=== PATIENT | male | born 1960 | race Caucasian/White ===

== ENCOUNTER 2018-04-03 10:17 | Emergency (ER) | payer BC ==
[2018-04-03 11:23] LABS: BASO # 0.1 10^3/uL (0.0-0.2); BASO % 1.2 % (0.0-1.0); EOS # 0.1 10^3/uL (0.0-0.50); EOS % 2.2 % (0.0-3.0); HEMATOCRIT 37.4 % (42.0-52.0); HEMOGLOBIN 12.4 g/dl (13.5-17.5); IMMATURE GRANULOCYTE % 0.2 % (0-3.0); LYMPH # 1.4 10^3/uL (1.5-4.5); LYMPH % 33.2 % (24.0-44.0); MEAN CORPUSCULAR HEMOGLOBIN 33.7 pg (27.0-33.0); MEAN CORPUSCULAR HGB CONC 33.2 g/dl (32.0-36.5); MEAN CORPUSCULAR VOLUME 101.6 fl (80.0-96.0); MONO # 0.5 10^3/uL (0.0-0.8); NEUTROPHILS # 2.1 10^3/uL (1.8-7.7); NEUTROPHILS % 51.2 % (36.0-66.0); PLATELET COUNT, AUTOMATED 204 10^3/uL (150-450); RED BLOOD COUNT 3.68 10^6/uL (4.30-6.10); RED CELL DISTRIBUTION WIDTH 11.4 % (11.5-14.5); WHITE BLOOD COUNT 4.2 10^3/uL (4.0-10.0)
[2018-04-03] MEDS: dexameTHASONE 20 MG/5 ML VIAL (J1100) IV (11:38)
[2018-04-03 11:41] LABS: ALBUMIN 3.6 GM/DL (3.2-5.2); ALKALINE PHOSPHATASE 116 U/L (45-117); ALT/SGPT 80 U/L (12-78); ANION GAP 9 MEQ/L (8-16); AST/SGOT 67 U/L (7-37); BILIRUBIN,DIRECT 0.2 MG/DL (0.0-0.2); BILIRUBIN,TOTAL 0.3 MG/DL (0.2-1.0); BLOOD UREA NITROGEN 11 MG/DL (7-18); C REACTIVE PROTEIN QUANTITATIV < 0.30 MG/DL (0.00-0.30); CALCIUM LEVEL 9.3 MG/DL (8.5-10.1); CARBON DIOXIDE LEVEL 23 MEQ/L (21-32); CHLORIDE LEVEL 111 MEQ/L (98-107); CREATININE FOR GFR 0.91 MG/DL (0.70-1.30); GLOMERULAR FILTRATION RATE > 60.0 (>56); GLUCOSE, FASTING 109 MG/DL (70-100); POTASSIUM SERUM 3.9 MEQ/L (3.5-5.1); SODIUM LEVEL 143 MEQ/L (136-145); TOTAL PROTEIN 7.2 GM/DL (6.4-8.2)
[2018-04-03 11:46] LABS: ERYTHROCYTE SEDIMENTATION RATE 18 mm/hr (0-20)
== END 2018-04-03 12:55 | disposition short-term general hospital (02) ==
LOC: M ED 10:17
DX: S14.129A Central cord syndrome at unspecified level of cervical spinal cord, initial encounter (principal); X58.XXXA Exposure to other specified factors, initial encounter; Y92.89 Other specified places as the place of occurrence of the external cause; M48.8X2 Other specified spondylopathies, cervical region; G62.9 Polyneuropathy, unspecified; I10 Essential (primary) hypertension; E11.9 Type 2 diabetes mellitus without complications; Z79.899 Other long term (current) drug therapy; J30.2 Other seasonal allergic rhinitis
CPT/HCPCS: J1100

== ENCOUNTER 2018-05-05 23:04 | Emergency (ER) | payer MEDICAID, BC ==
[2018-05-06 00:10] LABS: BASO # 0.1 10^3/uL (0.0-0.2); BASO % 0.7 % (0.0-1.0); EOS # 0.3 10^3/uL (0.0-0.50); HEMATOCRIT 37.6 % (42.0-52.0); IMMATURE GRANULOCYTE % 0.3 % (0-3.0); LYMPH # 2.3 10^3/uL (1.5-4.5); LYMPH % 33.9 % (24.0-44.0); MEAN CORPUSCULAR HEMOGLOBIN 31.8 pg (27.0-33.0); MEAN CORPUSCULAR HGB CONC 34.6 g/dl (32.0-36.5); MEAN CORPUSCULAR VOLUME 91.9 fl (80.0-96.0); MONO # 0.4 10^3/uL (0.0-0.8); MONO % 5.3 % (0.0-5.0); NEUTROPHILS # 3.8 10^3/uL (1.8-7.7); NEUTROPHILS % 55.8 % (36.0-66.0); PLATELET COUNT, AUTOMATED 249 10^3/uL (150-450); RED BLOOD COUNT 4.09 10^6/uL (4.30-6.10); RED CELL DISTRIBUTION WIDTH 11.1 % (11.5-14.5); WHITE BLOOD COUNT 6.8 10^3/uL (4.0-10.0)
[2018-05-06] MEDS: NS 1,000 ML IV (00:15)
[2018-05-06 00:28] LABS: AMMONIA 15 uMOL/L (<32)
[2018-05-06 00:40] LABS: ACETAMINOPHEN LEVEL < 2.0 UG/ML (10.0-30.0); ALBUMIN 3.5 GM/DL (3.2-5.2); ALBUMIN/GLOBULIN RATIO 0.95 (1.00-1.93); ALKALINE PHOSPHATASE 110 U/L (45-117); ALT/SGPT 20 U/L (12-78); ANION GAP 13 MEQ/L (8-16); AST/SGOT 21 U/L (7-37); BILIRUBIN,DIRECT 0.1 MG/DL (0.0-0.2); BILIRUBIN,TOTAL 0.3 MG/DL (0.2-1.0); BLOOD UREA NITROGEN 10 MG/DL (7-18); CALCIUM LEVEL 8.9 MG/DL (8.5-10.1); CARBON DIOXIDE LEVEL 23 MEQ/L (21-32); CHLORIDE LEVEL 109 MEQ/L (98-107); CPK CREATINE PHOSPHOKINASE 76 U/L (39-308); CREATININE FOR GFR 0.83 MG/DL (0.70-1.30); ETHYL ALCOHOL (ETHANOL) 0.382 % (0.000-0.010); GLOMERULAR FILTRATION RATE > 60.0 (>56); GLUCOSE, FASTING 186 MG/DL (70-100); MB/CK RELATIVE INDEX 1.32 (< OR =4); POTASSIUM SERUM 3.5 MEQ/L (3.5-5.1); SALICYLATE LEVEL < 1.7 MG/DL (5.0-30.0); SODIUM LEVEL 145 MEQ/L (136-145); THYROID STIMULATING HORMONE 0.689 uIU/ML (0.358-3.740); TOTAL PROTEIN 7.2 GM/DL (6.4-8.2); TROPONIN I < 0.02 NG/ML (< 0.10)
[2018-05-06 01:42] LABS: AMPHETAMINES LEVEL URINE NEGATIVE (NEGATIVE); BARBITURATES URINE NEGATIVE (NEGATIVE); BENZODIAZEPINES URINE NEGATIVE (NEGATIVE); CANNABINOIDS URINE NEGATIVE (NEGATIVE); COCAINE METABOLITE URINE NEGATIVE (NEGATIVE); METHADONE URINE NEGATIVE (NEGATIVE); OPIATES URINE NEGATIVE (NEGATIVE); PHENCYCLIDINE URINE NEGATIVE (NEGATIVE)
[2018-05-06] MEDS: ACETAMINOPHEN TAB 650MG DOSE (2X325MG) PO (06:00)
[2018-05-06] MEDS: ATENOLOL 25 MG TAB PO (09:51)
[2018-05-06] MEDS: hydroCHLOROthiazide 12.5 MG CAPSULE PO (09:51)
[2018-05-06] MEDS: OXAZEPAM 15 MG CAP PO (09:52)
[2018-05-06] MEDS: LISINOPRIL 20 MG TAB PO (09:52)
== END 2018-05-06 12:22 | disposition home or self-care (01) ==
LOC: M ED 23:04
DX: F10.229 Alcohol dependence with intoxication, unspecified (principal); Y90.1 Blood alcohol level of 20-39 mg/100 ml; I10 Essential (primary) hypertension; E78.9 Disorder of lipoprotein metabolism, unspecified; J30.2 Other seasonal allergic rhinitis; Z79.899 Other long term (current) drug therapy
CPT/HCPCS: 93005

== ENCOUNTER → 2018-05-13 | Outpatient (CLI) | payer MEDICAID ==
[2018-05-13 12:49] LABS: ESTIMATED AVERAGE GLUCOSE 137 MG/DL (60-110); HEMOGLOBIN A1c 6.4 %
[2018-05-13 13:02] LABS: ALBUMIN 4.1 GM/DL (3.2-5.2); ALBUMIN/GLOBULIN RATIO 1.11 (1.00-1.93); ALKALINE PHOSPHATASE 116 U/L (45-117); ALT/SGPT 19 U/L (12-78); ANION GAP 12 MEQ/L (8-16); AST/SGOT 24 U/L (7-37); BILIRUBIN,TOTAL 1.8 MG/DL (0.2-1.0); BLOOD UREA NITROGEN 12 MG/DL (7-18); CALCIUM LEVEL 9.6 MG/DL (8.5-10.1); CARBON DIOXIDE LEVEL 23 MEQ/L (21-32); CHLORIDE LEVEL 101 MEQ/L (98-107); CHOLESTEROL LEVEL 213 MG/DL (<200); CHOLESTEROL RISK RATIO 2.878 (<5); CREATININE FOR GFR 1.12 MG/DL (0.70-1.30); GLOMERULAR FILTRATION RATE > 60.0 (>56); GLUCOSE, FASTING 164 MG/DL (70-100); HDL CHOLESTEROL 74 MG/DL (>40); LDL CHOLESTEROL 96 MG/DL (<100); NON-HDL-C 139 MG/DL; POTASSIUM SERUM 3.8 MEQ/L (3.5-5.1); SODIUM LEVEL 136 MEQ/L (136-145); TOTAL PROTEIN 7.8 GM/DL (6.4-8.2); TRIGLYCERIDES LEVEL 213 MG/DL (<150)
[2018-05-13 13:48] LABS: TOTAL 25(OH) VITAMIN D 33.7 NG/ML (30.0-100.0)
== END ==
LOC: M LAB 11:50
DX: E78.2 Mixed hyperlipidemia (principal); E11.9 Type 2 diabetes mellitus without complications; E55.9 Vitamin D deficiency, unspecified; I10 Essential (primary) hypertension
CPT/HCPCS: 80053

== ENCOUNTER 2018-05-20 11:33 | Outpatient (RCR) | payer MEDICAID | END 2018-06-16 | LOC: M PT 11:33 | DX: Z51.89 Encounter for other specified aftercare (principal); M48.02 Spinal stenosis, cervical region | CPT/HCPCS: 97010 ==

== ENCOUNTER 2018-06-17 12:33 | Outpatient (RCR) | payer OTHER, MEDICAID | END 2018-07-16 | LOC: M PT 06-24 12:28 | DX: M48.02 Spinal stenosis, cervical region (principal) | CPT/HCPCS: 97110 ==

== ENCOUNTER 2018-06-29 12:41 | Emergency (ER) | payer OTHER ==
[2018-06-29] MEDS: NS 1,000 ML IV ×2 (14:15→16:50)
[2018-06-29 14:56] LABS: BASO % 0.6 % (0.0-1.0); EOS # 0.1 10^3/uL (0.0-0.50); EOS % 1.8 % (0.0-3.0); HEMATOCRIT 39.3 % (42.0-52.0); HEMOGLOBIN 13.3 g/dl (13.5-17.5); IMMATURE GRANULOCYTE % 0.3 % (0-3.0); LYMPH # 0.9 10^3/uL (1.5-4.5); MEAN CORPUSCULAR HGB CONC 33.8 g/dl (32.0-36.5); MEAN CORPUSCULAR VOLUME 94.5 fl (80.0-96.0); MONO # 0.5 10^3/uL (0.0-0.8); MONO % 7.9 % (0.0-5.0); NEUTROPHILS # 5.1 10^3/uL (1.8-7.7); NEUTROPHILS % 76.4 % (36.0-66.0); PLATELET COUNT, AUTOMATED 153 10^3/uL (150-450); RED BLOOD COUNT 4.16 10^6/uL (4.30-6.10); RED CELL DISTRIBUTION WIDTH 13.5 % (11.5-14.5); WHITE BLOOD COUNT 6.7 10^3/uL (4.0-10.0)
[2018-06-29 15:50] LABS: ANION GAP 10 MEQ/L (8-16); BLOOD UREA NITROGEN 14 MG/DL (7-18); CARBON DIOXIDE LEVEL 25 MEQ/L (21-32); CHLORIDE LEVEL 101 MEQ/L (98-107); CPK CREATINE PHOSPHOKINASE 101 U/L (39-308); CREATININE FOR GFR 1.26 MG/DL (0.70-1.30); ETHYL ALCOHOL (ETHANOL) < 0.003 % (0.000-0.010); GLOMERULAR FILTRATION RATE > 60.0 (>56); GLUCOSE, FASTING 217 MG/DL (70-100); MB/CK RELATIVE INDEX 2.38 (< OR =4); POTASSIUM SERUM 4.2 MEQ/L (3.5-5.1); SODIUM LEVEL 136 MEQ/L (136-145); TROPONIN I < 0.02 NG/ML (< 0.10)
== END 2018-06-29 17:06 | disposition home or self-care (01) ==
LOC: M ED 12:41
DX: I95.1 Orthostatic hypotension (principal); T42.8X5A Adverse effect of antiparkinsonism drugs and other central muscle-tone depressants, initial encounter; M62.838 Other muscle spasm; E11.9 Type 2 diabetes mellitus without complications; E78.00 Pure hypercholesterolemia, unspecified; J30.2 Other seasonal allergic rhinitis; Z79.899 Other long term (current) drug therapy
CPT/HCPCS: 93005

== ENCOUNTER → 2018-07-29 | Outpatient (CLI) | payer OTHER ==
[2018-07-29 14:57] LABS: BASO # 0.1 10^3/uL (0.0-0.2); BASO % 0.8 % (0.0-1.0); EOS # 0.1 10^3/uL (0.0-0.50); EOS % 1.5 % (0.0-3.0); HEMOGLOBIN 13.9 g/dl (13.5-17.5); IMMATURE GRANULOCYTE % 0.3 % (0-3.0); LYMPH # 1.6 10^3/uL (1.5-4.5); LYMPH % 21.2 % (24.0-44.0); MEAN CORPUSCULAR HEMOGLOBIN 33.3 pg (27.0-33.0); MEAN CORPUSCULAR HGB CONC 33.9 g/dl (32.0-36.5); MEAN CORPUSCULAR VOLUME 98.1 fl (80.0-96.0); MONO # 0.5 10^3/uL (0.0-0.8); NEUTROPHILS # 5.1 10^3/uL (1.8-7.7); NEUTROPHILS % 69.2 % (36.0-66.0); PLATELET COUNT, AUTOMATED 260 10^3/uL (150-450); RED BLOOD COUNT 4.18 10^6/uL (4.30-6.10); RED CELL DISTRIBUTION WIDTH 12.4 % (11.5-14.5); WHITE BLOOD COUNT 7.3 10^3/uL (4.0-10.0)
[2018-07-29 15:21] LABS: ALBUMIN 4.2 GM/DL (3.2-5.2); ALBUMIN/GLOBULIN RATIO 1.11 (1.00-1.93); ALKALINE PHOSPHATASE 112 U/L (45-117); ALT/SGPT 32 U/L (12-78); ANION GAP 7 MEQ/L (8-16); AST/SGOT 31 U/L (7-37); BILIRUBIN,TOTAL 1.1 MG/DL (0.2-1.0); BLOOD UREA NITROGEN 14 MG/DL (7-18); CALCIUM LEVEL 9.8 MG/DL (8.5-10.1); CARBON DIOXIDE LEVEL 28 MEQ/L (21-32); CHLORIDE LEVEL 103 MEQ/L (98-107); CHOLESTEROL LEVEL 191 MG/DL (<200); CHOLESTEROL RISK RATIO 2.195 (<5); CREATININE FOR GFR 1.06 MG/DL (0.70-1.30); GLOMERULAR FILTRATION RATE > 60.0 (>56); GLUCOSE, FASTING 127 MG/DL (70-100); HDL CHOLESTEROL 87 MG/DL (>40); LDL CHOLESTEROL 88 MG/DL (<100); NON-HDL-C 104 MG/DL; POTASSIUM SERUM 5.4 MEQ/L (3.5-5.1); SODIUM LEVEL 138 MEQ/L (136-145); TRIGLYCERIDES LEVEL 78 MG/DL (<150)
[2018-07-29 15:26] LABS: ESTIMATED AVERAGE GLUCOSE 137 MG/DL (60-110); HEMOGLOBIN A1c 6.4 %
== END ==
LOC: M LAB 13:55
DX: I10 Essential (primary) hypertension (principal); E11.9 Type 2 diabetes mellitus without complications
CPT/HCPCS: 80053

== ENCOUNTER 2018-08-05 12:35 | Outpatient (RCR) | payer OTHER ==
[~2018-08-05 12:35] MED LIST: AMBI10TA PO; ATEN25TA PO; FISH OIL PO; GABA-843 PO; GEMF600T5 PO; GLIM4TAB PO; JANUVIA PO; LIPI20TA OR; LISI20TA PO; MULTIVIT PO; ROSI2TA OR; TRAZ50TA OR; VITA50005 PO; VITAMIN D50000 UNT OR
== END 2018-08-16 ==
LOC: M PT 12:35
PROVIDERS: ATTEND Emergency Medicine
DX: M48.02 Spinal stenosis, cervical region (principal)

== ENCOUNTER 2018-09-09 15:51 | Emergency (ER) | payer OTHER ==
[2018-09-09 17:16] LABS: BASO % 0.3 % (0.0-1.0); EOS % 0.1 % (0.0-3.0); HEMATOCRIT 42.4 % (42.0-52.0); LYMPH # 0.7 10^3/uL (1.5-4.5); LYMPH % 9.7 % (24.0-44.0); MEAN CORPUSCULAR HEMOGLOBIN 34.2 pg (27.0-33.0); MEAN CORPUSCULAR HGB CONC 35.4 g/dl (32.0-36.5); MEAN CORPUSCULAR VOLUME 96.6 fl (80.0-96.0); MONO # 0.3 10^3/uL (0.0-0.8); MONO % 3.5 % (0.0-5.0); NEUTROPHILS # 6.4 10^3/uL (1.8-7.7); PLATELET COUNT, AUTOMATED 251 10^3/uL (150-450); RED BLOOD COUNT 4.39 10^6/uL (4.30-6.10); WHITE BLOOD COUNT 7.4 10^3/uL (4.0-10.0)
[2018-09-09 17:37] LABS: AMPHETAMINES LEVEL URINE NEGATIVE (NEGATIVE); BARBITURATES URINE NEGATIVE (NEGATIVE); BENZODIAZEPINES URINE NEGATIVE (NEGATIVE); CANNABINOIDS URINE NEGATIVE (NEGATIVE); COCAINE METABOLITE URINE NEGATIVE (NEGATIVE); METHADONE URINE NEGATIVE (NEGATIVE); OPIATES URINE NEGATIVE (NEGATIVE); PHENCYCLIDINE URINE NEGATIVE (NEGATIVE)
[2018-09-09] MEDS ORDERED: DEXTROSE 50% 50 ML SYRINGE As Ordered ONE (17:40)
[2018-09-09 17:58] LABS: ACETAMINOPHEN LEVEL < 2.0 UG/ML (10.0-30.0); ALBUMIN 4.5 GM/DL (3.2-5.2); ALT/SGPT 27 U/L (12-78); BILIRUBIN,DIRECT 0.4 MG/DL (0.0-0.2); BLOOD UREA NITROGEN 18 MG/DL (7-18); CALCIUM LEVEL 10.8 MG/DL (8.5-10.1); CARBON DIOXIDE LEVEL 28 MEQ/L (21-32); CHLORIDE LEVEL 100 MEQ/L (98-107); CREATININE FOR GFR 1.13 MG/DL (0.70-1.30); ETHYL ALCOHOL (ETHANOL) < 0.003 % (0.000-0.010); GLOMERULAR FILTRATION RATE > 60.0 (>56); GLUCOSE, FASTING 38 MG/DL (70-100); POTASSIUM SERUM 3.9 MEQ/L (3.5-5.1); SALICYLATE LEVEL < 1.7 MG/DL (5.0-30.0); SODIUM LEVEL 137 MEQ/L (136-145); THYROID STIMULATING HORMONE 0.663 uIU/ML (0.358-3.740); TOTAL PROTEIN 8.2 GM/DL (6.4-8.2)
[2018-09-09] MEDS ORDERED: DEXTROSE 50% 50 ML SYRINGE IV STA (18:00)
[2018-09-09 22:09] VITALS: BP 154/74
--- NOTE | 2018-09-10 10:43 | ECGEPIP ---
Stationary ECG Study [facility] - ED Test Date: 2018-09-09 Pat Name: THUY ROWE Department: Room: - Gender: M Sales Consulting Director: : 1960 Requested By: Dinah Rose Order Number: [id number] Reading MD: Dinah Rose Measurements Intervals [place] Rate: 70 P: 31 IA: 161 QRS: 25 QRSD: 91 T: -1 QT: 422 QTc: 456 Interpretive Statements SINUS RHYTHM NSTTW ABNORMALITY SIMILAR 06/29/18 Electronically Signed On 09-10-2018 10:43:26 EST by Dinah Rose
== END 2018-09-09 22:17 | disposition home or self-care (01) ==
LOC: EDBD 15:51 → M ED 15:51
DX: E11.649 Type 2 diabetes mellitus with hypoglycemia without coma (principal); I10 Essential (primary) hypertension; E78.5 Hyperlipidemia, unspecified; Z79.899 Other long term (current) drug therapy; J30.2 Other seasonal allergic rhinitis
CPT/HCPCS: 36415; 80048; 80076; 80307; 84443; 85025; 93005; 93041; 94760; 96374; 99285; G0480

== ENCOUNTER 2018-09-14 12:44 | Outpatient (RCR) | payer OTHER | END 2018-09-16 | LOC: M PT 12:44 | PROVIDERS: ATTEND Emergency Medicine | DX: M48.02 Spinal stenosis, cervical region (principal) ==

== ENCOUNTER 2018-09-24 14:47 | Outpatient (RCR) | payer OTHER ==
[2018-09-25] MEDS ORDERED: AFRI0.056 (16:37)
[2018-09-25] MEDS ORDERED: METF10004 PO (16:37)
[2018-09-25] MEDS ORDERED: VITMTA PO (16:37)
[2018-09-25] MEDS ORDERED: ATOR1TAB21 PO (16:37)
[2018-09-25] MEDS ORDERED: AMLO5TAB6 PO (16:37)
[2018-09-25] MEDS ORDERED: FENO160T10 PO (16:37)
[2018-09-25] MEDS ORDERED: MIRA33504 PO (16:37)
[2018-09-25] MEDS ORDERED: PSEU30TA21 PO (16:37)
[2018-09-27] MEDS ORDERED: PERC5TAB12 PO (06:43)
[2018-09-27] MEDS ORDERED: ASPI325T PO (06:43)
== END 2018-10-14 ==
LOC: M PT 14:47
PROVIDERS: ATTEND Emergency Medicine
DX: Z51.89 Encounter for other specified aftercare (principal); M48.02 Spinal stenosis, cervical region

== ENCOUNTER 2018-09-25 13:22 | Inpatient (IN) | payer OTHER ==
[~2018-09-25] VITALS: Ht 182.9 cm; Wt 93.6 kg
[2018-09-25 14:05] LABS: HEMATOCRIT 38.5 % (42.0-52.0); HEMOGLOBIN 12.9 g/dl (13.5-17.5); MEAN CORPUSCULAR HEMOGLOBIN 33.6 pg (27.0-33.0); MEAN CORPUSCULAR HGB CONC 33.5 g/dl (32.0-36.5); MEAN CORPUSCULAR VOLUME 100.3 fl (80.0-96.0); PLATELET COUNT, AUTOMATED 233 10^3/uL (150-450); RED BLOOD COUNT 3.84 10^6/uL (4.30-6.10); WHITE BLOOD COUNT 9.7 10^3/uL (4.0-10.0)
[2018-09-25] MEDS ORDERED: NS 1,000 ML IV ONE ×2 (14:15→14:45)
[2018-09-25 14:24] LABS: ALBUMIN 3.8 GM/DL (3.2-5.2); ALT/SGPT 24 U/L (12-78); BILIRUBIN,TOTAL 0.4 MG/DL (0.2-1.0); BLOOD UREA NITROGEN 23 MG/DL (7-18); CALCIUM LEVEL 9.1 MG/DL (8.5-10.1); CARBON DIOXIDE LEVEL 20 MEQ/L (21-32); CHLORIDE LEVEL 104 MEQ/L (98-107); CPK CREATINE PHOSPHOKINASE 66 U/L (39-308); CREATININE FOR GFR 2.43 MG/DL (0.70-1.30); GLOMERULAR FILTRATION RATE 29.4 (>56); GLUCOSE, FASTING 220 MG/DL (70-100); MB/CK RELATIVE INDEX 3.33 (< OR =4); POTASSIUM SERUM 4.3 MEQ/L (3.5-5.1); SODIUM LEVEL 135 MEQ/L (136-145); TOTAL PROTEIN 7.2 GM/DL (6.4-8.2); TROPONIN I < 0.02 NG/ML (< 0.10)
--- NOTE | 2018-09-25 14:24 | REP ---
CHEST, SINGLE VIEW: There is no evidence of acute infiltrate. No pleural effusion is seen. The heart is normal in size. The mediastinal silhouette is unremarkable. The visualized osseous structures are intact. IMPRESSION: No acute pulmonary disease. Electronically Signed by Terrell Whalen MD 09/25/2018 07:34 P
--- NOTE | 2018-09-25 14:47 | REP ---
LEFT ANKLE, FOUR VIEWS: Four views of the left ankle performed. There is a mildly displaced fracture of the distal fibula. There is mild widening of the medial aspect of the ankle mortise. I see no other definite fracture. IMPRESSION: Mildly displaced fracture distal fibula with mild widening of the medial aspect of the ankle mortise. Electronically Signed by Terrell Whalen MD 09/25/2018 07:36 P
[2018-09-25] MEDS ORDERED: AMLO5TAB6 PO (16:37)
[2018-09-25] MEDS ORDERED: AFRI0.056 (16:37)
[2018-09-25] MEDS ORDERED: PSEU30TA21 PO (16:37)
[2018-09-25] MEDS ORDERED: FENO160T10 PO (16:37)
[2018-09-25] MEDS ORDERED: ATOR1TAB21 PO (16:37)
[2018-09-25] MEDS ORDERED: VITMTA PO (16:37)
[2018-09-25] MEDS ORDERED: MIRA33504 PO (16:37)
[2018-09-25] MEDS ORDERED: METF10004 PO (16:37)
[2018-09-25] MEDS ORDERED: MIRALAX *UNIT DOSE* 17GM PACKET PO PRN (19:30)
[2018-09-25] MEDS ORDERED: BISACODYL 5 MG TAB PO PRN (19:30)
[2018-09-25] MEDS ORDERED: PSEUDOEPHEDRINE 30 MG TAB PO PRN (19:30)
--- NOTE | 2018-09-25 19:36 | ECGEPIP ---
Stationary ECG Study [facility] - ED Test Date: 2018-09-25 Pat Name: THUY ROWE Department: Room: - Gender: M Engineering Project Manager: [facility] : 1960 Requested By: HERNANDO Baig Order Number: [id number] Reading MD: Rtuh Smith Measurements Intervals [place] Rate: 87 P: 46 DC: 164 QRS: 21 QRSD: 100 T: 18 QT: 369 QTc: 446 Interpretive Statements SINUS RHYTHM NONSPECIFIC ST T WAVE CHANGES CW 09/09/[address] T WAVE CHANGES Electronically Signed On 09-25-2018 19:36:32 EST by Ruth Smith
[2018-09-25] MEDS ORDERED: GLUCOSE 4 GM CHEW TABLET PO PRN (19:45)
[2018-09-25] MEDS ORDERED: DEXTROSE 50% 50 ML SYRINGE IV PRN (19:45)
[2018-09-25] MEDS ORDERED: GLUCAGON FOR INJ 1 MG VIAL (J1610) SC PRN (19:45)
--- NOTE | 2018-09-25 20:19 | REPVR ---
EXAM: CT Head Without Contrast EXAM DATE/TIME: 09/25/2018 7:50 PM CLINICAL HISTORY: 57 years old, male; Injury or trauma; Fall; Additional info: S/P fall TECHNIQUE: Axial computed tomography images of the head/brain without contrast. All CT scans at this facility use at least one of these dose optimization techniques: automated exposure control; mA and/or kV adjustment per patient size (includes targeted exams where dose is matched to clinical indication); or iterative reconstruction. COMPARISON: No relevant prior studies available. FINDINGS: Brain: Unremarkable. No hemorrhage. No significant white matter disease. No edema. Ventricles: Unremarkable. No ventriculomegaly. Bones/joints: Unremarkable. No acute fracture. Sinuses: Visualized sinuses are unremarkable. No acute sinusitis. Mastoid air cells: Visualized mastoid air cells are unremarkable. No mastoid effusion. Soft tissues: Unremarkable. Vasculature: Mild atherosclerosis of the cavernous carotid arteries. IMPRESSION: No acute abnormality. Electronically signed by: Max Foss On 09/25/2018 20:19:20 PM
[2018-09-25] MEDS: HumaLOG INSULIN (NovoLOG) PER UNIT SC SCH (20:44)
[2018-09-25] MEDS: HEPARIN SOD (PORCINE) 5000 UNITS/ML VIAL SC SCH (20:58)
[2018-09-25] MEDS: zolPIDEM TARTRATE 5 MG TAB PO PRN (20:58)
[2018-09-25] MEDS: NS 1,000 ML IV SCH (20:58)
[2018-09-25] MEDS: ACETAMINOPHEN TAB 650MG DOSE (2X325MG) PO PRN (20:58)
[2018-09-25 22:00] VITALS: BP 157/90
[2018-09-25] MEDS: FLUTICASONE PROP 0.05% NASAL SPRAY 16 GM (FLONASE) NARES SCH (22:27)
[2018-09-26] MEDS: HEPARIN SOD (PORCINE) 5000 UNITS/ML VIAL SC SCH ×3 (05:22→20:58)
[2018-09-26] MEDS: ACETAMINOPHEN TAB 650MG DOSE (2X325MG) PO PRN ×2 (05:22→20:59)
[2018-09-26] MEDS: NS 1,000 ML IV SCH ×3 (05:23→20:58)
[2018-09-26 05:46] LABS: APPEARANCE, URINE CLEAR (CLEAR); BACTERIA, URINE AUTO NEGATIVE (NEGATIVE); BILIRUBIN, URINE AUTO NEGATIVE (NEGATIVE); BLOOD, URINE BLOOD NEGATIVE (NEGATIVE); COLOR, URINE YELLOW (YELLOW); GLUCOSE, URINE (UA) AUTO NEGATIVE (NEGATIVE); KETONE, URINE AUTO NEGATIVE (NEGATIVE); LEUKOCYTE ESTERASE, URINE AUTO NEGATIVE (NEGATIVE); NITRITE, URINE AUTO NEGATIVE (NEGATIVE); PROTEIN, URINE AUTO NEGATIVE (NEGATIVE); RBC, URINE AUTO 1 /HPF (0-3); SPECIFIC GRAVITY URINE AUTO 1.011 (1.002-1.035); SQUAMOUS EPITHELIAL CELL UR AU 0 /HPF (0-6); WBC, URINE AUTO 0 /HPF (0-3)
[2018-09-26 06:00] VITALS: BP 150/84
[2018-09-26 06:56] LABS: HEMATOCRIT 32.8 % (42.0-52.0); HEMOGLOBIN 11.3 g/dl (13.5-17.5); MEAN CORPUSCULAR HEMOGLOBIN 33.8 pg (27.0-33.0); MEAN CORPUSCULAR HGB CONC 34.5 g/dl (32.0-36.5); MEAN CORPUSCULAR VOLUME 98.2 fl (80.0-96.0); PLATELET COUNT, AUTOMATED 168 10^3/uL (150-450); RED BLOOD COUNT 3.34 10^6/uL (4.30-6.10); WHITE BLOOD COUNT 5.4 10^3/uL (4.0-10.0)
[2018-09-26 07:21] LABS: BLOOD UREA NITROGEN 15 MG/DL (7-18); CALCIUM LEVEL 8.7 MG/DL (8.5-10.1); CARBON DIOXIDE LEVEL 20 MEQ/L (21-32); CHLORIDE LEVEL 111 MEQ/L (98-107); CREATININE FOR GFR 0.95 MG/DL (0.70-1.30); GLOMERULAR FILTRATION RATE > 60.0 (>56); GLUCOSE, FASTING 155 MG/DL (70-100); POTASSIUM SERUM 4.2 MEQ/L (3.5-5.1); SODIUM LEVEL 139 MEQ/L (136-145)
[2018-09-26] MEDS: HumaLOG INSULIN (NovoLOG) PER UNIT SC SCH ×4 (07:30→20:59)
[2018-09-26] MEDS: ATENOLOL 25 MG TAB PO SCH (07:59)
[2018-09-26] MEDS: MULTIVITAMINS/MINERALS THERAP 1 TAB PO SCH (07:59)
[2018-09-26] MEDS: GEMFIBROZIL 600 MG TAB PO SCH (07:59)
[2018-09-26] MEDS: ATORVASTATIN 20 MG TAB PO SCH (07:59)
[2018-09-26] MEDS: FLUTICASONE PROP 0.05% NASAL SPRAY 16 GM (FLONASE) NARES SCH ×2 (07:59→21:00)
--- NOTE | 2018-09-26 09:01 | REP ---
LEFT LOWER LEG: AP and lateral views of the left lower leg performed. There is a mildly displaced fracture of the distal fibula. There is mild widening of the medial ankle mortise. The more proximal aspect of the tibia and fibula demonstrate no fracture or dislocation. IMPRESSION: Mildly displaced fracture distal fibula with widening of the medial ankle mortise. Electronically Signed by Terrell Whalen MD 09/26/2018 06:48 P
--- NOTE | 2018-09-26 09:03 | REP ---
RENAL AND BLADDER ULTRASOUND: Real-time sonographic evaluation of the kidneys performed. Kidneys are normal in size and echotexture, right kidney measuring 11.0 x 5.9 x 5.1 cm and left kidney 11.0 x 5.9 x 4.5 cm. There is no hydronephrosis or renal mass identified bilaterally. Urinary bladder measures 9.9 x 7.3 x 5.9 cm for a total volume of 221 mL. There is no bladder mass or calculus identified. Prostate measures 4.6 x 3.7 x 5.1 cm. IMPRESSION: No hydronephrosis. Electronically Signed by Terrell Whalen MD 09/26/2018 06:53 P
[2018-09-26 10:31] LABS: INR 1.02; PROTHROMBIN TIME 13.5 SECONDS (12.1-14.4)
[2018-09-26 10:32] LABS: PARTIAL THROMBOPLASTIN TIME 33.9 SECONDS (25.4-37.6)
--- NOTE | 2018-09-26 12:50 | IPN ---
DATE: 09/26/2018 PRIMARY CARE PROVIDER: Dr. Kiki Cat HISTORY: Jose R Germain was seen on . I spoke with Dr. Zuñiga, orthopedic doctor, this morning before and after seeing the patient. The patient is seen without the benefit of the history and physical, which is not yet transcribed. He has a history of type 2 diabetes, hypertension, hyperlipidemia. Denies any history of coronary artery disease, chronic obstructive pulmonary disease (COPD), asthma. He has had no recent problem with chest pain, shortness of breath, dyspnea on exertion. His exercise tolerance is the same was baseline. He has no recent epistaxis, rectal bleeding or urinary bleeding. PHYSICAL EXAMINATION: 155/68, pulse 85, 99.1 degrees. GENERAL APPEARANCE: Alert, conversant. In no acute distress. HEENT: Unremarkable. No jugular venous distention (JVD). LUNGS: Clear. HEART: Without murmur. ABDOMEN: Soft, nontender, no masses. EXTREMITIES: No peripheral edema. LABORATORIES: Sodium 139, potassium 4.2, BUN 15, creatinine is down to 0.95. White count 5.4, hemoglobin 11.3, platelets 168. He did not have coags ordered. Electrocardiogram (EKG) was reviewed and was essentially normal. IMPRESSION: 1. The patient's surgical risk is low and he should tolerate the proposed surgical procedure today without excessive risk. He is optimized for the proposed procedure. His blood pressure is under adequate control. His diabetes is under excellent control (hemoglobin A1/c is 6.1%). He has no active cardiopulmonary symptoms. I discussed this with Dr. Zuñiga and told him the patient is optimized for the operating room today. 2. Acute renal failure. Resolved with hydration. Renal ultrasound was unremarkable. I think that he was a little dehydrated and this could have involved a lab error, but there was a significant dramatic improvement in his renal function with just a little bit of IV fluid. 3. Diabetes. Sliding scale insulin coverage. Metformin has been held since admission. 4. Hypertension. Blood pressure is under adequate control and he is on atenolol. He takes amlodipine and Lisinopril/hydrochlorothiazide as an outpatient, which are both currently held. I agree with holding the ELDON inhibitor and diuretic to reduce the risk of perioperative hypotension. His amlodipine could be restarted if his blood pressure warrants. At this point, the atenolol alone is doing sufficiently well controlling his pressures. 5. Hyperlipidemia. Continue atorvastatin 20 mg daily. He is also on gemfibrozil for some reason. We will continue that for now. Anticipate the patient being discharged tomorrow.
--- NOTE | 2018-09-26 12:56 | HPE ---
DATE OF ADMISSION: 09/25/2018 CHIEF COMPLAINT: Left ankle pain. HISTORY OF PRESENT ILLNESS: The patient yesterday was walking down the steps at his house, missed the last two steps and fell injuring his left ankle. He presented promptly to [facility] emergency room with isolated left ankle joint pain. X-rays were obtained at that time and he was diagnosed with a displaced left ankle fracture. He was placed in a well-padded L and U splint by the emergency room staff. The hospitalist and orthopedics were consulted. The patient was admitted. At the time of admission, he was noted to have significant renal study abnormalities and was evaluated for that overnight by the hospitalist service. PAST MEDICAL HISTORY: Significant for hypertension, dyslipidemia, diabetes, and peripheral neuropathy. PAST SURGICAL HISTORY: He had a cervical spine decompression surgery in March 2018. CURRENT MEDICATIONS: - Lisinopril - gemfibrozil - atenolol - rosuvastatin - Zolpidem - multivitamin ALLERGIES: None known. SOCIAL HISTORY: Denies tobacco use. He occasionally drinks alcohol. He does live locally, lives alone. REVIEW OF SYSTEMS: No fevers, chills, nausea, vomiting, diarrhea, constipation, chest pain or shortness of breath. FAMILY HISTORY: Noncontributory. PHYSICAL EXAMINATION: Awake, alert and oriented times three, well-appearing male in no acute distress. He is afebrile with stable vital signs, slightly hypertensive. Cardiovascular: Regular rate and rhythm. Pulmonary: No increased work of breathing. Abdomen is soft, nontender, nondistended. Focused examination of left lower extremity: There is tenderness and low grade swelling diffusely in the medial and lateral ankle joint. The skin is intact and swelling is not excessive. Distally, he has 2+ dorsalis pedis pulse. The toes are pink, warm, well-perfused with less than 2 seconds capillary refill. He does demonstrate intact dorsi and plantar flexion of his toes, limited somewhat due to pain and guarding. He endorses unchanged symmetric bilateral decreased sensation in a stocking distribution consistent with his peripheral neuropathy. The left leg and knee are grossly atraumatic. X-rays of the left leg and ankle show a lateral malleolus fracture with subtle medial clear space widening. White blood cell count is 5.4, hemoglobin and hematocrit 11.3 and 32.8, respectively, platelets 168. Creatinine is 0.95, decreased from 2.43 yesterday. Glucose is 155. INR is 1.02. ASSESSMENT: Unstable left ankle fracture, as above. PLAN: I did discuss the risks and benefits of operative and nonoperative management with the patient. He is interested in going forward with surgery to give him the best chance at good reduction and healing. He does understand that he is at somewhat increased risk for perioperative complications given his diabetes, peripheral neuropathy and the possibility of a subtle renal abnormality. I did discuss the case with Dr. Neal, the hospitalist taking care of the patient at this time, and he believes the patient is medically optimized for surgery and so we will proceed to surgery this afternoon, which will be a left ankle open reduction and internal fixation. He did sign the surgical consent in my presence. TJ
[2018-09-26] MEDS ORDERED: ceFAZolin 2 GM/D5W 50 ML IV BAG (J0690 PER 500MG) As Ordered ONE (13:18)
[2018-09-26] MEDS ORDERED: BUPIVACAINE/EPIN 0.5% 30 ML VIAL As Ordered ONE (13:32)
[2018-09-26] MEDS ORDERED: PROPOFOL 200 MG/20 ML VIAL As Ordered ONE ×2 (14:06→14:11)
[2018-09-26] MEDS ORDERED: ONDANSETRON 4MG/2ML VIAL (J2405) As Ordered ONE (14:06)
[2018-09-26] MEDS ORDERED: BUPIVACAINE/DEXTROSE 0.75% 2 ML AMP As Ordered ONE (14:06)
[2018-09-26] MEDS ORDERED: MIDAZOLAM INJ 2 MG/2 ML VIAL (J2250) As Ordered ONE (14:06)
[2018-09-26] MEDS ORDERED: LR 1,000 ML IV SCH (15:30)
[2018-09-26] MEDS ORDERED: ONDANSETRON 4MG/2ML VIAL (J2405) IV PRN (15:30)
[2018-09-26] MEDS ORDERED: PERCOCET 5MG/325MG TAB PO PRN (15:30)
[2018-09-26] MEDS ORDERED: fentaNYL 100 MCG/2 ML INJECTION (J3010) IV PRN (15:30)
[2018-09-26] MEDS ORDERED: NORCO, ANEXSIA 5/325MG TABLET (HYDROcodone/ACETAMINOPHEN) PO PRN (15:30)
[2018-09-26 16:00] VITALS: BP 163/85
[2018-09-26 16:30] VITALS: BP 173/94
[2018-09-26 17:30] VITALS: BP 150/80
[2018-09-26] MEDS: PERCOCET 5MG/325MG TAB PO PRN ×2 (17:30→23:38)
[2018-09-26 18:30] VITALS: BP 145/70
[2018-09-26 20:00] VITALS: BP 148/73
[2018-09-26] MEDS: zolPIDEM TARTRATE 5 MG TAB PO PRN (21:33)
[2018-09-26] MEDS: ceFAZolin SOD 1 GM in D5W MINI-BAG PLUS 50 ML IV SCH (21:34)
[2018-09-27 00:30] VITALS: BP 174/85
[2018-09-27 05:00] VITALS: BP 156/77
[2018-09-27] MEDS: ceFAZolin SOD 1 GM in D5W MINI-BAG PLUS 50 ML IV SCH (05:46)
[2018-09-27] MEDS: HEPARIN SOD (PORCINE) 5000 UNITS/ML VIAL SC SCH ×3 (05:46→21:05)
[2018-09-27] MEDS: PERCOCET 5MG/325MG TAB PO PRN ×3 (05:47→21:06)
[2018-09-27 06:31] LABS: HEMATOCRIT 31.9 % (42.0-52.0); HEMOGLOBIN 10.9 g/dl (13.5-17.5); MEAN CORPUSCULAR HEMOGLOBIN 33.7 pg (27.0-33.0); MEAN CORPUSCULAR HGB CONC 34.2 g/dl (32.0-36.5); MEAN CORPUSCULAR VOLUME 98.8 fl (80.0-96.0); PLATELET COUNT, AUTOMATED 144 10^3/uL (150-450); RED BLOOD COUNT 3.23 10^6/uL (4.30-6.10); WHITE BLOOD COUNT 5.4 10^3/uL (4.0-10.0)
[2018-09-27] MEDS ORDERED: ASPI325T PO (06:43)
[2018-09-27] MEDS ORDERED: PERC5TAB12 PO (06:43)
[2018-09-27 06:56] LABS: BLOOD UREA NITROGEN 9 MG/DL (7-18); CALCIUM LEVEL 8.4 MG/DL (8.5-10.1); CARBON DIOXIDE LEVEL 23 MEQ/L (21-32); CHLORIDE LEVEL 107 MEQ/L (98-107); CREATININE FOR GFR 0.88 MG/DL (0.70-1.30); GLOMERULAR FILTRATION RATE > 60.0 (>56); GLUCOSE, FASTING 174 MG/DL (70-100); SODIUM LEVEL 136 MEQ/L (136-145)
[2018-09-27] MEDS: ATENOLOL 25 MG TAB PO SCH (08:42)
[2018-09-27] MEDS: HumaLOG INSULIN (NovoLOG) PER UNIT SC SCH ×4 (08:42→21:00)
[2018-09-27] MEDS: MULTIVITAMINS/MINERALS THERAP 1 TAB PO SCH (08:42)
[2018-09-27] MEDS: ATORVASTATIN 20 MG TAB PO SCH (08:42)
[2018-09-27] MEDS: GEMFIBROZIL 600 MG TAB PO SCH (08:43)
[2018-09-27] MEDS: FLUTICASONE PROP 0.05% NASAL SPRAY 16 GM (FLONASE) NARES SCH ×2 (08:43→21:05)
[2018-09-27 10:11] VITALS: BP 140/70
[2018-09-27] MEDS: amLODIPine 5 MG TAB PO SCH (10:12)
--- NOTE | 2018-09-27 10:39 | IPN ---
DATE: 09/27/2018 Jose R is seen in [address] [place] [address]. He underwent his surgical procedure yesterday and is expecting discharge home today, but he does not feel ready to go. He does not have anybody to look after him. He does not think that he can safely be discharged. PHYSICAL EXAMINATION: Vital signs stable. 156/77. Lungs clear. Heart regular rhythm. Abdomen soft, nontender. No peripheral edema. LABS: Blood sugars in the 200 range. Electrolytes unremarkable. Renal function is at baseline. CBC is unremarkable. PLAN: 1. I have spoken with the staff. Will get some physical therapy going. Hopefully, he can be discharged tomorrow. Patient and Family Service (PFS) is aware of the situation. 2. Acute renal failure, resolved with hydration. 3. Diabetes, on sliding scale of insulin. Restart metformin upon discharge. 4. Hypertension. Restart his amlodipine. Still holding lisinopril and hydrochlorothiazide. At this point, his regimen is atenolol and amlodipine. 5. Hyperlipidemia. Continue atorvastatin 20 mg daily as well as gemfibrozil. 6. ? History of alcohol abuse. According to nursing staff, the patient's son indicated that he was not able to care of his father because of his heavy alcohol use. The patient showed no indication of alcohol withdrawal symptoms and did not have any lab abnormalities such as abnormal liver function tests that we might see with this. He has shown no withdrawal and is requiring no medication for this. Dr. Georgie Jansen will be assuming his care tomorrow.
--- NOTE | 2018-09-27 10:53 | REP ---
C-ARM VIEWS, LEFT ANKLE: Multiple C-arm views, left ankle performed. There is placement of a metallic plate and multiple screws in the distal fibula. Structures are well aligned. 30 seconds fluoroscopy time utilized. Electronically Signed by Terrell Whalen MD 09/27/2018 10:52 P
--- NOTE | 2018-09-27 11:00 | REP ---
LEFT ANKLE, THREE VIEWS: Three views of left ankle performed. There is a metallic plate and multiple screws in the distal fibula for a fracture at that location. Structures are well aligned. Ankle mortise appears essentially anatomic. There is an overlying splint. Electronically Signed by Terrell Whalen MD 09/27/2018 10:53 P
[2018-09-27 14:00] VITALS: BP 136/69
--- NOTE | 2018-09-27 15:54 | HPE ---
DATE OF ADMISSION: 09/25/2018 PRIMARY CARE PHYSICIAN: Dr. Ave Cat TITLE INSURANCE SALES REPRESENTATIVE: Dr. Sinha HISTORY OF PRESENT ILLNESS: This is a 57-year-old male brought in by his daughter after a mechanical fall at home where he twisted his ankle while going up his stairs. He denies feeling any lightheadedness, dizziness, chest pain, shortness of breath or paresthesias prior to the fall. He states when he fell he did hit his head on the back, but otherwise did not feel any confusion, lightheadedness or dizziness afterwards either. In the emergency room (ER), he was noted to be hypertensive with a systolic blood pressure in the 90s and he was thereafter administered 2 liter boluses of normal saline after which he improved and he was no longer dizzy or lightheaded. He was dizzy and lightheadedness when systolic blood pressure was in the 90s and then improved after 2 liters of normal saline were administered. He did complain of left ankle pain; and on imaging in the emergency room (ER), it revealed a displaced fracture of the distal fibula with mild widening of the medial ankle mortise. The emergency room (ER) had consulted Dr. Zuñiga of orthopedics, who will possibly take Mr. Germain to the operating room in the morning if his renal function improves. In the emergency room (ER), he was noted to have BUN and creatinine of 23 and 2.43; where as at baseline, he has normal renal function. Hospitalist was called to admit for the fracture and acute kidney injury. PAST MEDICAL HISTORY: 1. Rui-lflfmuj-tsrknvsdu diabetes mellitus type 2. 2. Hypertension. 3. Hyperlipidemia. 4. Peripheral neuropathy. 5. Insomnia. HOME MEDICATIONS: - amlodipine 5 mg by mouth daily - atenolol 25 mg by mouth daily - atorvastatin 20 mg by mouth daily - vitamin D 66742 units by mouth every week - fenofibrate 160 mg by mouth daily - gemfibrozil 600 mg by mouth daily - lisinopril and hydrochlorothiazide one tab by mouth daily - metformin 1000 mg by mouth daily - multivitamins daily - Afrin as needed - MiraLAX as needed - pseudoephedrine as needed - Ambien 10 mg by mouth at bedtime (q.h.s.) as needed ALLERGIES: Seasonal allergies. SURGERIES: Cervical neck surgery, tonsillectomy. SOCIAL HISTORY: Alcohol: Drinks one bottle of whiskey per week, sometimes more, last drink was yesterday. Tobacco: Denies ever smoking. Illicit substances: Denies. Currently is unemployed. 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 REVIEW OF SYSTEMS: GENERAL: Denies fevers, chills, night sweats. HEENT: Denies blurred vision, eye pain, ear pain. Admits to mild pain on the back of head where he hit his head from the fall. CARDIAC: Denies chest pain or palpitations or lightheadedness. RESPIRATORY: Denies coughing, wheezing, sputum production or shortness of breath. GASTROINTESTINAL (GI): Denies nausea, vomiting, abdominal, no change in bowel habits. SKIN: Denies any new lesions or ulcerations. Admits to a cut on the back of his head from a fall. NEURO: Admits to peripheral neuropathy on bilateral feet. No new paresthesias or loss of sensation acutely. MUSCULOSKELETAL: Admits to pain on the left ankle from the fall, as well as mild pain on the back of his head. Admits to chronic low back pain. No other new pains or aches. PHYSICAL EXAMINATION: VITAL SIGNS: Temperature 97.3, pulse 84, respirations 18, blood pressure (BP) 144/71 with a MAP of 95, pulse oximetry 97% on room air. GENERAL: Pleasantly conversant, resting comfortably in bed in no acute distress. Alert and oriented times 3. HEENT: Normocephalic. A small 2 mm cut on the posterior scalp that is actively slowly bleeding and has some dry blood around it. No other visible lesions from the fall. Anicteric sclerae. Pupils equally round and reactive to light. Extraocular muscles intact. CARDIAC: Regular rate and rhythm. No audible murmurs. LUNGS: Equal to chest rise bilaterally and clear bilaterally. No wheezing, rhonchi or rales. ABDOMEN: Soft, nontender, nondistended. Positive bowel sounds. EXTREMITIES: 2+ radial pulses, 1+ dorsalis pedis pulses bilaterally. MUSCULOSKELETAL: Able to move bilateral upper extremities with full range of motion. Left lower extremity is currently in the cast placed by the emergency room (ER). Range of motion of bilateral feet is intact. He is able to wiggle his toes. NEURO: 2+ bilateral patellar reflexes. Decreased sensation in bilateral feet from his neuropathy. LABORATORY: White blood count (WBC) 9.7, hemoglobin and hematocrit 12.9, 38.5, platelets 233. Sodium 135, potassium 4.3, BUN and creatinine 23 and 2.43. Liver panel normal. Cardiac markers negative. IMAGING: Chest x-ray shows no acute process. Left ankle x-ray shows mildly displaced fracture of the distal fibula, as well as mild widening of the medial ankle mortise. The reads for the tib/fib x-ray and renal ultrasound are pending. ASSESSMENT AND PLAN: 1. Mechanical fall. The patient states he tripped when his ankle twisted going up the stairs. Imaging reveals a fracture of his distal left ankle fibula. The emergency room (ER) has consulted Dr. Zuñiga of orthopedics. Currently, left ankle is in a cast placed by the emergency room (ER). Plans are to possibly take the patient to the operating room tomorrow if his renal function improves. Will make the patient nothing by mouth after midnight and continue on IV fluids at 100 mL an hour overnight and reassess renal function in the morning. Nephrotoxins are on hold. He has been advised to avoid weight on his fractured side. He did also hit his head for which we are obtaining a CT of the head, currently pending. 2. Left distal fibular fracture. Plan is to possibly go to the operating room tomorrow with orthopedist, Dr. Zuñiga, see above. 3. Symptomatic hypotension. The patient normally has hypertension for which he is on amlodipine, atenolol and lisinopril/hydrochlorothiazide. Will place these on hold. The patient's systolic blood pressure was in the 80s to 90s in the emergency room (ER) which improved after 2 liters of normal saline were given. Will continue with IV saline infusion overnight and withhold his antihypertensives overnight, especially given his acute kidney injury. 4. Acute kidney injury at baseline. The patient has normal renal function. However, creatinine is 2.43 on admission. Currently, renal ultrasound and urinalysis are pending. The patient also is hyponatremic at 135 on admission. He will likely need fluid resuscitation. Continue IV fluids overnight and reassess kidney function in the a.m. Will hold his home nephrotoxins. Consider alternative antihypertensives if needed. 5. Hgx-imdhgaq-otvimrujo diabetes mellitus type 2. He is normally on metformin at home, which we will place on insulin sliding scale inpatient. 6. Hyperlipidemia. Continue his atorvastatin and fenofibrate and gemfibrozil. 7. Insomnia. Continue home Ambien. 8. Deep vein thrombosis (DVT) prophylaxis, heparin subcutaneous. DISPOSITION: Will admit to the hospitalist service with possible OR for his left ankle fracture in the morning pending renal function improvement. My faculty preceptor for this patient encounter was physically present during the encounter and was fully available. All aspects of the patient interview, examination, medical decision making process, and medical care plan development were reviewed and approved by the faculty preceptor. The faculty preceptor is aware and concurs with the plan as stated in the body of this note and will attest to such by his/her cosignature. TJ
--- NOTE | 2018-09-27 17:48 | ROES ---
DATE OF SURGERY: 09/26/2018 PREOPERATIVE DIAGNOSIS: Left ankle unstable Horne B lateral malleolus fracture. POSTOPERATIVE DIAGNOSIS: Left ankle unstable Horne B lateral malleolus fracture. PROCEDURE PERFORMED: Left ankle open reduction internal fixation. SURGEON: Dr. Humberto Zuñiga. BEHAVIORAL CONSULTANT: SAROJ Betts First Assistant ANESTHESIA: Spinal. ESTIMATED BLOOD LOSS: 20 mL. IMPLANTS: Synthes distal fibula locking plate and screws. No specimens were removed. No blood administered. No complications. DESCRIPTION OF PROCEDURE: The patient was identified in the preoperative holding area by name, medical record number, and date of . Surgical site was marked in consultation with the patient, and he was evaluated by anesthesia. When he was ready, he was brought back to operating suite on a gurney and transferred to the operating room (OR) table. At this point, spinal anesthesia was induced. The left lower extremity was sterilely prepped and draped in the usual fashion. Prior to beginning the procedure. A final time-out was performed and all agreed. He was given IV antibiotics, Ancef 2 grams, prior to incision. I began the procedure by exsanguinating the left lower extremity with the Esmarch tourniquet, inflating the left upper thigh tourniquet to 250 mmHg and established a standard lateral approach to the fibula dissecting down through skin and subcutaneous fat. I next identified the short oblique fracture site, provisionally reducing it with [id number] reduction clamps and next securing it in place with a single screw in lag fashion, achieving good compression across the fracture site and good purchase in each cortex. Next, an appropriately sized Synthes distal fibula locking plate was applied and secured with four locking screws distally and two nonlocking and one locking screw proximally. Following this, fluoroscopic views in AP, mortise, oblique and lateral confirmed satisfactory placement of hardware, reduction of the mortise, reduction of the fracture and internal fixation. Dorsiflexion, external rotation, stress and hook test at this time were both negative indicating no need for syndesmotic stabilization. The wound was next copiously irrigated, the tourniquet was deflated. There was some superficial venous bleeding which was controlled. The wound was next irrigated and closed in layers. Sterile dressings and L and U splint were applied, and the patient was brought out of anesthesia. edited: 09/30/2018 [id number]
[2018-09-27 21:00] VITALS: BP 175/81
[2018-09-27] MEDS: zolPIDEM TARTRATE 5 MG TAB PO PRN (21:05)
[2018-09-28] MEDS: PERCOCET 5MG/325MG TAB PO PRN ×3 (03:00→21:01)
[2018-09-28 06:00] VITALS: BP 131/69
[2018-09-28] MEDS: HEPARIN SOD (PORCINE) 5000 UNITS/ML VIAL SC SCH ×3 (06:23→21:00)
[2018-09-28 07:06] LABS: HEMATOCRIT 33.9 % (42.0-52.0); HEMOGLOBIN 11.3 g/dl (13.5-17.5); MEAN CORPUSCULAR HGB CONC 33.3 g/dl (32.0-36.5); MEAN CORPUSCULAR VOLUME 99.1 fl (80.0-96.0); PLATELET COUNT, AUTOMATED 149 10^3/uL (150-450); RED BLOOD COUNT 3.42 10^6/uL (4.30-6.10)
[2018-09-28 07:28] LABS: BLOOD UREA NITROGEN 6 MG/DL (7-18); CALCIUM LEVEL 8.7 MG/DL (8.5-10.1); CARBON DIOXIDE LEVEL 23 MEQ/L (21-32); CHLORIDE LEVEL 105 MEQ/L (98-107); CREATININE FOR GFR 0.87 MG/DL (0.70-1.30); GLOMERULAR FILTRATION RATE > 60.0 (>56); GLUCOSE, FASTING 174 MG/DL (70-100); POTASSIUM SERUM 3.7 MEQ/L (3.5-5.1); SODIUM LEVEL 136 MEQ/L (136-145)
[2018-09-28] MEDS: GEMFIBROZIL 600 MG TAB PO SCH (08:42)
[2018-09-28] MEDS: ATENOLOL 25 MG TAB PO SCH (08:42)
[2018-09-28] MEDS: HumaLOG INSULIN (NovoLOG) PER UNIT SC SCH ×4 (08:42→21:00)
[2018-09-28] MEDS: MULTIVITAMINS/MINERALS THERAP 1 TAB PO SCH (08:42)
[2018-09-28] MEDS: ATORVASTATIN 20 MG TAB PO SCH (08:43)
[2018-09-28] MEDS: amLODIPine 5 MG TAB PO SCH (08:43)
[2018-09-28] MEDS: FLUTICASONE PROP 0.05% NASAL SPRAY 16 GM (FLONASE) NARES SCH ×2 (08:57→21:00)
[2018-09-28 14:00] VITALS: BP 139/70
[2018-09-28] MEDS: zolPIDEM TARTRATE 5 MG TAB PO PRN (21:02)
--- NOTE | 2018-09-29 00:17 | IPNPDOC ---
Text Note Date of Service The patient was seen on 09/28/18. NOTE SUBJECTIVE: No complaints today . patient has difficulty with mobilization and there is no one to help him at home. [facility]. PHYSICAL EXAMINATION: VITAL SIGNS: As below. GENERAL: Pleasantly conversant, resting comfortably in bed in no acute distress. Alert and oriented times 3. HEENT: Normocephalic. Anicteric sclerae. Pupils equally round and reactive to light. Extraocular muscles intact. CARDIAC: Regular rate and rhythm. No audible murmurs. LUNGS: Equal to chest rise bilaterally and clear bilaterally. No wheezing, rhonchi or rales. ABDOMEN: Soft, nontender, nondistended. Positive bowel sounds. EXTREMITIES: 2+ radial pulses, 1+ dorsalis pedis pulses bilaterally. No edema Labs and radiology: reviewed Assessment and plan: This is a 57-year-old male with history of Dm and diabetic neuropathy, hypertension , hyperlipidemia, insomnia was brought in by his daughter after a mechanical fall at home where he twisted his ankle while going down the stairs. In the emergency room (ER), he was noted to be hypotensive with a systolic blood pressure in the 90s and he was thereafter administered 2 liter boluses of normal saline. He was dizzy and lightheadedness when systolic blood pressure was in the 90s and then improved after 2 liters of normal saline were administered. He did complain of left ankle pain; and on imaging in the emergency room (ER), it revealed a displaced fracture of the distal fibula with mild widening of the medial ankle mortise. He was also noted to have EPIFANIO. Left Ankle fracture s/p Mechanical Fallunderwent surgery on 09/26 awaiting to go to [facility]. Acute renal failure resolved with hydration. Diabetes with neuropathy on sliding scale of insulin. Restart metformin upon discharge. Hypertension. On amlodipine and atenolol. Still holding lisinopril and hydrochlorothiazide. Hyperlipidemia. Continue atorvastatin 20 mg daily as well as gemfibrozil. ? History of alcohol abuse. According to nursing staff, the patient's son indicated that he was not able to care of his father because of his heavy alcohol use. The patient showed no indication of alcohol withdrawal symptoms and did not have any lab abnormalities such as abnormal liver function tests that we might see with this. DVT prophylaxis in place. VS,Fishbone, I+O VS, Fishbone, I+O Laboratory Tests 09/28/18 06:31 Red Blood Count 3.42 L, Mean Corpuscular Volume 99.1 H, Mean Corpuscular Hemoglobin 33.0, Mean Corpuscular Hemoglobin Concent 33.3, Red Cell Distribution Width 11.2 L, Calcium Level 8.7 Vital Signs Date Time Temp Pulse Resp B/P (MAP) Pulse Ox O2 Delivery O2 Flow Rate FiO2 09/28/18 21:31 17 09/28/18 16:00 99.1 09/28/18 14:00 80 139/70 (93) 97 09/26/18 15:45 Room Air I&O- Last 24 Hours up to 6 AM 09/29/18 06:00 Intake Total 1060 ml Output Total 950 ml Balance 110 ml RAYA WEISS MD Sep 29, 2018 00:17
[2018-09-29] MEDS: HEPARIN SOD (PORCINE) 5000 UNITS/ML VIAL SC SCH ×3 (05:34→20:58)
[2018-09-29] MEDS: PERCOCET 5MG/325MG TAB PO PRN ×3 (05:35→18:15)
[2018-09-29 07:36] LABS: HEMATOCRIT 32.7 % (42.0-52.0); HEMOGLOBIN 10.8 g/dl (13.5-17.5); MEAN CORPUSCULAR HEMOGLOBIN 33.4 pg (27.0-33.0); MEAN CORPUSCULAR VOLUME 101.2 fl (80.0-96.0); PLATELET COUNT, AUTOMATED 171 10^3/uL (150-450); RED BLOOD COUNT 3.23 10^6/uL (4.30-6.10); WHITE BLOOD COUNT 5.5 10^3/uL (4.0-10.0)
[2018-09-29 07:56] LABS: BLOOD UREA NITROGEN 9 MG/DL (7-18); CALCIUM LEVEL 8.9 MG/DL (8.5-10.1); CARBON DIOXIDE LEVEL 24 MEQ/L (21-32); CHLORIDE LEVEL 104 MEQ/L (98-107); CREATININE FOR GFR 0.75 MG/DL (0.70-1.30); GLOMERULAR FILTRATION RATE > 60.0 (>56); GLUCOSE, FASTING 150 MG/DL (70-100); POTASSIUM SERUM 3.9 MEQ/L (3.5-5.1); SODIUM LEVEL 137 MEQ/L (136-145)
[2018-09-29] MEDS: MULTIVITAMINS/MINERALS THERAP 1 TAB PO SCH (08:51)
[2018-09-29] MEDS: ATORVASTATIN 20 MG TAB PO SCH (08:51)
[2018-09-29] MEDS: amLODIPine 5 MG TAB PO SCH (08:51)
[2018-09-29] MEDS: ATENOLOL 25 MG TAB PO SCH (08:51)
[2018-09-29] MEDS: GEMFIBROZIL 600 MG TAB PO SCH (08:51)
[2018-09-29] MEDS: HumaLOG INSULIN (NovoLOG) PER UNIT SC SCH ×4 (08:52→20:59)
[2018-09-29] MEDS: FLUTICASONE PROP 0.05% NASAL SPRAY 16 GM (FLONASE) NARES SCH ×2 (09:00→20:59)
[2018-09-29 20:00] VITALS: BP 166/76
[2018-09-29] MEDS: zolPIDEM TARTRATE 5 MG TAB PO PRN (20:58)
[2018-09-29] MEDS: ACETAMINOPHEN TAB 650MG DOSE (2X325MG) PO PRN (20:58)
--- NOTE | 2018-09-29 21:24 | IPNPDOC ---
Text Note Date of Service The patient was seen on 09/29/18. NOTE SUBJECTIVE: No complaints today . Awaiting [facility]. PHYSICAL EXAMINATION: VITAL SIGNS: As below. GENERAL: Pleasantly conversant, resting comfortably in bed in no acute distress. Alert and oriented times 3. HEENT: Normocephalic. Anicteric sclerae. Pupils equally round and reactive to light. Extraocular muscles intact. CARDIAC: Regular rate and rhythm. No audible murmurs. LUNGS: Equal to chest rise bilaterally and clear bilaterally. No wheezing, rhonchi or rales. ABDOMEN: Soft, nontender, nondistended. Positive bowel sounds. EXTREMITIES: 2+ radial pulses, 1+ dorsalis pedis pulses bilaterally. No edema Labs and radiology: reviewed Assessment and plan: This is a 57-year-old male with history of Dm and diabetic neuropathy, hypertension , hyperlipidemia, insomnia was brought in by his daughter after a mechanical fall at home where he twisted his ankle while going down the stairs. In the emergency room (ER), he was noted to be hypotensive with a systolic blood pressure in the 90s and he was thereafter administered 2 liter boluses of normal saline. He was dizzy and lightheadedness when systolic blood pressure was in the 90s and then improved after 2 liters of normal saline were administered. He did complain of left ankle pain; and on imaging in the em ergency room (ER), it revealed a displaced fracture of the distal fibula with mild widening of the medial ankle mortise. He was also noted to have EPIFANIO. Left Ankle fracture s/p Mechanical Fallunderwent surgery on 09/26 awaiting to go to [facility]. Acute renal failure resolved with hydration. Diabetes with neuropathy on sliding scale of insulin. Restart metformin upon discharge. Hypertension. On amlodipine and atenolol. Still holding lisinopril and hydrochlorothiazide. Hyperlipidemia. Continue atorvastatin 20 mg daily as well as gemfibrozil. ? History of alcohol abuse. According to nursing staff, the patient's son indicated that he was not able to care of his father because of his heavy alcohol use. The patient showed no indication of alcohol withdrawal symptoms and did not have any lab abnormalities such as abnormal liver function tests that we might see with this. DVT prophylaxis in place. VS,Fishbone, I+O VS, Fishbone, I+O Laboratory Tests 09/29/18 07:01 Red Blood Count 3.23 L, Mean Corpuscular Volume 101.2 H, Mean Corpuscular Hemoglobin 33.4 H, Mean Corpuscular Hemoglobin Concent 33.0, Red Cell Distribution Width 11.1 L 09/29/18 07:02 Calcium Level 8.9 Vital Signs Date Time Temp Pulse Resp B/P (MAP) Pulse Ox O2 Delivery O2 Flow Rate FiO2 09/29/18 19:15 18 09/29/18 08:51 80 131/69 09/28/18 16:00 99.1 09/28/18 14:00 97 09/26/18 15:45 Room Air I&O- Last 24 Hours up to 6 AM 09/29/18 06:00 Intake Total 1180 ml Output Total 1275 ml Balance -95 ml RAYA WEISS MD Sep 29, 2018 21:24
--- NOTE | 2018-09-30 00:24 | DS.PDOC ---
Discharge Summary General Date of Admission Sep 27, 2018 at 17:03 Date of Discharge 09/30/18 PCP: Ave xie Attending Physician: RAYA WEISS MD Specialist/Consultants Involve: NEELIMA KRUEGER MD Discharge Summary PROCEDURES PERFORMED DURING STAY: Left ankle ORIF on 09/25/18. DISCHARGE DIAGNOSES: Left ankle fracture s/p ORIF EPIFANIO Diabetes with neuropathy Hypertension hyperlipidemia alcohol abuse. COMPLICATIONS/CHIEF COMPLAINT: Acute Renal Failure, Orthostatic Hypotension. HISTORY OF PRESENT ILLNESS: please see history and physical HOSPITAL COURSE: This is a 57-year-old male with history of Dm and diabetic neuropathy, hypertension , hyperlipidemia, insomnia was brought in by his daughter after a mechanical fall at home where he twisted his ankle while going down the stairs. In the emergency room (ER), he was noted to be hypotensive with a systolic blood pressure in the 90s and he was thereafter administered 2 liter boluses of normal saline. He was dizzy and lightheadedness when systolic blood pressure was in the 90s and then improved after 2 liters of normal saline were administered. He did complain of left ankle pain; [facility] it revealed a displaced fracture of the distal fibula with mild widening of the medial ankle mortise. He was also noted to have EPIFANIO. Left Ankle fracture s/p Mechanical Fall under went surgery on 09/26 awaiting to go to [facility] [place]. Hypotension on admission due to dehydration on the background of multiple antihypertensive medications could be due to heavy alcohol use. . Acute renal failure resolved with hydration. Diabetes with neuropathy on sliding scale of insulin. Restart metformin upon discharge. Hypertension. On amlodipine and atenolol. Still holding lisinopril and hydrochlorothiazide. Hyperlipidemia. Continue atorvastatin 20 mg daily as well as gemfibrozil. ? History of alcohol abuse. According to nursing staff, the patient's son indicated that he was not able to care of his father because of his heavy alcohol use. The patient showed no indication of alcohol withdrawal symptoms and did not have any lab abnormalities such as abnormal liver function tests that we might see with this. DISCHARGE MEDICATIONS: Please see below. ALLERGIES: Please see below. PHYSICAL EXAMINATION ON DISCHARGE: VITAL SIGNS: Please see below. GENERAL: Pleasantly conversant, resting comfortably in bed in no acute distress. Alert and oriented times 3. HEENT: Normocephalic. Anicteric sclerae. Pupils equally round and reactive to light. Extraocular muscles intact. CARDIAC: Regular rate and rhythm. No audible murmurs. LUNGS: Equal to chest rise bilaterally and clear bilaterally. No wheezing, rhonchi or rales. ABDOMEN: Soft, nontender, nondistended. Positive bowel sounds. EXTREMITIES: 2+ radial pulses, 1+ dorsalis pedis pulses bilaterally. No edema LABORATORY DATA: Please see below. ACTIVITY: [As tolerated]. DIET: Carb consistent DISCHARGE PLAN: [facility] DISPOSITION: . DISCHARGE INSTRUCTIONS: Follow up with MD in [place] Follow up with ortho as directed. DISCHARGE CONDITION: Stable TIME SPENT ON DISCHARGE: Greater than 30 minutes. Vital Signs/I&Os Vital Signs Date Time Temp Pulse Resp B/P (MAP) Pulse Ox O2 Delivery O2 Flow Rate FiO2 09/29/18 19:15 18 09/29/18 08:51 80 131/69 09/28/18 16:00 99.1 09/28/18 14:00 97 09/26/18 15:45 Room Air I&O- Last 24 Hours up to 6 AM 09/30/18 06:00 Intake Total 840 ml Output Total 1100 ml Balance -260 ml Laboratory Data Labs 24H Laboratory Tests 2 09/29/18 07:01: Nucleated Red Blood Cells % (auto) 0.0 09/29/18 07:02: Anion Gap 9, Glomerular Filtration Rate > 60.0, Blood Urea Nitrogen 9, Creatinine 0.75, Sodium Level 137, Potassium Level 3.9, Chloride Level 104, Carbon Dioxide Level 24, Calcium Level 8.9 09/29/18 07:35: Bedside Glucose (Misc Panel) 152H 09/29/18 11:54: Bedside Glucose (Misc Panel) 235H 09/29/18 17:32: Bedside Glucose (Misc Panel) 172H 09/29/18 20:49: Bedside Glucose (Misc Panel) 167H CBC/BMP Laboratory Tests 09/29/18 07:01 Red Blood Count 3.23 L, Mean Corpuscular Volume 101.2 H, Mean Corpuscular Hemoglobin 33.4 H, Mean Corpuscular Hemoglobin Concent 33.0, Red Cell Distribu tion Width 11.1 L 09/29/18 07:02 Calcium Level 8.9 FSBS Laboratory Tests Test 09/29/18 07:35 09/29/18 11:54 09/29/18 17:32 09/29/18 20:49 Range/Units Bedside Glucose (Misc Panel) 152 235 172 167 70-105 MG/DL Discharge Medications Scheduled (Lisinopril/Hydrochlorothi 20-12.5 mg) 1 Tab Tab, 1 TAB PO DAILY, (Reported) Amlodipine Besylate (Amlodipine Besylate) 5 Mg Tab, 5 MG PO DAILY, (Reported) Aspirin (Aspirin) 325 Mg Tab, 1 TAB PO DAILY X 4 weeks Atenolol (Atenolol) 25 Mg Tab, 25 MG PO DAILY, (Reported) Atorvastatin Calcium (Atorvastatin Calcium) 20 Mg Tab, 20 MG PO DAILY, (Reported) Ergocalciferol (Vitamin D) 50,000 Unit Cap, 50,000 UNIT PO QWEEK, (Reported) MONDAYS Fenofibrate (Fenofibrate) 160 Mg Tab, 160 MG PO DAILY, (Reported) Gemfibrozil (Gemfibrozil) 600 Mg Tab, 600 MG PO DAILY, (Reported) Metformin Hydrochloride (Metformin HCl) 1,000 Mg Tab, 1,000 MG PO DAILY, (Reported) Multivitamins *[facility] STOCKED* (Thera M Plus *[facility] STOCKED*) 1 Tab Tab, 1 TAB PO DAILY, (Reported) Scheduled PRN Oxycodone/Acetaminophen (Percocet 5-325 mg) 1 Tab Tab, 1 TAB PO Q4H PRN for PAIN Oxymetazoline HCl (Afrin) 0.05 % Spr, 2 SPRAY NA for CONGESTION, (Reported) Polyethylene Glycol (Miralax) 1 Pow Pow, 17 GM PO DAILY PRN for CONSTIPATION, (Reported) Pseudoephedrine (Pseudoephedrine HCl) 30 Mg Tab, 30 MG PO for CONGESTION, (Reported) Zolpidem Tartrate (Ambien) 10 Mg Tab, 10 MG PO QHS PRN for SLEEP, (Reported) Allergies Coded Allergies: SEASONAL ALLERGIES (Verified Allergy, Unknown, 03/25/18) RAYA WEISS MD Sep 30, 2018 00:24
[2018-09-30] MEDS: PERCOCET 5MG/325MG TAB PO PRN ×2 (04:02→10:34)
[2018-09-30] MEDS: HEPARIN SOD (PORCINE) 5000 UNITS/ML VIAL SC SCH (05:50)
[2018-09-30 06:00] VITALS: BP_SYST 128; BP_SYST 148; BP_DIAS 82
[2018-09-30 06:56] LABS: HEMATOCRIT 31.4 % (42.0-52.0); HEMOGLOBIN 10.4 g/dl (13.5-17.5); MEAN CORPUSCULAR HEMOGLOBIN 33.3 pg (27.0-33.0); MEAN CORPUSCULAR HGB CONC 33.1 g/dl (32.0-36.5); MEAN CORPUSCULAR VOLUME 100.6 fl (80.0-96.0); PLATELET COUNT, AUTOMATED 204 10^3/uL (150-450); RED BLOOD COUNT 3.12 10^6/uL (4.30-6.10); WHITE BLOOD COUNT 4.7 10^3/uL (4.0-10.0)
[2018-09-30 07:22] LABS: BLOOD UREA NITROGEN 10 MG/DL (7-18); CALCIUM LEVEL 9.3 MG/DL (8.5-10.1); CARBON DIOXIDE LEVEL 24 MEQ/L (21-32); CHLORIDE LEVEL 107 MEQ/L (98-107); CREATININE FOR GFR 0.82 MG/DL (0.70-1.30); GLOMERULAR FILTRATION RATE > 60.0 (>56); GLUCOSE, FASTING 160 MG/DL (70-100); SODIUM LEVEL 139 MEQ/L (136-145)
[2018-09-30] MEDS: HumaLOG INSULIN (NovoLOG) PER UNIT SC SCH (08:29)
[2018-09-30 08:30] VITALS: BP 130/80
[2018-09-30] MEDS: ATORVASTATIN 20 MG TAB PO SCH (08:30)
[2018-09-30] MEDS: MULTIVITAMINS/MINERALS THERAP 1 TAB PO SCH (08:30)
[2018-09-30] MEDS: amLODIPine 5 MG TAB PO SCH (08:30)
[2018-09-30] MEDS: GEMFIBROZIL 600 MG TAB PO SCH (08:30)
[2018-09-30] MEDS: FLUTICASONE PROP 0.05% NASAL SPRAY 16 GM (FLONASE) NARES SCH (08:31)
[2018-09-30] MEDS: ATENOLOL 25 MG TAB PO SCH (08:31)
== END 2018-09-30 11:20 | DRG 313 ==
LOC: M ED 13:22 → M ED INP 17:49 → M MS4PR 19:10 → OBSVTOIN 09-27 17:03
PROVIDERS: ADMIT Internal Medicine; ATTEND Internal Medicine Nephrology
PROC: 0QSK04Z Reposition Left Fibula with Internal Fixation Device, Open Approach (ICD-10-PCS; principal; 2018-09-26 09:35)
DX: S82.62XA Displaced fracture of lateral malleolus of left fibula, initial encounter for closed fracture (principal); N17.9 Acute kidney failure, unspecified; E11.40 Type 2 diabetes mellitus with diabetic neuropathy, unspecified; I95.9 Hypotension, unspecified; E87.1 Hypo-osmolality and hyponatremia; I10 Essential (primary) hypertension; F10.10 Alcohol abuse, uncomplicated; E78.5 Hyperlipidemia, unspecified; G47.00 Insomnia, unspecified; E86.0 Dehydration; Z79.899 Other long term (current) drug therapy; Z79.82 Long term (current) use of aspirin; W10.8XXA Fall (on) (from) other stairs and steps, initial encounter; Y92.009 Unspecified place in unspecified non-institutional (private) residence as the place of occurrence of the external cause

== ENCOUNTER 2018-11-10 13:04 | Outpatient (RCR) | payer OTHER ==
[~2018-11-10 13:04] MED LIST changes: +AFRI0.056; +AMLO5TAB6 PO; +ASPI325T PO; +ATOR1TAB21 PO; +FENO160T10 PO; +METF10004 PO; +MIRA33504 PO; +PERC5TAB12 PO; +PSEU30TA21 PO; +VITMTA PO
== END 2018-11-14 ==
LOC: M PT 13:04
PROVIDERS: ATTEND Family Medicine
DX: G62.9 Polyneuropathy, unspecified (principal); S82.62XD Displaced fracture of lateral malleolus of left fibula, subsequent encounter for closed fracture with routine healing

== ENCOUNTER → 2018-12-09 | Outpatient (CLI) | payer OTHER ==
[~2018-12-09] MED LIST changes: +ASPI-1 PO; -ASPI325T PO
[2018-12-09 15:20] LABS: BASO # 0.1 10^3/uL (0.0-0.2); BASO % 1.1 % (0.0-1.0); EOS # 0.1 10^3/uL (0.0-0.50); EOS % 2.2 % (0.0-3.0); HEMATOCRIT 39.7 % (42.0-52.0); HEMOGLOBIN 13.7 g/dl (13.5-17.5); LYMPH # 1.3 10^3/uL (1.5-4.5); LYMPH % 28.5 % (24.0-44.0); MEAN CORPUSCULAR HEMOGLOBIN 31.6 pg (27.0-33.0); MEAN CORPUSCULAR HGB CONC 34.5 g/dl (32.0-36.5); MEAN CORPUSCULAR VOLUME 91.7 fl (80.0-96.0); MONO # 0.3 10^3/uL (0.0-0.8); MONO % 6.7 % (0.0-5.0); NEUTROPHILS # 2.8 10^3/uL (1.8-7.7); NEUTROPHILS % 61.3 % (36.0-66.0); PLATELET COUNT, AUTOMATED 181 10^3/uL (150-450); RED BLOOD COUNT 4.33 10^6/uL (4.30-6.10); WHITE BLOOD COUNT 4.6 10^3/uL (4.0-10.0)
[2018-12-09 15:42] LABS: ALBUMIN 4.1 GM/DL (3.2-5.2); ALT/SGPT 24 U/L (12-78); BILIRUBIN,TOTAL 1.4 MG/DL (0.2-1.0); BLOOD UREA NITROGEN 14 MG/DL (7-18); CALCIUM LEVEL 9.1 MG/DL (8.5-10.1); CARBON DIOXIDE LEVEL 23 MEQ/L (21-32); CHLORIDE LEVEL 106 MEQ/L (98-107); CREATININE FOR GFR 0.87 MG/DL (0.70-1.30); GLOMERULAR FILTRATION RATE > 60.0 (>56); GLUCOSE, FASTING 211 MG/DL (70-100); POTASSIUM SERUM 3.9 MEQ/L (3.5-5.1); SODIUM LEVEL 139 MEQ/L (136-145); TOTAL PROTEIN 7.6 GM/DL (6.4-8.2)
[2018-12-09 15:54] LABS: HEMOGLOBIN A1c 7.2 %
[2018-12-09 16:01] LABS: MAU/CREAT RATIO 51.8 MCG/MG (0.0-30.0)
== END ==
LOC: M LAB 14:22
PROVIDERS: ATTEND Family Medicine
DX: E11.69 Type 2 diabetes mellitus with other specified complication (principal)

== ENCOUNTER 2018-12-13 12:40 | Outpatient (RCR) | payer OTHER | END 2018-12-14 | LOC: M PT 12:40 | PROVIDERS: ATTEND Family Medicine | DX: G62.9 Polyneuropathy, unspecified (principal); S82.892D Other fracture of left lower leg, subsequent encounter for closed fracture with routine healing; W18.30XD Fall on same level, unspecified, subsequent encounter; Y92.009 Unspecified place in unspecified non-institutional (private) residence as the place of occurrence of the external cause ==

== ENCOUNTER 2019-01-12 12:54 | Outpatient (RCR) | payer OTHER | END 2019-01-14 | LOC: M PT 12:54 | PROVIDERS: ATTEND Family Medicine | DX: G62.9 Polyneuropathy, unspecified (principal) ==

== ENCOUNTER → 2019-01-17 | Outpatient (REF) | payer OTHER | LOC: M LAB REF 16:42 | PROVIDERS: ATTEND Family Medicine | DX: R35.0 Frequency of micturition (principal); R39.15 Urgency of urination ==

== ENCOUNTER 2019-01-21 13:00 | Outpatient (RCR) | payer OTHER | END 2019-02-13 | LOC: M PT 13:00 | PROVIDERS: ATTEND Family Medicine | DX: M84.372 Stress fracture, left ankle (principal) ==

== ENCOUNTER → 2019-02-28 | Outpatient (CLI) | payer OTHER ==
[2019-02-28 14:22] LABS: HEMOGLOBIN A1c 7.8 %; RHEUMATOID FACTOR QUANT < 10.0 IU/ML (<15.0); TOTAL PROTEIN 7.7 GM/DL (6.4-8.2)
[2019-02-28 14:30] LABS: FOLATE 12.7 NG/ML; VITAMIN B12 LEVEL 380 PG/ML
[2019-03-01 12:45] LABS: ALBUMIN 4.67 GM/DL (3.29-5.55); ALBUMIN % 60.7 % (55.8-66.1); ALPHA-1-GLOBULIN % 3.7 % (2.9-4.9); ALPHA-1-GLOBULINS 0.28 GM/DL (0.17-0.41); ALPHA-2-GLOBULINS 0.86 GM/DL (0.42-0.99); ALPHA-2-GLOBULINS % 11.2 % (7.1-11.8); BETA-1-GLOBULINS 0.42 GM/DL (0.28-0.60); BETA-1-GLOBULINS % 5.5 % (4.7-7.2); BETA-2-GLOBULINS 0.41 GM/DL (0.19-0.55); BETA-2-GLOBULINS % 5.3 % (3.2-6.5); GAMMA GLOBULIN % 13.6 % (11.1-18.8); GAMMA GLOBULINS 1.05 GM/DL (0.65-1.58)
[2019-03-10 10:51] LABS: ANTINUCLEAR ANTIBODIES DIRECT Negative (Negative); CERULOPLASMIN 24.3 mg/dL (16.0-31.0); COPPER PLASMA 100 ug/dL (72-166); LEAD BLOOD ADULT 1 ug/dL (0-4); MERCURY LEVEL 1.5 ug/L (0.0-14.9); VITAMIN B6,PYRIDOXAL PHOSPHATE 7.6 ug/L (5.3-46.7); VITAMIN E(ALPHA TOCOPHEROL) 13.4 mg/L (7.0-25.1); VITAMIN E(GAMMA TOCOPHEROL) 1.9 mg/L (0.5-5.5)
== END ==
LOC: M LAB 13:00
PROVIDERS: ATTEND Psychiatry & Neurology Neurology
DX: G62.9 Polyneuropathy, unspecified (principal)

== ENCOUNTER → 2019-02-28 | Outpatient (CLI) | payer OTHER ==
[2019-02-28 13:51] LABS: BASO # 0.1 10^3/uL (0.0-0.2); BASO % 1.6 % (0.0-1.0); EOS # 0.1 10^3/uL (0.0-0.50); EOS % 3.1 % (0.0-3.0); HEMOGLOBIN 13.4 g/dl (13.5-17.5); LYMPH # 1.2 10^3/uL (1.5-4.5); LYMPH % 35.9 % (24.0-44.0); MEAN CORPUSCULAR HEMOGLOBIN 33.4 pg (27.0-33.0); MEAN CORPUSCULAR HGB CONC 34.4 g/dl (32.0-36.5); MEAN CORPUSCULAR VOLUME 97.3 fl (80.0-96.0); MONO # 0.3 10^3/uL (0.0-0.8); MONO % 8.8 % (0.0-5.0); NEUTROPHILS # 1.6 10^3/uL (1.8-7.7); NEUTROPHILS % 50.3 % (36.0-66.0); PLATELET COUNT, AUTOMATED 186 10^3/uL (150-450); RED BLOOD COUNT 4.01 10^6/uL (4.30-6.10); WHITE BLOOD COUNT 3.2 10^3/uL (4.0-10.0)
[2019-02-28 14:21] LABS: HEMOGLOBIN A1c 7.8 %
[2019-02-28 14:22] LABS: ALBUMIN 4.3 GM/DL (3.2-5.2); ALT/SGPT 63 U/L (12-78); BILIRUBIN,TOTAL 0.4 MG/DL (0.2-1.0); BLOOD UREA NITROGEN 8 MG/DL (7-18); CALCIUM LEVEL 9.2 MG/DL (8.5-10.1); CARBON DIOXIDE LEVEL 24 MEQ/L (21-32); CHLORIDE LEVEL 109 MEQ/L (98-107); CREATININE FOR GFR 0.92 MG/DL (0.70-1.30); GLOMERULAR FILTRATION RATE > 60.0 (>56); GLUCOSE, FASTING 161 MG/DL (70-100); POTASSIUM SERUM 4.2 MEQ/L (3.5-5.1); SODIUM LEVEL 141 MEQ/L (136-145); TOTAL PROTEIN 7.8 GM/DL (6.4-8.2)
[2019-02-28 14:38] LABS: MALB URINE SIEMENS 96.1 MG/L; MAU/CREAT RATIO 34.3 MCG/MG (0.0-30.0)
== END ==
LOC: M LAB 12:57
PROVIDERS: ATTEND Family Medicine
DX: E11.69 Type 2 diabetes mellitus with other specified complication (principal)

== ENCOUNTER → 2019-05-21 | Outpatient (CLI) | payer OTHER ==
[~2019-05-21] MED LIST changes: -LISI20TA PO; +LISI20TA19 PO
[2019-05-21 15:12] LABS: HEMOGLOBIN A1c 7.3 %
== END ==
LOC: M LAB 14:29
PROVIDERS: ATTEND Family Medicine
DX: E11.9 Type 2 diabetes mellitus without complications (principal)

== ENCOUNTER → 2019-08-25 | Outpatient (REF) | payer OTHER ==
[~2019-08-25] MED LIST changes: -GLIM4TAB PO; +GLIM4TAB5 PO
[2019-08-25 19:58] LABS: BASO # 0.1 10^3/uL (0.0-0.2); BASO % 1.3 % (0.0-1.0); EOS # 0.1 10^3/uL (0.0-0.5); EOS % 1.9 % (0.0-3.0); HEMOGLOBIN 14.7 g/dl (13.5-17.5); LYMPH % 20.9 % (24.0-44.0); MEAN CORPUSCULAR HEMOGLOBIN 33.6 pg (27.0-33.0); MEAN CORPUSCULAR HGB CONC 34.2 g/dl (32.0-36.5); MEAN CORPUSCULAR VOLUME 98.2 fl (80.0-96.0); MONO # 0.4 10^3/uL (0.0-0.8); MONO % 8.4 % (0.0-5.0); NEUTROPHILS # 3.1 10^3/uL (1.5-8.5); NEUTROPHILS % 67.3 % (36.0-66.0); PLATELET COUNT, AUTOMATED 199 10^3/uL (150-450); RED BLOOD COUNT 4.38 10^6/uL (4.30-6.10); WHITE BLOOD COUNT 4.6 10^3/uL (4.0-10.0)
[2019-08-25 20:11] LABS: ALBUMIN 4.2 GM/DL (3.2-5.2); ALT/SGPT 43 U/L (12-78); BILIRUBIN,TOTAL 0.9 MG/DL (0.2-1.0); BLOOD UREA NITROGEN 6 MG/DL (7-18); CALCIUM LEVEL 8.8 MG/DL (8.5-10.1); CARBON DIOXIDE LEVEL 23 MEQ/L (21-32); CHLORIDE LEVEL 107 MEQ/L (98-107); CHOLESTEROL LEVEL 267 MG/DL (<200); CHOLESTEROL RISK RATIO 2.567 (<5); FREE T4 0.94 NG/DL (0.76-1.46); GLOMERULAR FILTRATION RATE > 60.0 (>56); GLUCOSE, FASTING 157 MG/DL (70-100); HDL CHOLESTEROL 104 MG/DL (>40); LDL CHOLESTEROL 145 MG/DL (<100); NON-HDL-C 163 MG/DL; SODIUM LEVEL 142 MEQ/L (136-145); TOTAL PROTEIN 7.6 GM/DL (6.4-8.2); TRIGLYCERIDES LEVEL 90 MG/DL (<150)
[2019-08-25 20:40] LABS: HEMOGLOBIN A1c 6.4 %
[2019-08-26 16:22] LABS: FOLATE 6.5 NG/ML (>5.4); TOTAL 25(OH) VITAMIN D 40.6 NG/ML (30.0-100.0); VITAMIN B12 LEVEL 489 PG/ML (247-911)
== END ==
LOC: M LAB REF 13:18
PROVIDERS: ATTEND Physician Assistant
DX: F34.1 Dysthymic disorder (principal); M25.512 Pain in left shoulder; F10.19 Alcohol abuse with unspecified alcohol-induced disorder; E55.9 Vitamin D deficiency, unspecified; E11.42 Type 2 diabetes mellitus with diabetic polyneuropathy; E78.5 Hyperlipidemia, unspecified

== ENCOUNTER → 2019-09-07 | Outpatient (REF) | payer OTHER | LOC: M LAB REF 18:14 | PROVIDERS: ATTEND Physician Assistant | DX: N39.44 Nocturnal enuresis (principal) ==

== ENCOUNTER → 2019-10-03 | Outpatient (REF) | payer OTHER ==
[2019-10-03 16:59] LABS: ALT/SGPT 37 U/L (12-78); BILIRUBIN,TOTAL 3.5 MG/DL (0.2-1.0); BLOOD UREA NITROGEN 12 MG/DL (7-18); CALCIUM LEVEL 9.3 MG/DL (8.5-10.1); CARBON DIOXIDE LEVEL 29 MEQ/L (21-32); CHLORIDE LEVEL 96 MEQ/L (98-107); CREATININE FOR GFR 0.84 MG/DL (0.70-1.30); GLOMERULAR FILTRATION RATE > 60.0 (>56); GLUCOSE, FASTING 185 MG/DL (70-100); POTASSIUM SERUM 3.8 MEQ/L (3.5-5.1); SODIUM LEVEL 134 MEQ/L (136-145); TOTAL PROTEIN 7.4 GM/DL (6.4-8.2)
== END ==
LOC: M LAB REF 16:14
PROVIDERS: ATTEND Physician Assistant
DX: F10.19 Alcohol abuse with unspecified alcohol-induced disorder (principal)

== ENCOUNTER 2019-10-12 15:21 | Emergency (ER) | payer OTHER ==
[~2019-10-12] VITALS: Ht 182.9 cm; Wt 85.3 kg
[2019-10-12] MEDS ORDERED: GABA-843 PO (15:33)
[2019-10-12] MEDS ORDERED: GLIM2TAB4 PO (15:33)
[2019-10-12] MEDS ORDERED: CARB25TA9 PO (15:33)
[2019-10-12] MEDS ORDERED: PARO40TA2 PO (15:33)
[2019-10-12 16:23] LABS: BASO % 0.7 % (0.0-1.0); EOS # 0.1 10^3/uL (0.0-0.5); HEMOGLOBIN 13.7 g/dl (13.5-17.5); LYMPH # 0.7 10^3/uL (1.5-5.0); LYMPH % 17.7 % (24.0-44.0); MEAN CORPUSCULAR HEMOGLOBIN 33.5 pg (27.0-33.0); MEAN CORPUSCULAR HGB CONC 34.3 g/dl (32.0-36.5); MEAN CORPUSCULAR VOLUME 97.8 fl (80.0-96.0); MONO # 0.3 10^3/uL (0.0-0.8); NEUTROPHILS # 2.9 10^3/uL (1.5-8.5); NEUTROPHILS % 71.6 % (36.0-66.0); PLATELET COUNT, AUTOMATED 152 10^3/uL (150-450); RED BLOOD COUNT 4.09 10^6/uL (4.30-6.10)
[2019-10-12 17:30] VITALS: BP 150/78
--- NOTE | 2019-10-13 05:53 | ECGEPIP ---
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
== END 2019-10-12 17:45 | disposition left against medical advice (07) ==
LOC: M ED 15:21
DX: R55 Syncope and collapse (principal); Z53.21 Procedure and treatment not carried out due to patient leaving prior to being seen by health care provider; E11.40 Type 2 diabetes mellitus with diabetic neuropathy, unspecified; I10 Essential (primary) hypertension; E78.5 Hyperlipidemia, unspecified; I95.1 Orthostatic hypotension; J30.2 Other seasonal allergic rhinitis; Z85.6 Personal history of leukemia; Z79.899 Other long term (current) drug therapy; Z79.84 Long term (current) use of oral hypoglycemic drugs

== ENCOUNTER → 2020-01-24 | Outpatient (REF) | payer OTHER ==
[~2020-01-24] MED LIST changes: +CARB25TA9 PO; +GLIM2TAB4 PO; +PARO40TA2 PO
[2020-01-24 12:46] LABS: BASO # 0.1 10^3/uL (0.0-0.2); BASO % 1.3 % (0.0-1.0); EOS # 0.2 10^3/uL (0.0-0.5); EOS % 3.1 % (0.0-3.0); HEMATOCRIT 42.5 % (42.0-52.0); HEMOGLOBIN 14.5 g/dl (13.5-17.5); LYMPH # 1.6 10^3/uL (1.5-5.0); LYMPH % 32.4 % (24.0-44.0); MEAN CORPUSCULAR HEMOGLOBIN 34.5 pg (27.0-33.0); MEAN CORPUSCULAR HGB CONC 34.1 g/dl (32.0-36.5); MEAN CORPUSCULAR VOLUME 101.2 fl (80.0-96.0); MONO # 0.4 10^3/uL (0.0-0.8); NEUTROPHILS # 2.6 10^3/uL (1.5-8.5); PLATELET COUNT, AUTOMATED 190 10^3/uL (150-450); WHITE BLOOD COUNT 4.8 10^3/uL (4.0-10.0)
[2020-01-24 13:13] LABS: ALBUMIN 4.2 GM/DL (3.2-5.2); ALT/SGPT 56 U/L (12-78); BILIRUBIN,TOTAL 0.8 MG/DL (0.2-1.0); BLOOD UREA NITROGEN 6 MG/DL (7-18); CALCIUM LEVEL 8.9 MG/DL (8.5-10.1); CARBON DIOXIDE LEVEL 27 MEQ/L (21-32); CHLORIDE LEVEL 109 MEQ/L (98-107); CHOLESTEROL LEVEL 323 MG/DL (<200); CHOLESTEROL RISK RATIO 3.105 (<5); CREATININE FOR GFR 0.82 MG/DL (0.70-1.30); GLOMERULAR FILTRATION RATE > 60.0 (>56); GLUCOSE, FASTING 178 MG/DL (70-100); HDL CHOLESTEROL 104 MG/DL (>40); LDL CHOLESTEROL 186 MG/DL (<100); NON-HDL-C 219 MG/DL; POTASSIUM SERUM 3.8 MEQ/L (3.5-5.1); SODIUM LEVEL 145 MEQ/L (136-145); TRIGLYCERIDES LEVEL 165 MG/DL (<150)
[2020-01-24 13:18] LABS: TOTAL 25(OH) VITAMIN D 45.8 NG/ML (30.0-100.0)
[2020-01-24 13:36] LABS: HEMOGLOBIN A1c 6.4 %
== END ==
LOC: M LAB REF 12:14
PROVIDERS: ATTEND Physician Assistant
DX: E80.6 Other disorders of bilirubin metabolism (principal); F34.1 Dysthymic disorder; F10.19 Alcohol abuse with unspecified alcohol-induced disorder; E11.40 Type 2 diabetes mellitus with diabetic neuropathy, unspecified; E78.5 Hyperlipidemia, unspecified; E55.9 Vitamin D deficiency, unspecified

== ENCOUNTER → 2020-07-02 | Outpatient (REF) | payer OTHER ==
[~2020-07-02] MED LIST changes: +AMLO1TAB24 PO; -AMLO5TAB6 PO; -LISI20TA19 PO; +LISI20TA35 PO
[2020-07-02 17:16] LABS: HEMOGLOBIN A1c 6.2 %
[2020-07-02 17:37] LABS: CHOLESTEROL RISK RATIO 4.173 (<5); PROSTATIC SPECIFIC AG MONITOR 1.46 NG/ML (< 4.00); THYROID STIMULATING HORMONE 3.34 uIU/ML (0.358-3.740)
== END ==
LOC: M LAB REF 16:28
PROVIDERS: ATTEND Physician Assistant
DX: E11.40 Type 2 diabetes mellitus with diabetic neuropathy, unspecified (principal)

== ENCOUNTER → 2020-07-10 | Outpatient (REF) | payer OTHER ==
[2020-07-10 16:58] LABS: ALBUMIN 3.8 GM/DL (3.2-5.2); ALT/SGPT 29 U/L (12-78); BILIRUBIN,TOTAL 1.7 MG/DL (0.2-1.0); BLOOD UREA NITROGEN 9 MG/DL (7-18); CALCIUM LEVEL 9.1 MG/DL (8.5-10.1); CARBON DIOXIDE LEVEL 24 MEQ/L (21-32); CHLORIDE LEVEL 102 MEQ/L (98-107); CREATININE FOR GFR 0.87 MG/DL (0.70-1.30); GLOMERULAR FILTRATION RATE > 60.0 (>56); GLUCOSE, FASTING 166 MG/DL (70-100); POTASSIUM SERUM 3.7 MEQ/L (3.5-5.1); SODIUM LEVEL 138 MEQ/L (136-145); TOTAL PROTEIN 7.7 GM/DL (6.4-8.2)
== END ==
LOC: M LAB REF 16:17
PROVIDERS: ATTEND Physician Assistant
DX: E11.40 Type 2 diabetes mellitus with diabetic neuropathy, unspecified (principal)

== ENCOUNTER → 2020-10-16 | Outpatient (CLI) | payer OTHER ==
[~2020-10-16] MED LIST changes: +GABA-282 PO; -GABA-843 PO
--- NOTE | 2020-10-16 09:50 | REP ---
INDICATION: PANUVEITIS, RIGHT EYE PT HAVING LABS FIRST COMPARISON: 09/25/2018 TECHNIQUE: PA and lateral. FINDINGS: The mediastinum and cardiac silhouette are normal. The lung gandhi are clear and without acute consolidation, effusion, or pneumothorax. The skeletal structures are intact and normal. IMPRESSION: No acute cardiopulmonary process. <Electronically signed by Edilberto Armstrong > 10/16/20 [id number]
[2020-10-16 11:12] LABS: C REACTIVE PROTEIN QUANTITATIV < 0.30 MG/DL (0.00-0.30)
[2020-10-17 15:07] LABS: Lyme Disease IgG/IgM Antibodie <0.91 ISR (0.00-0.90); Lyme Disease IgM Ab Quantitati <0.80 index (0.00-0.79)
[2020-10-19 12:07] LABS: ANGIOTENSIN 1 CONVERTING ENZYM 6 U/L (14-82); CYTOMEGALOVIRUS IgG ANTIBODY <0.60 U/mL (0.00-0.59); CYTOMEGALOVIRUS IgM ANTIBODY <30.0 AU/mL (0.0-29.9); HERPES ZOSTER, VARICELLA IgG >4000 index (Immune >165); HERPES ZOSTER, VARICELLA IgM <0.91 index (0.00-0.90); HSV TYPE I IgM AB <1:10 titer (<1:10); HSV TYPE II IgG SPECIFIC <0.91 index (0.00-0.90); HSV TYPE II IgM ABY <1:10 titer (<1:10); IgG P18 AB Absent (.); IgG P23 AB Absent (.); IgG P28 AB Absent (.); IgG P30 AB Absent (.); IgG P39 AB Absent (.); IgG P41 AB Present (.); IgG P45 AB Absent (.); IgG P66 AB Absent (.); IgG P93 AB Absent (.); IgM P23 AB Absent (.); IgM P39 AB Absent (.); IgM P41 AB Absent (.); LYME IgG WB INTERPRETATION Negative (.); LYME IgM WB INTERPRETATION Negative (.); LYSOZYME 5.3 ug/mL (3.0-12.8); TOXOPLASMA IgG ABY <3.0 IU/mL (0.0-7.1)
== END ==
LOC: M LAB 09:08
PROVIDERS: ATTEND Ophthalmology Retina Specialist
DX: H44.111 Panuveitis, right eye (principal)

== ENCOUNTER 2021-02-15 15:16 | Emergency (ER) | payer OTHER ==
[~2021-02-15] VITALS: Ht 182.9 cm; Wt 86.4 kg
[2021-02-15 18:34] VITALS: BP 160/84
== END 2021-02-15 18:35 | disposition home or self-care (01) ==
LOC: M ED 15:16
DX: Z48.02 Encounter for removal of sutures (principal); E11.40 Type 2 diabetes mellitus with diabetic neuropathy, unspecified; I10 Essential (primary) hypertension; E78.5 Hyperlipidemia, unspecified; M48.00 Spinal stenosis, site unspecified; J30.2 Other seasonal allergic rhinitis; Z85.6 Personal history of leukemia; Z79.84 Long term (current) use of oral hypoglycemic drugs; Z79.899 Other long term (current) drug therapy

== ENCOUNTER → 2021-02-15 | Outpatient (CLI) | payer OTHER ==
[2021-02-15 15:11] LABS: BASO % 0.7 % (0.0-1.0); EOS # 0.1 10^3/uL (0.0-0.5); EOS % 2.2 % (0.0-3.0); HEMOGLOBIN 11.4 g/dl (13.5-17.5); LYMPH # 0.5 10^3/uL (1.5-5.0); LYMPH % 9.9 % (24.0-44.0); MEAN CORPUSCULAR HEMOGLOBIN 34.2 pg (27.0-33.0); MEAN CORPUSCULAR HGB CONC 33.5 g/dl (32.0-36.5); MEAN CORPUSCULAR VOLUME 102.1 fl (80.0-96.0); MONO # 0.5 10^3/uL (0.0-0.8); MONO % 9.2 % (2.0-8.0); NEUTROPHILS # 4.2 10^3/uL (1.5-8.5); NEUTROPHILS % 77.6 % (36.0-66.0); PLATELET COUNT, AUTOMATED 163 10^3/uL (150-450); RED BLOOD COUNT 3.33 10^6/uL (4.30-6.10); WHITE BLOOD COUNT 5.4 10^3/uL (4.0-10.0)
[2021-02-15 16:00] LABS: BLOOD UREA NITROGEN 8 MG/DL (7-18); CALCIUM LEVEL 8.7 MG/DL (8.8-10.2); CARBON DIOXIDE LEVEL 26 MEQ/L (21-32); CHLORIDE LEVEL 103 MEQ/L (98-107); CREATININE FOR GFR 0.77 MG/DL (0.70-1.30); GLOMERULAR FILTRATION RATE > 60.0 (>49); GLUCOSE, FASTING 170 MG/DL (70-100); MAGNESIUM LEVEL 1.4 MG/DL (1.8-2.4); POTASSIUM SERUM 3.3 MEQ/L (3.5-5.1); SODIUM LEVEL 137 MEQ/L (136-145)
== END ==
LOC: M LAB 14:42
PROVIDERS: ATTEND Nurse Practitioner Family
DX: D69.6 Thrombocytopenia, unspecified (principal); E87.5 Hyperkalemia; E83.42 Hypomagnesemia

== ENCOUNTER → 2021-03-18 | Outpatient (CLI) | payer OTHER | LOC: M RAD 15:36 | PROVIDERS: ATTEND Physician Assistant | DX: R22.2 Localized swelling, mass and lump, trunk (principal); M51.37 Other intervertebral disc degeneration, lumbosacral region; M25.78 Osteophyte, vertebrae ==

== ENCOUNTER → 2021-04-13 | Outpatient (CLI) | payer OTHER ==
[2021-04-13 12:26] LABS: HEMATOCRIT 37.4 % (42.0-52.0); HEMOGLOBIN 12.9 g/dl (13.5-17.5); MEAN CORPUSCULAR HEMOGLOBIN 33.9 pg (27.0-33.0); MEAN CORPUSCULAR HGB CONC 34.5 g/dl (32.0-36.5); MEAN CORPUSCULAR VOLUME 98.4 fl (80.0-96.0); PLATELET COUNT, AUTOMATED 120 10^3/uL (150-450); WHITE BLOOD COUNT 6.1 10^3/uL (4.0-10.0)
[2021-04-13 12:48] LABS: HEMOGLOBIN A1c 6.1 %
[2021-04-13 13:01] LABS: MALB URINE SIEMENS 91.1 MG/L; MAU/CREAT RATIO 35.5 MCG/MG (0.0-30.0)
[2021-04-14 02:24] LABS: ALBUMIN 3.6 GM/DL (3.2-5.2); ALT/SGPT 46 U/L (12-78); BILIRUBIN,TOTAL 2.9 MG/DL (0.2-1.0); BLOOD UREA NITROGEN 9 MG/DL (7-18); CALCIUM LEVEL 7.6 MG/DL (8.8-10.2); CARBON DIOXIDE LEVEL 26 MEQ/L (21-32); CHLORIDE LEVEL 99 MEQ/L (98-107); CHOLESTEROL LEVEL 250 MG/DL (<200); CHOLESTEROL RISK RATIO 3.246 (<5); CREATININE FOR GFR 0.77 MG/DL (0.70-1.30); GLOMERULAR FILTRATION RATE > 60.0 (>49); GLUCOSE, FASTING 111 MG/DL (70-100); HDL CHOLESTEROL 77 MG/DL (>40); LDL CHOLESTEROL 150 MG/DL (<100); NON-HDL-C 173 MG/DL; SODIUM LEVEL 139 MEQ/L (136-145); TOTAL PROTEIN 7.4 GM/DL (6.4-8.2); TRIGLYCERIDES LEVEL 115 MG/DL (<150)
[2021-04-14 07:36] LABS: POTASSIUM SERUM 2.4 MEQ/L (3.5-5.1)
[2021-04-15 09:58] LABS: TOTAL 25(OH) VITAMIN D 30.9 NG/ML (30.0-100.0)
== END ==
LOC: M LAB 11:04
PROVIDERS: ATTEND Physician Assistant
DX: E55.9 Vitamin D deficiency, unspecified (principal); E11.40 Type 2 diabetes mellitus with diabetic neuropathy, unspecified; I10 Essential (primary) hypertension

== ENCOUNTER → 2021-09-23 | Outpatient (CLI) | payer MEDICARE | LOC: M RAD 10:53 | PROVIDERS: ATTEND Physician Assistant | DX: E80.6 Other disorders of bilirubin metabolism (principal); K76.0 Fatty (change of) liver, not elsewhere classified ==

== ENCOUNTER → 2022-12-10 | Outpatient (REF) | payer MEDICARE, OTHER ==
[2022-12-10 17:00] LABS: ALBUMIN 4.5 G/DL (3.2-5.2); ALKALINE PHOSPHATASE 133 U/L (46-116); ALT/SGPT 42 U/L (7.0-40); AST/SGOT 67 U/L (<34); BILIRUBIN,TOTAL 2.5 MG/DL (0.3-1.2); BLOOD UREA NITROGEN 17 MG/DL (9-23); CALCIUM LEVEL 10.4 MG/DL (8.3-10.6); CARBON DIOXIDE LEVEL 23 MMOL/L (20-31); CHLORIDE LEVEL 98 MMOL/L (98-107); CHOLESTEROL LEVEL 294 MG/DL (<200); CHOLESTEROL RISK RATIO 3.34 (<5); CREATININE FOR GFR 0.69 MG/DL (0.70-1.30); GLOMERULAR FILTRATION RATE > 60.0 (>49); GLUCOSE, FASTING 146 MG/DL (74-106); LDL CHOLESTEROL 176.8 MG/DL (<100); POTASSIUM SERUM 4.5 MMOL/L (3.5-5.1); SODIUM LEVEL 135 MMOL/L (136-145); TOTAL PROTEIN 8.5 G/DL (5.7-8.2); TRIGLYCERIDES LEVEL 146 MG/DL (<150)
== END ==
LOC: M LAB REF 16:12
PROVIDERS: ATTEND Family Medicine Addiction Medicine
DX: E11.42 Type 2 diabetes mellitus with diabetic polyneuropathy (principal)

== ENCOUNTER 2023-04-01 06:42 | Inpatient (IN) | payer BC, OTHER ==
[~2023-04-01] VITALS: Ht 182.9 cm; Wt 85.1 kg
[2023-04-01] VITALS (8 sets, daily range): BP systolic 120–194; BP diastolic 58–98; TEMP 98.2–99.1; O2SAT 96–100
[~2023-04-01 06:42] MED LIST changes: +UNRESOLVED CLARIFICATION ENTRY XX SCH
[2023-04-01] MEDS ORDERED: ISOVUE-370 76% 100ML VIAL As Ordered ONE (07:24)
[2023-04-01 07:35] LABS: INR 1.14; PROTHROMBIN TIME 14.3 SECONDS (12.5-14.5)
[2023-04-01 07:36] LABS: PARTIAL THROMBOPLASTIN TIME 27.3 SECONDS (24.8-34.2)
[2023-04-01 07:39] LABS: BASO # 0.1 10^3/uL (0.0-0.2); BASO % 0.8 % (0.0-1.0); EOS % 0.1 % (0.0-3.0); HEMATOCRIT 38.5 % (42.0-52.0); HEMOGLOBIN 12.9 g/dl (13.5-17.5); LYMPH # 0.7 10^3/uL (1.5-5.0); LYMPH % 9.6 % (24.0-44.0); MEAN CORPUSCULAR HEMOGLOBIN 33.6 pg (27.0-33.0); MEAN CORPUSCULAR HGB CONC 33.5 g/dl (32.0-36.5); MEAN CORPUSCULAR VOLUME 100.3 fl (80.0-96.0); MONO # 0.5 10^3/uL (0.0-0.8); MONO % 6.4 % (2.0-8.0); NEUTROPHILS # 6.2 10^3/uL (1.5-8.5); NEUTROPHILS % 82.7 % (36.0-66.0); PLATELET COUNT, AUTOMATED 111 10^3/uL (150-450); RED BLOOD COUNT 3.84 10^6/uL (4.30-6.10); WHITE BLOOD COUNT 7.5 10^3/uL (4.0-10.0)
[2023-04-01 07:42] LABS: CPK CREATINE PHOSPHOKINASE 92 U/L (46-171)
[2023-04-01 07:49] LABS: BLOOD UREA NITROGEN 14 MG/DL (9-23); CALCIUM LEVEL 9.1 MG/DL (8.3-10.6); CARBON DIOXIDE LEVEL 18 MMOL/L (20-31); CHLORIDE LEVEL 99 MMOL/L (98-107); CK-MB VALUE MASS 1.2 NG/ML (<3.6); CREATININE FOR GFR 0.63 MG/DL (0.70-1.30); FREE T4 1.12 NG/DL (0.89-1.76); GLOMERULAR FILTRATION RATE > 60.0 (>49); GLUCOSE, FASTING 207 MG/DL (74-106); POTASSIUM SERUM 3.9 MMOL/L (3.5-5.1); SODIUM LEVEL 138 MMOL/L (136-145); THYROID STIMULATING HORMONE 3.525 uIU/ML (0.55-4.78)
[2023-04-01 08:18] LABS: RSV AMPLIFICATION NEGATIVE (NEGATIVE)
[2023-04-01 08:45] LABS: CK-MB VALUE MASS 1.4 NG/ML (<3.6)
[2023-04-01 08:46] LABS: MB/CK RELATIVE INDEX 1.55 (< OR =4)
[2023-04-01] MEDS ORDERED: MED REC IN PROGRESS XX SCH ×2 (08:50→09:30)
[2023-04-01] MEDS ORDERED: NS 500 ML IV ONE (08:55)
[2023-04-01] MEDS ORDERED: LISI40TA4 PO (08:58)
[2023-04-01] MEDS: LORazepam 2 MG TAB PO PRN (09:06)
[2023-04-01] MEDS: FOLIC ACID 1MG TAB PO SCH (09:07)
[2023-04-01] MEDS: MULTIVITAMINS/MINERALS THERAP 1 TAB PO SCH (09:07)
[2023-04-01] MEDS: THIAMINE 100 MG TAB PO SCH ×2 (09:07→20:19)
[2023-04-01] MEDS ORDERED: HOME MED LIST COMPLETE! XX SCH (09:30)
[2023-04-01] MEDS ORDERED: ACETAMINOPHEN TAB 650MG DOSE (2X325MG) PO PRN (10:20)
[2023-04-01] MEDS ORDERED: LABETALOL 100MG/20ML VIAL IV PRN (10:40)
[2023-04-01] MEDS ORDERED: GLUCAGON INJ 1MG VIAL SC PRN (10:45)
[2023-04-01] MEDS ORDERED: DEXTROSE 50% 50ML SYRINGE IV PRN (10:45)
[2023-04-01] MEDS ORDERED: GLUCOSE 4GM CHEW TABLET PO PRN (10:45)
[2023-04-01 11:29] LABS: ETHYL ALCOHOL (ETHANOL) < 0.003 % (0.000-0.010)
[2023-04-01 11:31] LABS: SALICYLATE LEVEL < 3.0 MG/DL (<30)
[2023-04-01 11:33] LABS: ACETAMINOPHEN LEVEL 2.3 UG/ML (10.0-20.0)
[2023-04-01] MEDS ORDERED: MULTIVITAMIN -ADULT INJECTION 10 ML, THIAMINE INJection 100 MG, FOLIC ACID 1 MG in NS 1... IV ONE (12:00)
[2023-04-01 12:19] LABS: HEMOGLOBIN A1c 6.6 % (4.0-6.0)
[2023-04-01] MEDS: lisinopriL 40MG TAB PO SCH (12:25)
[2023-04-01] MEDS: ENOXAPARIN 40MG/0.4ML SYRINGE (J1650 PER 10MG) SC SCH (12:25)
[2023-04-01] MEDS: INSULIN LISPRO (NovoLOG) PER UNIT SC SCH ×3 (12:26→20:20)
[2023-04-01] MEDS: OXAZEPAM 15MG CAP PO SCH ×2 (16:56→20:20)
[2023-04-01] MEDS ORDERED: zolPIDEM TARTRATE 5 MG TAB PO SCH (21:00)
[2023-04-02 03:55] VITALS: BP 155/80; TEMP 98.6; O2SAT 99
[2023-04-02 04:35] LABS: BASO % 0.5 % (0.0-1.0); EOS # 0.1 10^3/uL (0.0-0.5); EOS % 2.3 % (0.0-3.0); HEMATOCRIT 36.1 % (42.0-52.0); LYMPH # 1.1 10^3/uL (1.5-5.0); LYMPH % 27.1 % (24.0-44.0); MEAN CORPUSCULAR HEMOGLOBIN 33.3 pg (27.0-33.0); MEAN CORPUSCULAR HGB CONC 33.2 g/dl (32.0-36.5); MEAN CORPUSCULAR VOLUME 100.3 fl (80.0-96.0); MONO # 0.5 10^3/uL (0.0-0.8); MONO % 11.9 % (2.0-8.0); NEUTROPHILS # 2.3 10^3/uL (1.5-8.5); NEUTROPHILS % 57.9 % (36.0-66.0); WHITE BLOOD COUNT 3.9 10^3/uL (4.0-10.0)
[2023-04-02 04:43] LABS: ALBUMIN 3.5 G/DL (3.2-5.2); ALKALINE PHOSPHATASE 132 U/L (46-116); ALT/SGPT 59 U/L (7.0-40); AST/SGOT 209 U/L (<34); BILIRUBIN,TOTAL 2.4 MG/DL (0.3-1.2); BLOOD UREA NITROGEN 10 MG/DL (9-23); CALCIUM LEVEL 8.6 MG/DL (8.3-10.6); CARBON DIOXIDE LEVEL 24 MMOL/L (20-31); CHLORIDE LEVEL 104 MMOL/L (98-107); CHOLESTEROL LEVEL 260 MG/DL (<200); CHOLESTEROL RISK RATIO 3.29 (<5); CREATININE FOR GFR 0.59 MG/DL (0.70-1.30); GLOMERULAR FILTRATION RATE > 60.0 (>49); GLUCOSE, FASTING 129 MG/DL (74-106); HDL CHOLESTEROL 78.9 MG/DL (>40); LDL CHOLESTEROL 155.7 MG/DL (<100); MAGNESIUM LEVEL 1.4 MG/DL (1.8-2.4); NON-HDL-C 181.1 MG/DL; POTASSIUM SERUM 3.3 MMOL/L (3.5-5.1); SODIUM LEVEL 139 MMOL/L (136-145); TOTAL PROTEIN 6.6 G/DL (5.7-8.2); TRIGLYCERIDES LEVEL 127 MG/DL (<150)
[2023-04-02 05:57] LABS: PLATELET COUNT, AUTOMATED 61 10^3/uL (150-450)
[2023-04-02] MEDS: OXAZEPAM 15MG CAP PO SCH ×3 (06:15→21:36)
[2023-04-02 07:45] LABS: EOS # 0.1 10^3/uL (0.0-0.5); HEMATOCRIT 37.9 % (42.0-52.0); HEMOGLOBIN 12.8 g/dl (13.5-17.5); LYMPH % 24.7 % (24.0-44.0); MEAN CORPUSCULAR HEMOGLOBIN 33.5 pg (27.0-33.0); MEAN CORPUSCULAR HGB CONC 33.8 g/dl (32.0-36.5); MEAN CORPUSCULAR VOLUME 99.2 fl (80.0-96.0); MONO # 0.3 10^3/uL (0.0-0.8); MONO % 7.8 % (2.0-8.0); NEUTROPHILS # 2.6 10^3/uL (1.5-8.5); NEUTROPHILS % 64.3 % (36.0-66.0); RED BLOOD COUNT 3.82 10^6/uL (4.30-6.10); WHITE BLOOD COUNT 4.1 10^3/uL (4.0-10.0)
[2023-04-02] MEDS: INSULIN LISPRO (NovoLOG) PER UNIT SC SCH ×4 (07:51→20:35)
[2023-04-02] MEDS: MULTIVITAMINS/MINERALS THERAP 1 TAB PO SCH (07:52)
[2023-04-02] MEDS: MAG SULF 1GM/100ML (MAG RUN) 1 GM in IV 1 EA IV SCH ×4 (07:52→13:20)
[2023-04-02] MEDS: FOLIC ACID 1MG TAB PO SCH (07:52)
[2023-04-02] MEDS: lisinopriL 40MG TAB PO SCH (07:53)
[2023-04-02] MEDS: ENOXAPARIN 40MG/0.4ML SYRINGE (J1650 PER 10MG) SC SCH (07:54)
[2023-04-02] MEDS: THIAMINE 100 MG TAB PO SCH ×2 (07:55→20:36)
[2023-04-02 08:00] VITALS: BP 147/71; TEMP 98.5; O2SAT 100
[2023-04-02 08:23] LABS: PLATELET COUNT, AUTOMATED 68 10^3/uL (150-450)
[2023-04-02] MEDS ORDERED: POTASSIUM CHLORIDE 10% LIQ 20MEQ/15ML UDC PO ONE (09:00)
[2023-04-02 09:14] LABS: IRON (FE) 107 UG/DL (65-175); PERCENT SATURATION 41.5 % (19.7-50.0); TOTAL IRON BINDING CAPACITY 258 UG/DL (250-425)
[2023-04-02 09:17] LABS: FERRITIN 1067.1 NG/ML (10.5-307.3); VITAMIN B12 LEVEL 627 PG/ML (211-911)
[2023-04-02 09:18] LABS: FOLATE 22.9 NG/ML (>5.4)
[2023-04-02 12:00] VITALS: BP 141/71; TEMP 98.2; O2SAT 98
[2023-04-02 14:29] LABS: HEPATITIS B CORE ANTIBODY IGM NEGATIVE (NEGATIVE); HEPATITIS C VIRUS ABY INDEX 0.13 INDEX (<0.8)
[2023-04-02 16:00] VITALS: BP 154/85; TEMP 98.5; O2SAT 97
[2023-04-02] MEDS: LORazepam 2 MG TAB PO PRN ×2 (18:39→23:16)
[2023-04-02 19:48] VITALS: BP 129/62; TEMP 98.3; O2SAT 98
[2023-04-02 23:32] VITALS: BP 117/58; TEMP 98; O2SAT 98
[2023-04-03 03:23] VITALS: BP 132/74; TEMP 97.6; O2SAT 99
[2023-04-03 04:27] LABS: BASO % 0.8 % (0.0-1.0); EOS # 0.1 10^3/uL (0.0-0.5); EOS % 2.7 % (0.0-3.0); HEMATOCRIT 33.9 % (42.0-52.0); HEMOGLOBIN 11.3 g/dl (13.5-17.5); LYMPH # 0.7 10^3/uL (1.5-5.0); LYMPH % 17.3 % (24.0-44.0); MEAN CORPUSCULAR HEMOGLOBIN 33.1 pg (27.0-33.0); MEAN CORPUSCULAR HGB CONC 33.3 g/dl (32.0-36.5); MEAN CORPUSCULAR VOLUME 99.4 fl (80.0-96.0); MONO # 0.4 10^3/uL (0.0-0.8); MONO % 10.9 % (2.0-8.0); NEUTROPHILS # 2.6 10^3/uL (1.5-8.5); RED BLOOD COUNT 3.41 10^6/uL (4.30-6.10); WHITE BLOOD COUNT 3.8 10^3/uL (4.0-10.0)
[2023-04-03 04:28] LABS: PLATELET COUNT, AUTOMATED 59 10^3/uL (150-450)
[2023-04-03 04:41] LABS: ALBUMIN 3.2 G/DL (3.2-5.2); ALKALINE PHOSPHATASE 128 U/L (46-116); ALT/SGPT 79 U/L (7.0-40); AST/SGOT 229 U/L (<34); BILIRUBIN,TOTAL 1.8 MG/DL (0.3-1.2); BLOOD UREA NITROGEN 8 MG/DL (9-23); CALCIUM LEVEL 8.5 MG/DL (8.3-10.6); CARBON DIOXIDE LEVEL 24 MMOL/L (20-31); CHLORIDE LEVEL 104 MMOL/L (98-107); CREATININE FOR GFR 0.57 MG/DL (0.70-1.30); GLOMERULAR FILTRATION RATE > 60.0 (>49); GLUCOSE, FASTING 141 MG/DL (74-106); MAGNESIUM LEVEL 1.6 MG/DL (1.8-2.4); POTASSIUM SERUM 3.4 MMOL/L (3.5-5.1); SODIUM LEVEL 137 MMOL/L (136-145); TOTAL PROTEIN 6.2 G/DL (5.7-8.2)
[2023-04-03] MEDS: OXAZEPAM 15MG CAP PO SCH ×3 (06:02→20:48)
[2023-04-03 08:00] VITALS: BP 152/80; TEMP 97.7; O2SAT 99
[2023-04-03] MEDS: FOLIC ACID 1MG TAB PO SCH (08:17)
[2023-04-03] MEDS: THIAMINE 100 MG TAB PO SCH ×2 (08:17→20:49)
[2023-04-03] MEDS: MULTIVITAMINS/MINERALS THERAP 1 TAB PO SCH (08:17)
[2023-04-03] MEDS: lisinopriL 40MG TAB PO SCH (08:17)
[2023-04-03] MEDS: POTASSIUM CHLORIDE 10MEQ SR TABLET PO SCH (08:18)
[2023-04-03] MEDS: INSULIN LISPRO (NovoLOG) PER UNIT SC SCH ×4 (08:19→20:44)
[2023-04-03] MEDS: MAG SULF 1GM/100ML (MAG RUN) 1 GM in IV 1 EA IV SCH ×2 (08:26→09:30)
[2023-04-03 12:00] VITALS: BP 140/93; TEMP 97.2; O2SAT 98
[2023-04-03 12:31] LABS: HIV 1&2 SCREEN NEGATIVE (NEGATIVE)
[2023-04-03 16:00] VITALS: BP 160/76; TEMP 97.4; O2SAT 100
[2023-04-03 20:50] VITALS: BP 162/72; TEMP 97.7; O2SAT 95
[2023-04-04 04:30] VITALS: BP 144/67; TEMP 96.8; O2SAT 97
[2023-04-04] MEDS: OXAZEPAM 15MG CAP PO SCH (05:40)
[2023-04-04 06:26] LABS: BASO % 0.7 % (0.0-1.0); EOS # 0.1 10^3/uL (0.0-0.5); EOS % 3.2 % (0.0-3.0); HEMATOCRIT 35.9 % (42.0-52.0); LYMPH # 0.7 10^3/uL (1.5-5.0); LYMPH % 16.9 % (24.0-44.0); MEAN CORPUSCULAR HEMOGLOBIN 33.8 pg (27.0-33.0); MEAN CORPUSCULAR HGB CONC 33.4 g/dl (32.0-36.5); MEAN CORPUSCULAR VOLUME 101.1 fl (80.0-96.0); MONO # 0.4 10^3/uL (0.0-0.8); MONO % 8.8 % (2.0-8.0); NEUTROPHILS # 2.9 10^3/uL (1.5-8.5); NEUTROPHILS % 69.9 % (36.0-66.0); RED BLOOD COUNT 3.55 10^6/uL (4.30-6.10); WHITE BLOOD COUNT 4.1 10^3/uL (4.0-10.0)
[2023-04-04 06:29] LABS: PLATELET COUNT, AUTOMATED 86 10^3/uL (150-450)
[2023-04-04 06:51] LABS: ALBUMIN 3.4 G/DL (3.2-5.2); ALKALINE PHOSPHATASE 140 U/L (46-116); ALT/SGPT 87 U/L (7.0-40); AST/SGOT 162 U/L (<34); BILIRUBIN,TOTAL 1.5 MG/DL (0.3-1.2); BLOOD UREA NITROGEN 9 MG/DL (9-23); CALCIUM LEVEL 8.8 MG/DL (8.3-10.6); CARBON DIOXIDE LEVEL 24 MMOL/L (20-31); CHLORIDE LEVEL 104 MMOL/L (98-107); CREATININE FOR GFR 0.57 MG/DL (0.70-1.30); GLOMERULAR FILTRATION RATE > 60.0 (>49); GLUCOSE, FASTING 235 MG/DL (74-106); MAGNESIUM LEVEL 1.4 MG/DL (1.8-2.4); POTASSIUM SERUM 3.5 MMOL/L (3.5-5.1); SODIUM LEVEL 138 MMOL/L (136-145); TOTAL PROTEIN 6.7 G/DL (5.7-8.2)
[2023-04-04 08:13] VITALS: BP 138/64; TEMP 96.9; O2SAT 100
[2023-04-04] MEDS: MAG SULF 1GM/100ML (MAG RUN) 1 GM in IV 1 EA IV SCH ×4 (08:19→12:03)
[2023-04-04] MEDS: lisinopriL 40MG TAB PO SCH (08:26)
[2023-04-04] MEDS: POTASSIUM CHLORIDE 10MEQ SR TABLET PO SCH (08:26)
[2023-04-04] MEDS: FOLIC ACID 1MG TAB PO SCH (08:26)
[2023-04-04] MEDS: MULTIVITAMINS/MINERALS THERAP 1 TAB PO SCH (08:26)
[2023-04-04] MEDS: INSULIN LISPRO (NovoLOG) PER UNIT SC SCH ×4 (08:27→20:18)
[2023-04-04 11:43] VITALS: BP 167/78; TEMP 98; O2SAT 100
[2023-04-04 11:56] VITALS: BP 166/88
[2023-04-04] MEDS: amLODIPine 5 MG TAB PO SCH (12:46)
[2023-04-04 15:18] VITALS: BP 138/72
[2023-04-04] MEDS ORDERED: OXAZEPAM 15MG CAP PO ONE (17:00)
[2023-04-04] MEDS: MAGNESIUM OXIDE 400MG TAB (MAG-OX) PO SCH (20:19)
[2023-04-04 20:22] VITALS: BP 135/78; TEMP 98.3; O2SAT 99
[2023-04-05 04:25] VITALS: BP 150/72; TEMP 98.3; O2SAT 100
[2023-04-05 06:55] LABS: BASO % 0.6 % (0.0-1.0); EOS # 0.1 10^3/uL (0.0-0.5); EOS % 2.1 % (0.0-3.0); HEMATOCRIT 34.6 % (42.0-52.0); HEMOGLOBIN 11.7 g/dl (13.5-17.5); LYMPH # 0.8 10^3/uL (1.5-5.0); LYMPH % 16.5 % (24.0-44.0); MEAN CORPUSCULAR HEMOGLOBIN 34.1 pg (27.0-33.0); MEAN CORPUSCULAR HGB CONC 33.8 g/dl (32.0-36.5); MEAN CORPUSCULAR VOLUME 100.9 fl (80.0-96.0); MONO # 0.6 10^3/uL (0.0-0.8); MONO % 12.2 % (2.0-8.0); NEUTROPHILS # 3.2 10^3/uL (1.5-8.5); NEUTROPHILS % 68.4 % (36.0-66.0); RED BLOOD COUNT 3.43 10^6/uL (4.30-6.10); WHITE BLOOD COUNT 4.7 10^3/uL (4.0-10.0)
[2023-04-05 06:58] LABS: PLATELET COUNT, AUTOMATED 97 10^3/uL (150-450)
[2023-04-05 07:26] LABS: ALBUMIN 3.3 G/DL (3.2-5.2); ALKALINE PHOSPHATASE 130 U/L (46-116); ALT/SGPT 79 U/L (7.0-40); AST/SGOT 117 U/L (<34); BILIRUBIN,TOTAL 1.2 MG/DL (0.3-1.2); BLOOD UREA NITROGEN 9 MG/DL (9-23); CALCIUM LEVEL 9.2 MG/DL (8.3-10.6); CARBON DIOXIDE LEVEL 25 MMOL/L (20-31); CHLORIDE LEVEL 104 MMOL/L (98-107); CREATININE FOR GFR 0.59 MG/DL (0.70-1.30); GLOMERULAR FILTRATION RATE > 60.0 (>49); GLUCOSE, FASTING 177 MG/DL (74-106); MAGNESIUM LEVEL 1.7 MG/DL (1.8-2.4); POTASSIUM SERUM 3.6 MMOL/L (3.5-5.1); SODIUM LEVEL 137 MMOL/L (136-145); TOTAL PROTEIN 6.5 G/DL (5.7-8.2)
[2023-04-05 08:14] VITALS: BP 139/78; TEMP 97.8; O2SAT 99
[2023-04-05] MEDS: INSULIN LISPRO (NovoLOG) PER UNIT SC SCH ×3 (08:25→17:30)
[2023-04-05] MEDS: POTASSIUM CHLORIDE 10MEQ SR TABLET PO SCH (08:25)
[2023-04-05 08:26] VITALS: BP 139/78
[2023-04-05] MEDS: lisinopriL 40MG TAB PO SCH (08:26)
[2023-04-05] MEDS: MAGNESIUM OXIDE 400MG TAB (MAG-OX) PO SCH (08:26)
[2023-04-05] MEDS: MULTIVITAMINS/MINERALS THERAP 1 TAB PO SCH (08:26)
[2023-04-05] MEDS: amLODIPine 5 MG TAB PO SCH (08:26)
[2023-04-05] MEDS ORDERED: OXAZEPAM 15MG CAP PO ONE (09:00)
== END 2023-04-05 18:16 | disposition left against medical advice (07) | DRG 74 ==
LOC: M ED 06:42 → M ED INP 06:43 → OBSVTOIN 14:47 → M PCU 17:15
PROVIDERS: ADMIT Internal Medicine; ATTEND Internal Medicine
DX: E11.42 Type 2 diabetes mellitus with diabetic polyneuropathy (principal); F10.239 Alcohol dependence with withdrawal, unspecified; I16.9 Hypertensive crisis, unspecified; D61.818 Other pancytopenia; E46 Unspecified protein-calorie malnutrition; G62.1 Alcoholic polyneuropathy; I10 Essential (primary) hypertension; E78.5 Hyperlipidemia, unspecified; G47.00 Insomnia, unspecified; E83.42 Hypomagnesemia; F10.10 Alcohol abuse, uncomplicated; D64.9 Anemia, unspecified; E87.6 Hypokalemia; R74.01 Elevation of levels of liver transaminase levels; K76.0 Fatty (change of) liver, not elsewhere classified; Z79.899 Other long term (current) drug therapy; Z20.822 Contact with and (suspected) exposure to COVID-19; Z90.49 Acquired absence of other specified parts of digestive tract

== ENCOUNTER 2023-08-10 19:17 | Emergency (ER) | payer MEDICARE, OTHER ==
[~2023-08-10] VITALS: Ht 182.9 cm; Wt 72.0 kg
[~2023-08-10 19:17] MED LIST changes: +LISI40TA4 PO; -UNRESOLVED CLARIFICATION ENTRY XX SCH
[2023-08-10] MEDS ORDERED: MIDAZOLAM INJ 2MG/2ML VIAL IM STA (20:07)
[2023-08-10] MEDS ORDERED: MIDAZOLAM INJ 2MG/2ML VIAL As Ordered ONE (20:10)
[2023-08-10] MEDS ORDERED: HALOPERIDOL 5MG/ML 1ML VIAL IM STA (20:26)
[2023-08-10] MEDS ORDERED: LORazepam 2 MG/ML 1ML VIAL IM STA (21:09)
[2023-08-10 21:57] VITALS: O2SAT 99
[2023-08-10 22:08] LABS: ETHYL ALCOHOL (ETHANOL) 0.266 % (0.000-0.010)
[2023-08-11 08:14] VITALS: BP 142/84; TEMP 98.2; O2SAT 98
== END 2023-08-11 08:20 | disposition home or self-care (01) ==
LOC: EDBD 19:17 → M ED 19:17
DX: F10.129 Alcohol abuse with intoxication, unspecified (principal); W01.0XXA Fall on same level from slipping, tripping and stumbling without subsequent striking against object, initial encounter; I10 Essential (primary) hypertension; E11.9 Type 2 diabetes mellitus without complications; F51.01 Primary insomnia; F32.A Depression, unspecified; F10.10 Alcohol abuse, uncomplicated; F17.200 Nicotine dependence, unspecified, uncomplicated; Z79.84 Long term (current) use of oral hypoglycemic drugs; Z91.048 Other nonmedicinal substance allergy status; Z79.811 Long term (current) use of aromatase inhibitors; Z79.899 Other long term (current) drug therapy
CPT/HCPCS: 82077; 82550; 96372; 99284; J1630; J2060; J2250

== ENCOUNTER 2023-09-24 05:25 | Observation (INO) | payer OTHER ==
[~2023-09-24] VITALS: Ht 185.4 cm; Wt 80.2 kg
[2023-09-24 06:46] LABS: EOS # 0.1 10^3/uL (0.0-0.5); EOS % 1.9 % (0.0-3.0); HEMATOCRIT 35.8 % (42.0-52.0); HEMOGLOBIN 12.4 g/dl (13.5-17.5); LYMPH # 1.3 10^3/uL (1.5-5.0); LYMPH % 30.1 % (24.0-44.0); MEAN CORPUSCULAR HGB CONC 34.6 g/dl (32.0-36.5); MEAN CORPUSCULAR VOLUME 92.3 fl (80.0-96.0); MONO # 0.4 10^3/uL (0.0-0.8); MONO % 8.6 % (2.0-8.0); NEUTROPHILS # 2.4 10^3/uL (1.5-8.5); NEUTROPHILS % 58.2 % (36.0-66.0); PLATELET COUNT, AUTOMATED 110 10^3/uL (150-450); RED BLOOD COUNT 3.88 10^6/uL (4.30-6.10); WHITE BLOOD COUNT 4.2 10^3/uL (4.0-10.0)
[2023-09-24 07:10] LABS: ETHYL ALCOHOL (ETHANOL) < 0.003 % (0.000-0.010)
[2023-09-24 07:15] LABS: ALBUMIN 3.5 G/DL (3.2-5.2); ALKALINE PHOSPHATASE 132 U/L (46-116); ALT/SGPT 27 U/L (7.0-40); AST/SGOT 61 U/L (<34); BILIRUBIN,DIRECT 0.5 MG/DL (<0.4); BILIRUBIN,TOTAL 1.6 MG/DL (0.3-1.2); LIPASE 51 U/L (12-53); TOTAL PROTEIN 7.1 G/DL (5.7-8.2)
[2023-09-24 11:16] LABS: APPEARANCE, URINE CLEAR (CLEAR); BACTERIA, URINE AUTO NEGATIVE (NEGATIVE); BILIRUBIN, URINE AUTO NEGATIVE (NEGATIVE); BLOOD, URINE BLOOD NEGATIVE (NEGATIVE); COLOR, URINE YELLOW (YELLOW); GLUCOSE, URINE (UA) AUTO NEGATIVE (NEGATIVE); KETONE, URINE AUTO TRACE mg/dL (NEGATIVE); LEUKOCYTE ESTERASE, URINE AUTO NEGATIVE (NEGATIVE); MUCUS, URINE SMALL (NEGATIVE); NITRITE, URINE AUTO NEGATIVE (NEGATIVE); PROTEIN, URINE AUTO 1+ mg/dL (NEGATIVE); RBC, URINE AUTO 1 /HPF (0-3); SPECIFIC GRAVITY URINE AUTO 1.018 (1.002-1.035); SQUAMOUS EPITHELIAL CELL UR AU 0 /HPF (0-6); WBC, URINE AUTO 1 /HPF (0-3)
[2023-09-24] MEDS ORDERED: MOM 30ML SUSPENSION UDC PO PRN (13:45)
[2023-09-24] MEDS: DOCUSATE SODIUM 100MG CAPSULE PO SCH (14:05)
[2023-09-24] MEDS ORDERED: METO25TA4 PO (14:44)
[2023-09-24] MEDS ORDERED: HOME MED LIST COMPLETE! XX SCH (14:50)
[2023-09-24] MEDS: ENOXAPARIN 40MG/0.4ML SYRINGE (J1650 PER 10MG) SC SCH (15:20)
[2023-09-24 21:42] VITALS: BP 154/82; TEMP 98.2; O2SAT 100
[2023-09-24] MEDS: METOPROLOL TART 25 MG TABLET PO SCH (22:29)
[2023-09-24 22:30] VITALS: BP 154/82; TEMP 98.2; O2SAT 100
[2023-09-25] MEDS: zolPIDEM TARTRATE 5 MG TAB PO ONE (00:14)
[2023-09-25] MEDS: ACETAMINOPHEN TAB 650MG DOSE (2X325MG) PO PRN (05:21)
[2023-09-25 06:00] VITALS: BP 130/72; TEMP 98.4; O2SAT 98
[2023-09-25 08:40] VITALS: BP 120/69
[2023-09-25] MEDS: lisinopriL 40MG TAB PO SCH (08:40)
[2023-09-25] MEDS ORDERED: amLODIPine 5 MG TAB PO SCH (09:00)
[2023-09-25] MEDS: INFLUENZA QUADRIVALENT PF VACCINE 0.5ML SYRINGE IM.IMMUN ONE (10:27)
== END 2023-09-25 11:27 | disposition home or self-care (01) ==
LOC: M ED 05:25 → M ED INP 13:43 → M MSPAV 21:42
PROVIDERS: ADMIT Student in an Organized Health Care Education/Training Program; ATTEND Student in an Organized Health Care Education/Training Program
DX: R26.2 Difficulty in walking, not elsewhere classified (principal); R53.1 Weakness; Z91.148 Patient's other noncompliance with medication regimen for other reason; R74.01 Elevation of levels of liver transaminase levels; F10.10 Alcohol abuse, uncomplicated; I10 Essential (primary) hypertension; G62.9 Polyneuropathy, unspecified; E11.9 Type 2 diabetes mellitus without complications; E78.5 Hyperlipidemia, unspecified; Z79.899 Other long term (current) drug therapy; J30.2 Other seasonal allergic rhinitis
CPT/HCPCS: 51701; 71045; 80047; 80076; 81001; 82077; 83690; 85025; 87635; 90686; 93005; 96372; 97116; 97161; 97165; 97530; 99285; G0008; G0378; J1650

== ENCOUNTER 2024-01-04 20:47 | Inpatient (IN) | payer OTHER ==
[~2024-01-04] VITALS: Ht 182.9 cm; Wt 80.9 kg
[~2024-01-04 20:47] MED LIST changes: +METO25TA4 PO
[2024-01-05 02:00] LABS: BASO % 0.4 % (0.0-1.0); HEMATOCRIT 36.3 % (42.0-52.0); HEMOGLOBIN 12.8 g/dl (13.5-17.5); LYMPH # 0.6 10^3/uL (1.5-5.0); LYMPH % 7.8 % (24.0-44.0); MEAN CORPUSCULAR HEMOGLOBIN 33.6 pg (27.0-33.0); MEAN CORPUSCULAR HGB CONC 35.3 g/dl (32.0-36.5); MEAN CORPUSCULAR VOLUME 95.3 fl (80.0-96.0); MONO # 0.4 10^3/uL (0.0-0.8); MONO % 5.2 % (2.0-8.0); NEUTROPHILS # 6.5 10^3/uL (1.5-8.5); NEUTROPHILS % 86.1 % (36.0-66.0); RED BLOOD COUNT 3.81 10^6/uL (4.30-6.10); WHITE BLOOD COUNT 7.5 10^3/uL (4.0-10.0)
[2024-01-05 02:17] LABS: LIPASE 41 U/L (12-53)
[2024-01-05 02:19] LABS: ALBUMIN 3.8 G/DL (3.2-5.2); ALKALINE PHOSPHATASE 143 U/L (46-116); ALT/SGPT 54 U/L (7.0-40); AST/SGOT 211 U/L (<34); BILIRUBIN,DIRECT 2.5 MG/DL (<0.4); BILIRUBIN,TOTAL 5.5 MG/DL (0.3-1.2); BLOOD UREA NITROGEN 12 MG/DL (9-23); CALCIUM LEVEL 9.2 MG/DL (8.3-10.6); CARBON DIOXIDE LEVEL 25 MMOL/L (20-31); CHLORIDE LEVEL 102 MMOL/L (98-107); CREATININE FOR GFR 0.59 MG/DL (0.70-1.30); GLOMERULAR FILTRATION RATE > 60.0 (>49); GLUCOSE, FASTING 143 MG/DL (74-106); POTASSIUM SERUM 3.5 MMOL/L (3.5-5.1); SODIUM LEVEL 139 MMOL/L (136-145); TOTAL PROTEIN 7.6 G/DL (5.7-8.2)
[2024-01-05 02:26] LABS: PLATELET COUNT, AUTOMATED 55 10^3/uL (150-450)
[2024-01-05] MEDS: KETOROLAC 30 MG/ML 1ML VIAL IV ONE (03:14)
[2024-01-05] MEDS: NS 1,000 ML IV ONE ×2 (03:15→17:26)
[2024-01-05 03:36] LABS: ETHYL ALCOHOL (ETHANOL) 0.003 % (0.000-0.010)
[2024-01-05 03:46] LABS: INR 1.11; PARTIAL THROMBOPLASTIN TIME 27.9 SECONDS (24.8-34.2); PROTHROMBIN TIME 13.9 SECONDS (12.5-14.5)
[2024-01-05] MEDS: GABAPENTIN 300 MG CAP PO ONE (05:29)
[2024-01-05] MEDS ORDERED: FOLI1TAB11 PO (08:19)
[2024-01-05] MEDS ORDERED: TAB-TAB3 PO (08:19)
[2024-01-05] MEDS ORDERED: MAGN400T2 PO (08:19)
[2024-01-05] MEDS ORDERED: EPIP0.3I2 IM (08:19)
[2024-01-05] MEDS ORDERED: HOME MED LIST COMPLETE! XX SCH (08:20)
[2024-01-05] MEDS ORDERED: LORazepam 2 MG TAB PO PRN (08:50)
[2024-01-05] MEDS: MULTIVITAMINS/MINERALS THERAP 1 TAB PO SCH (09:19)
[2024-01-05] MEDS: FOLIC ACID 1MG TAB PO SCH (09:19)
[2024-01-05] MEDS: THIAMINE 100 MG TAB PO SCH ×2 (09:19→20:32)
[2024-01-05] MEDS: ACETAMINOPHEN TAB 650MG DOSE (2X325MG) PO ONE (11:00)
[2024-01-05 15:16] LABS: MAGNESIUM LEVEL 1.3 MG/DL (1.8-2.4)
[2024-01-05] MEDS: GABAPENTIN 300 MG CAP PO SCH (16:09)
[2024-01-05 16:25] VITALS: BP 163/83; TEMP 98.4; O2SAT 99
[2024-01-05] MEDS: MAG SULF 1GM/100ML (MAG RUN) 1 GM in IV 1 EA IV SCH (16:30)
[2024-01-05 16:38] VITALS: BP 163/83
[2024-01-05 20:00] VITALS: BP 144/79; TEMP 98; O2SAT 94
[2024-01-05] MEDS: MAGNESIUM GLUCONATE 500 MG TAB PO SCH (20:32)
[2024-01-05] MEDS: traMADol 50 MG TAB PO PRN (20:32)
[2024-01-05] MEDS: METOPROLOL TART 25 MG TABLET PO SCH (20:34)
[2024-01-05 22:31] VITALS: BP 148/80
[2024-01-06] VITALS (12 sets, daily range): BP systolic 97–150; BP diastolic 51–84; TEMP 97.2–98.6; O2SAT 93–100
[2024-01-06] MEDS: LORazepam 2 MG TAB PO PRN (03:25)
[2024-01-06 06:49] LABS: BASO % 0.3 % (0.0-1.0); EOS # 0.1 10^3/uL (0.0-0.5); EOS % 2.7 % (0.0-3.0); HEMATOCRIT 31.1 % (42.0-52.0); HEMOGLOBIN 10.9 g/dl (13.5-17.5); LYMPH # 0.9 10^3/uL (1.5-5.0); LYMPH % 25.5 % (24.0-44.0); MEAN CORPUSCULAR HEMOGLOBIN 33.4 pg (27.0-33.0); MEAN CORPUSCULAR VOLUME 95.4 fl (80.0-96.0); MONO # 0.2 10^3/uL (0.0-0.8); MONO % 4.6 % (2.0-8.0); NEUTROPHILS # 2.5 10^3/uL (1.5-8.5); NEUTROPHILS % 66.6 % (36.0-66.0); RED BLOOD COUNT 3.26 10^6/uL (4.30-6.10); WHITE BLOOD COUNT 3.7 10^3/uL (4.0-10.0)
[2024-01-06 06:52] LABS: PLATELET COUNT, AUTOMATED 42 10^3/uL (150-450)
[2024-01-06 07:28] LABS: ALKALINE PHOSPHATASE 107 U/L (46-116); ALT/SGPT 38 U/L (7.0-40); AST/SGOT 105 U/L (<34); BILIRUBIN,TOTAL 2.3 MG/DL (0.3-1.2); BLOOD UREA NITROGEN 9 MG/DL (9-23); CARBON DIOXIDE LEVEL 27 MMOL/L (20-31); CHLORIDE LEVEL 105 MMOL/L (98-107); CREATININE FOR GFR 0.59 MG/DL (0.70-1.30); GLOMERULAR FILTRATION RATE > 60.0 (>49); GLUCOSE, FASTING 122 MG/DL (74-106); POTASSIUM SERUM 2.8 MMOL/L (3.5-5.1); SODIUM LEVEL 139 MMOL/L (136-145); TOTAL PROTEIN 5.9 G/DL (5.7-8.2)
[2024-01-06] MEDS: POTASSIUM CHLORIDE 10MEQ SR TABLET PO SCH (09:24)
[2024-01-06] MEDS: MULTIVITAMINS/MINERALS THERAP 1 TAB PO SCH (09:25)
[2024-01-06] MEDS: FOLIC ACID 1MG TAB PO SCH (09:25)
[2024-01-06] MEDS: POTASSIUM CHLORIDE 10MEQ SR TABLET PO ONE (11:59)
[2024-01-06] MEDS: NS 500 ML IV ONE (13:05)
[2024-01-07 05:39] VITALS: BP 132/78
[2024-01-07 05:46] LABS: BASO % 0.6 % (0.0-1.0); EOS # 0.1 10^3/uL (0.0-0.5); EOS % 3.3 % (0.0-3.0); HEMATOCRIT 35.5 % (42.0-52.0); HEMOGLOBIN 12.1 g/dl (13.5-17.5); LYMPH % 27.9 % (24.0-44.0); MEAN CORPUSCULAR HEMOGLOBIN 33.2 pg (27.0-33.0); MEAN CORPUSCULAR HGB CONC 34.1 g/dl (32.0-36.5); MEAN CORPUSCULAR VOLUME 97.5 fl (80.0-96.0); MONO # 0.3 10^3/uL (0.0-0.8); NEUTROPHILS # 2.2 10^3/uL (1.5-8.5); NEUTROPHILS % 60.6 % (36.0-66.0); RED BLOOD COUNT 3.64 10^6/uL (4.30-6.10); WHITE BLOOD COUNT 3.6 10^3/uL (4.0-10.0)
[2024-01-07 05:47] LABS: PLATELET COUNT, AUTOMATED 44 10^3/uL (150-450)
[2024-01-07 05:48] VITALS: BP 130/61; TEMP 97.9; O2SAT 100
[2024-01-07 06:22] VITALS: BP 130/61
[2024-01-07 06:22] LABS: ALKALINE PHOSPHATASE 115 U/L (46-116); ALT/SGPT 41 U/L (7.0-40); AST/SGOT 99 U/L (<34); BILIRUBIN,TOTAL 1.5 MG/DL (0.3-1.2); BLOOD UREA NITROGEN 10 MG/DL (9-23); CALCIUM LEVEL 8.2 MG/DL (8.3-10.6); CARBON DIOXIDE LEVEL 26 MMOL/L (20-31); CHLORIDE LEVEL 107 MMOL/L (98-107); CREATININE FOR GFR 0.53 MG/DL (0.70-1.30); GLOMERULAR FILTRATION RATE > 60.0 (>49); GLUCOSE, FASTING 133 MG/DL (74-106); SODIUM LEVEL 141 MMOL/L (136-145); TOTAL PROTEIN 6.2 G/DL (5.7-8.2)
[2024-01-07 09:00] LABS: MAGNESIUM LEVEL 1.4 MG/DL (1.8-2.4)
[2024-01-07 14:00] VITALS: BP 158/86; TEMP 98.4; O2SAT 98
[2024-01-07 20:04] VITALS: BP 159/94; TEMP 97.9; O2SAT 100
[2024-01-07 21:00] VITALS: BP 159/94
[2024-01-08 05:36] VITALS: BP 160/59; TEMP 97.7; O2SAT 98
[2024-01-08 06:00] VITALS: BP 160/59
[2024-01-08 06:05] LABS: BASO % 0.8 % (0.0-1.0); EOS # 0.1 10^3/uL (0.0-0.5); EOS % 3.1 % (0.0-3.0); HEMATOCRIT 36.5 % (42.0-52.0); LYMPH # 1.2 10^3/uL (1.5-5.0); LYMPH % 30.1 % (24.0-44.0); MEAN CORPUSCULAR HEMOGLOBIN 32.5 pg (27.0-33.0); MEAN CORPUSCULAR HGB CONC 32.9 g/dl (32.0-36.5); MEAN CORPUSCULAR VOLUME 98.9 fl (80.0-96.0); MONO # 0.3 10^3/uL (0.0-0.8); MONO % 7.2 % (2.0-8.0); NEUTROPHILS # 2.3 10^3/uL (1.5-8.5); NEUTROPHILS % 58.8 % (36.0-66.0); RED BLOOD COUNT 3.69 10^6/uL (4.30-6.10); WHITE BLOOD COUNT 3.9 10^3/uL (4.0-10.0)
[2024-01-08 06:07] LABS: PLATELET COUNT, AUTOMATED 72 10^3/uL (150-450)
[2024-01-08 06:27] LABS: ALBUMIN 3.1 G/DL (3.2-5.2); ALKALINE PHOSPHATASE 118 U/L (46-116); ALT/SGPT 50 U/L (7.0-40); AST/SGOT 96 U/L (<34); BILIRUBIN,TOTAL 1.3 MG/DL (0.3-1.2); BLOOD UREA NITROGEN 10 MG/DL (9-23); CALCIUM LEVEL 9.2 MG/DL (8.3-10.6); CARBON DIOXIDE LEVEL 24 MMOL/L (20-31); CHLORIDE LEVEL 106 MMOL/L (98-107); CREATININE FOR GFR 0.53 MG/DL (0.70-1.30); GLOMERULAR FILTRATION RATE > 60.0 (>49); GLUCOSE, FASTING 185 MG/DL (74-106); POTASSIUM SERUM 3.3 MMOL/L (3.5-5.1); SODIUM LEVEL 137 MMOL/L (136-145); TOTAL PROTEIN 6.3 G/DL (5.7-8.2)
[2024-01-08 08:30] VITALS: BP 110/69
[2024-01-08] MEDS ORDERED: LISI20TA33 PO (12:46)
[2024-01-08] MEDS ORDERED: POTA-136 PO (12:46)
[2024-01-08] MEDS ORDERED: GABA-282 PO (12:46)
[2024-01-08 14:00] VITALS: BP 140/71; TEMP 98.1; O2SAT 100
== END 2024-01-08 18:00 | disposition home health service (06) | DRG 74 ==
LOC: M ED 20:47 → M ED INP 01-05 14:50 → M MSPAV 01-05 16:19 → OBSVTOIN 01-06 14:30
PROVIDERS: ADMIT Internal Medicine Nephrology; ATTEND Internal Medicine Nephrology
DX: E11.42 Type 2 diabetes mellitus with diabetic polyneuropathy (principal); E87.20 Acidosis, unspecified; F10.239 Alcohol dependence with withdrawal, unspecified; I10 Essential (primary) hypertension; R29.6 Repeated falls; R26.89 Other abnormalities of gait and mobility; K70.10 Alcoholic hepatitis without ascites; E83.42 Hypomagnesemia; E78.5 Hyperlipidemia, unspecified; D69.6 Thrombocytopenia, unspecified; G47.00 Insomnia, unspecified; K74.60 Unspecified cirrhosis of liver; G62.1 Alcoholic polyneuropathy; M54.50 Low back pain, unspecified; G31.2 Degeneration of nervous system due to alcohol; F10.26 Alcohol dependence with alcohol-induced persisting amnestic disorder; Z90.49 Acquired absence of other specified parts of digestive tract; Z79.899 Other long term (current) drug therapy

== ENCOUNTER 2024-03-01 04:14 | Inpatient (IN) | payer MEDICARE, OTHER ==
[~2024-03-01] VITALS: Ht 182.9 cm; Wt 81.0 kg
[~2024-03-01 04:14] MED LIST changes: +EPIP0.3I2 IM; +FOLI1TAB11 PO; +LISI20TA33 PO; +MAGN400T2 PO; +POTA-136 PO; +TAB-TAB3 PO
[2024-03-01 04:33] LABS: BASO % 0.6 % (0.0-1.0); EOS # 0.1 10^3/uL (0.0-0.5); EOS % 1.1 % (0.0-3.0); HEMATOCRIT 36.6 % (42.0-52.0); HEMOGLOBIN 12.8 g/dl (13.5-17.5); LYMPH # 1.3 10^3/uL (1.5-5.0); LYMPH % 25.3 % (24.0-44.0); MEAN CORPUSCULAR HEMOGLOBIN 33.8 pg (27.0-33.0); MEAN CORPUSCULAR VOLUME 96.6 fl (80.0-96.0); MONO # 0.3 10^3/uL (0.0-0.8); NEUTROPHILS # 3.5 10^3/uL (1.5-8.5); NEUTROPHILS % 66.4 % (36.0-66.0); PLATELET COUNT, AUTOMATED 145 10^3/uL (150-450); RED BLOOD COUNT 3.79 10^6/uL (4.30-6.10); WHITE BLOOD COUNT 5.3 10^3/uL (4.0-10.0)
[2024-03-01 04:55] LABS: CPK CREATINE PHOSPHOKINASE 72 U/L (46-171)
[2024-03-01 05:24] LABS: ALBUMIN 3.7 G/DL (3.2-5.2); ALKALINE PHOSPHATASE 127 U/L (46-116); ALT/SGPT 27 U/L (7.0-40); AST/SGOT 65 U/L (<34); BILIRUBIN,DIRECT 0.4 MG/DL (<0.4); BLOOD UREA NITROGEN 9 MG/DL (9-23); CALCIUM LEVEL 8.8 MG/DL (8.3-10.6); CARBON DIOXIDE LEVEL 22 MMOL/L (20-31); CHLORIDE LEVEL 104 MMOL/L (98-107); CK-MB VALUE MASS < 1.0 NG/ML (<3.6); CREATININE FOR GFR 0.56 MG/DL (0.70-1.30); GLOMERULAR FILTRATION RATE > 60.0 (>49); GLUCOSE, FASTING 170 MG/DL (74-106); MB/CK RELATIVE INDEX 1.38 (< OR =4); POTASSIUM SERUM 2.9 MMOL/L (3.5-5.1); SODIUM LEVEL 139 MMOL/L (136-145); THYROID STIMULATING HORMONE 3.434 uIU/ML (0.55-4.78)
[2024-03-01] MEDS: POTASSIUM CHLORIDE 10% LIQ 20MEQ/15ML UDC PO ONE (05:36)
[2024-03-01] MEDS: KCL 10MEQ IN D5/0.45NS 1000ML 1,000 ML IV SCH (05:36)
[2024-03-01 08:12] LABS: ETHYL ALCOHOL (ETHANOL) < 0.003 % (0.000-0.010); MAGNESIUM LEVEL 1.1 MG/DL (1.8-2.4)
[2024-03-01] MEDS: POTASSIUM CHLORIDE 10MEQ SR TABLET PO ONE ×2 (08:16→21:03)
[2024-03-01] MEDS: METOPROLOL TART 25 MG TABLET PO ONE (08:16)
[2024-03-01] MEDS: MAG SULF 1GM/100ML (MAG RUN) 1 GM in IV 1 EA IV ONE ×2 (08:49→09:39)
[2024-03-01] MEDS: LACTULOSE 20GM/30ML SYRUP UDC PO ONE (09:39)
[2024-03-01] MEDS ORDERED: LISI20TA33 PO (11:25)
[2024-03-01] MEDS ORDERED: LISI10TA22 PO (11:25)
[2024-03-01] MEDS ORDERED: POTA-150 PO (11:30)
[2024-03-01] MEDS ORDERED: HOME MED LIST COMPLETE! XX SCH (11:30)
[2024-03-01] MEDS ORDERED: LORazepam 2 MG TAB PO PRN (13:10)
[2024-03-01 14:03] LABS: INR 1.05; PROTHROMBIN TIME 13.4 SECONDS (12.5-14.5)
[2024-03-01] MEDS: MULTIVITAMINS/MINERALS THERAP 1 TAB PO SCH (14:05)
[2024-03-01] MEDS: THIAMINE 100 MG TAB PO SCH (14:05)
[2024-03-01] MEDS: FOLIC ACID 1MG TAB PO SCH (14:05)
[2024-03-01] MEDS: MAG SULF 1GM/100ML (MAG RUN) 1 GM in IV 1 EA IV SCH (14:08)
[2024-03-01 16:06] VITALS: BP 171/87; TEMP 97.1; O2SAT 99
[2024-03-01] MEDS: ENOXAPARIN 40MG/0.4ML SYRINGE (J1650 PER 10MG) SC SCH (16:41)
[2024-03-01 16:55] VITALS: BP 171/87
[2024-03-01 18:44] LABS: BLOOD UREA NITROGEN 6 MG/DL (9-23); CALCIUM LEVEL 8.5 MG/DL (8.3-10.6); CARBON DIOXIDE LEVEL 25 MMOL/L (20-31); CHLORIDE LEVEL 105 MMOL/L (98-107); CREATININE FOR GFR 0.49 MG/DL (0.70-1.30); GLOMERULAR FILTRATION RATE > 60.0 (>49); GLUCOSE, FASTING 186 MG/DL (74-106); MAGNESIUM LEVEL 2.5 MG/DL (1.8-2.4); POTASSIUM SERUM 3.2 MMOL/L (3.5-5.1); SODIUM LEVEL 140 MMOL/L (136-145)
[2024-03-01 19:36] VITALS: BP 134/64; TEMP 97.5; O2SAT 99
[2024-03-01 19:36] LABS: IRON (FE) 245 UG/DL (65-175); PERCENT SATURATION 85.7 % (19.7-50.0); TOTAL IRON BINDING CAPACITY 286 UG/DL (250-425)
[2024-03-01 19:38] LABS: FERRITIN 240.3 NG/ML (10.5-307.3)
[2024-03-01 19:39] LABS: FOLATE > 24.00 NG/ML (>5.4)
[2024-03-01] MEDS: GABAPENTIN 300 MG CAP PO SCH (21:00)
[2024-03-01] MEDS: MULTIVITAMIN -ADULT INJECTION 10 ML, THIAMINE INJection 100 MG, FOLIC ACID 1 MG in NS 1... IV ONE (21:00)
[2024-03-01] MEDS: METOPROLOL TART 25 MG TABLET PO SCH (21:02)
[2024-03-01] MEDS ORDERED: RAMELTEON 8 MG TAB (ROZEREM) PO PRN (23:40)
[2024-03-02 03:28] VITALS: BP 164/74; TEMP 97.2; O2SAT 100
[2024-03-02 05:44] LABS: HEMATOCRIT 34.5 % (42.0-52.0); HEMOGLOBIN 11.9 g/dl (13.5-17.5); MEAN CORPUSCULAR HEMOGLOBIN 34.1 pg (27.0-33.0); MEAN CORPUSCULAR HGB CONC 34.5 g/dl (32.0-36.5); MEAN CORPUSCULAR VOLUME 98.9 fl (80.0-96.0); PLATELET COUNT, AUTOMATED 100 10^3/uL (150-450); RED BLOOD COUNT 3.49 10^6/uL (4.30-6.10); WHITE BLOOD COUNT 3.7 10^3/uL (4.0-10.0)
[2024-03-02 06:14] LABS: BLOOD UREA NITROGEN 7 MG/DL (9-23); CALCIUM LEVEL 8.1 MG/DL (8.3-10.6); CARBON DIOXIDE LEVEL 27 MMOL/L (20-31); CHLORIDE LEVEL 105 MMOL/L (98-107); CREATININE FOR GFR 0.58 MG/DL (0.70-1.30); GLOMERULAR FILTRATION RATE > 60.0 (>49); GLUCOSE, FASTING 134 MG/DL (74-106); MAGNESIUM LEVEL 1.8 MG/DL (1.8-2.4); POTASSIUM SERUM 3.2 MMOL/L (3.5-5.1); SODIUM LEVEL 138 MMOL/L (136-145)
[2024-03-02] MEDS: MAGNESIUM OXIDE 400MG TAB (MAG-OX) PO SCH (08:35)
[2024-03-02] MEDS: POTASSIUM CHLORIDE 10MEQ SR TABLET PO SCH (08:36)
[2024-03-02 12:00] VITALS: BP 107/70; TEMP 97.2; O2SAT 100
[2024-03-02 16:57] LABS: HEMOGLOBIN A1c 5.5 % (4.0-6.0)
[2024-03-02 20:12] VITALS: BP 158/72; TEMP 97.5; O2SAT 100
[2024-03-03 04:00] VITALS: BP 160/76; TEMP 97.5; O2SAT 99
[2024-03-03] MEDS ORDERED: PILL CUTTER 1 EACH XX PRN (07:30)
[2024-03-03 08:46] VITALS: BP 134/84
[2024-03-03] MEDS ORDERED: POTA-151 PO (11:12)
[2024-03-03] MEDS ORDERED: LISI30TA4 PO (11:12)
[2024-03-03] MEDS ORDERED: MAGN400T2 PO (11:12)
== END 2024-03-03 12:53 | disposition home health service (06) | DRG 74 ==
LOC: M ED 04:14 → M ED INP 13:04 → M MSPAV 16:06 → OBSVTOIN 03-02 13:02
PROVIDERS: ADMIT Internal Medicine; ATTEND Internal Medicine
DX: G62.1 Alcoholic polyneuropathy (principal); E72.20 Disorder of urea cycle metabolism, unspecified; D61.818 Other pancytopenia; F10.288 Alcohol dependence with other alcohol-induced disorder; E11.42 Type 2 diabetes mellitus with diabetic polyneuropathy; I10 Essential (primary) hypertension; K70.30 Alcoholic cirrhosis of liver without ascites; D69.6 Thrombocytopenia, unspecified; M54.50 Low back pain, unspecified; E87.6 Hypokalemia; E83.42 Hypomagnesemia; Z79.899 Other long term (current) drug therapy; Z91.030 Bee allergy status

== ENCOUNTER → 2024-03-11 | Outpatient (REF) | payer OTHER, MEDICARE ==
[~2024-03-11] MED LIST changes: +LISI10TA22 PO; +LISI30TA4 PO; +POTA-150 PO; +POTA-151 PO
[2024-03-11 18:27] LABS: IRON (FE) 110 UG/DL (65-175)
[2024-03-11 18:28] LABS: ALBUMIN 3.7 G/DL (3.2-5.2); ALKALINE PHOSPHATASE 128 U/L (46-116); ALT/SGPT 27 U/L (7.0-40); AST/SGOT 43 U/L (<34); BILIRUBIN,TOTAL 0.9 MG/DL (0.3-1.2); BLOOD UREA NITROGEN 10 MG/DL (9-23); CALCIUM LEVEL 9.7 MG/DL (8.3-10.6); CARBON DIOXIDE LEVEL 29 MMOL/L (20-31); CHLORIDE LEVEL 107 MMOL/L (98-107); CREATININE FOR GFR 0.64 MG/DL (0.70-1.30); GLOMERULAR FILTRATION RATE > 60.0 (>49); GLUCOSE, FASTING 212 MG/DL (74-106); POTASSIUM SERUM 4.3 MMOL/L (3.5-5.1); SODIUM LEVEL 140 MMOL/L (136-145); TOTAL PROTEIN 7.3 G/DL (5.7-8.2)
[2024-03-11 18:31] LABS: HEMATOCRIT 39.8 % (42.0-52.0); HEMOGLOBIN 13.1 g/dl (13.5-17.5); MEAN CORPUSCULAR HEMOGLOBIN 33.4 pg (27.0-33.0); MEAN CORPUSCULAR HGB CONC 32.9 g/dl (32.0-36.5); MEAN CORPUSCULAR VOLUME 101.5 fl (80.0-96.0); PLATELET COUNT, AUTOMATED 215 10^3/uL (150-450); RED BLOOD COUNT 3.92 10^6/uL (4.30-6.10); WHITE BLOOD COUNT 5.8 10^3/uL (4.0-10.0)
== END ==
LOC: M LAB REF 16:34
PROVIDERS: ATTEND Family Medicine Addiction Medicine
DX: D50.9 Iron deficiency anemia, unspecified (principal); K74.60 Unspecified cirrhosis of liver

== ENCOUNTER 2024-03-21 21:58 | Emergency (ER) | payer MEDICARE, OTHER ==
[~2024-03-21] VITALS: Ht 182.9 cm; Wt 81.4 kg
[2024-03-21 22:00] VITALS: BP 125/73; TEMP 99; O2SAT 96
== END 2024-03-22 00:13 | disposition left against medical advice (07) ==
LOC: M ED 21:58
DX: Z53.21 Procedure and treatment not carried out due to patient leaving prior to being seen by health care provider (principal)

== ENCOUNTER 2024-03-27 22:37 | Emergency (ER) | payer OTHER ==
[~2024-03-27] VITALS: Ht 182.9 cm; Wt 80.9 kg
[2024-03-27 23:02] VITALS: BP 160/75; TEMP 96.8; O2SAT 97
== END 2024-03-28 00:48 | disposition left against medical advice (07) ==
LOC: M ED 22:37 → EDBD 22:37 → M ED 03-28 00:48
DX: Z53.21 Procedure and treatment not carried out due to patient leaving prior to being seen by health care provider (principal)

== ENCOUNTER 2024-03-30 00:47 | Emergency (ER) | payer OTHER ==
[~2024-03-30] VITALS: Ht 182.9 cm; Wt 80.9 kg
[2024-03-30 00:55] VITALS: BP 146/81; TEMP 96.9; O2SAT 99
== END 2024-03-30 01:50 | disposition left against medical advice (07) ==
LOC: M ED 00:47
DX: Z53.21 Procedure and treatment not carried out due to patient leaving prior to being seen by health care provider (principal)

== ENCOUNTER 2024-04-02 18:15 | Emergency (ER) | payer OTHER ==
[2024-04-02 18:58] LABS: BASO % 0.9 % (0.0-1.0); EOS # 0.1 10^3/uL (0.0-0.5); EOS % 2.9 % (0.0-3.0); HEMATOCRIT 35.8 % (42.0-52.0); HEMOGLOBIN 12.5 g/dl (13.5-17.5); LYMPH # 1.8 10^3/uL (1.5-5.0); LYMPH % 51.4 % (24.0-44.0); MEAN CORPUSCULAR HEMOGLOBIN 33.7 pg (27.0-33.0); MEAN CORPUSCULAR HGB CONC 34.9 g/dl (32.0-36.5); MEAN CORPUSCULAR VOLUME 96.5 fl (80.0-96.0); MONO # 0.3 10^3/uL (0.0-0.8); MONO % 8.9 % (2.0-8.0); NEUTROPHILS # 1.3 10^3/uL (1.5-8.5); NEUTROPHILS % 35.9 % (36.0-66.0); RED BLOOD COUNT 3.71 10^6/uL (4.30-6.10); WHITE BLOOD COUNT 3.5 10^3/uL (4.0-10.0)
[2024-04-02 19:00] VITALS: BP 132/74; O2SAT 91
[2024-04-02 19:08] LABS: PLATELET COUNT, AUTOMATED 71 10^3/uL (150-450)
[2024-04-02 19:23] LABS: SALICYLATE LEVEL < 3.0 MG/DL (<30)
[2024-04-02 20:05] LABS: ALBUMIN 3.8 G/DL (3.2-5.2); ALKALINE PHOSPHATASE 159 U/L (46-116); ALT/SGPT 47 U/L (7.0-40); AST/SGOT 178 U/L (<34); BILIRUBIN,DIRECT 0.7 MG/DL (<0.4); BILIRUBIN,TOTAL 1.3 MG/DL (0.3-1.2); BLOOD UREA NITROGEN 9 MG/DL (9-23); CALCIUM LEVEL 8.9 MG/DL (8.3-10.6); CARBON DIOXIDE LEVEL 24 MMOL/L (20-31); CHLORIDE LEVEL 105 MMOL/L (98-107); CPK CREATINE PHOSPHOKINASE 69 U/L (46-171); CREATININE FOR GFR 0.55 MG/DL (0.70-1.30); ETHYL ALCOHOL (ETHANOL) 0.359 % (0.000-0.010); GLOMERULAR FILTRATION RATE > 60.0 (>49); GLUCOSE, FASTING 141 MG/DL (74-106); MAGNESIUM LEVEL 1.3 MG/DL (1.8-2.4); POTASSIUM SERUM 2.8 MMOL/L (3.5-5.1); SODIUM LEVEL 141 MMOL/L (136-145); THYROID STIMULATING HORMONE 1.601 uIU/ML (0.55-4.78); TOTAL PROTEIN 7.7 G/DL (5.7-8.2)
[2024-04-02] MEDS: MAG SULF 1GM/100ML (MAG RUN) 1 GM in IV 1 EA IV ONE (20:50)
[2024-04-02] MEDS: POTASSIUM CHLORIDE 10MEQ SR TABLET PO ONE (20:50)
[2024-04-02] MEDS: KCL 10MEQ/100ML SWI (KRUN) 10 MEQ in IV 1 EA IV ONE (21:54)
[2024-04-02 23:51] VITALS: TEMP 97.4
== END 2024-04-03 01:38 | disposition home or self-care (01) ==
LOC: EDBD 18:15 → M ED 18:15
DX: F10.10 Alcohol abuse, uncomplicated (principal); E87.6 Hypokalemia; E83.42 Hypomagnesemia; E11.40 Type 2 diabetes mellitus with diabetic neuropathy, unspecified; I10 Essential (primary) hypertension; E78.5 Hyperlipidemia, unspecified; F17.200 Nicotine dependence, unspecified, uncomplicated; Z79.84 Long term (current) use of oral hypoglycemic drugs; Z79.899 Other long term (current) drug therapy
CPT/HCPCS: 80047; 80048; 80076; 80143; 82077; 82550; 83735; 84443; 85025; 85049; 85055; 93041; 94760; 96365; 96366; 96368; 99284; J3475

== ENCOUNTER 2024-04-11 00:55 | Emergency (ER) | payer OTHER ==
[~2024-04-11] VITALS: Ht 182.9 cm; Wt 77.3 kg
[2024-04-11 01:34] LABS: BASO # 0.1 10^3/uL (0.0-0.2); BASO % 1.5 % (0.0-1.0); EOS # 0.1 10^3/uL (0.0-0.5); EOS % 3.1 % (0.0-3.0); HEMATOCRIT 36.5 % (42.0-52.0); HEMOGLOBIN 12.4 g/dl (13.5-17.5); LYMPH # 2.2 10^3/uL (1.5-5.0); MEAN CORPUSCULAR HEMOGLOBIN 34.2 pg (27.0-33.0); MEAN CORPUSCULAR VOLUME 100.6 fl (80.0-96.0); MONO # 0.6 10^3/uL (0.0-0.8); MONO % 13.9 % (2.0-8.0); NEUTROPHILS # 1.5 10^3/uL (1.5-8.5); NEUTROPHILS % 33.3 % (36.0-66.0); PLATELET COUNT, AUTOMATED 169 10^3/uL (150-450); RED BLOOD COUNT 3.63 10^6/uL (4.30-6.10); WHITE BLOOD COUNT 4.5 10^3/uL (4.0-10.0)
[2024-04-11 01:50] LABS: INR 1.06; PARTIAL THROMBOPLASTIN TIME 27.9 SECONDS (24.8-34.2); PROTHROMBIN TIME 13.5 SECONDS (12.5-14.5)
[2024-04-11 02:15] LABS: BLOOD UREA NITROGEN 9 MG/DL (9-23); CALCIUM LEVEL 8.5 MG/DL (8.3-10.6); CARBON DIOXIDE LEVEL 24 MMOL/L (20-31); CHLORIDE LEVEL 108 MMOL/L (98-107); CREATININE FOR GFR 0.62 MG/DL (0.70-1.30); ETHYL ALCOHOL (ETHANOL) 0.398 % (0.000-0.010); GLOMERULAR FILTRATION RATE > 60.0 (>49); GLUCOSE, FASTING 218 MG/DL (74-106); POTASSIUM SERUM 4.7 MMOL/L (3.5-5.1); SODIUM LEVEL 140 MMOL/L (136-145)
[2024-04-11 05:45] VITALS: BP 131/69; TEMP 98; O2SAT 97
== END 2024-04-11 08:52 | disposition home or self-care (01) ==
LOC: EDBD 00:55 → M ED 00:55
DX: F10.129 Alcohol abuse with intoxication, unspecified (principal); S01.01XA Laceration without foreign body of scalp, initial encounter; W19.XXXA Unspecified fall, initial encounter; Y92.009 Unspecified place in unspecified non-institutional (private) residence as the place of occurrence of the external cause; Y93.9 Activity, unspecified; Y99.9 Unspecified external cause status; J30.2 Other seasonal allergic rhinitis; Z79.899 Other long term (current) drug therapy; Z91.030 Bee allergy status

== ENCOUNTER 2024-04-29 03:04 | Emergency (ER) | payer OTHER ==
[~2024-04-29] VITALS: Ht 182.9 cm; Wt 80.9 kg
[2024-04-29 03:14] VITALS: BP 149/76; TEMP 97.1; O2SAT 94
== END 2024-04-29 04:29 | disposition left against medical advice (07) ==
LOC: M ED 03:04 → EDBD 03:04 → M ED 04:29
DX: Z53.21 Procedure and treatment not carried out due to patient leaving prior to being seen by health care provider (principal)

== ENCOUNTER 2024-05-31 04:03 | Emergency (ER) | payer OTHER ==
[~2024-05-31] VITALS: Ht 175.3 cm; Wt 88.6 kg
[~2024-05-31 04:03] MED LIST changes: +GABA-1172 PO; -GABA-282 PO
[2024-05-31 04:30] VITALS: BP 187/94; TEMP 97.8; O2SAT 97
== END 2024-05-31 06:17 | disposition home or self-care (01) ==
LOC: M ED 04:03 → EDBD 04:03 → M ED 06:17
DX: S93.409A Sprain of unspecified ligament of unspecified ankle, initial encounter (principal); X58.XXXA Exposure to other specified factors, initial encounter; Y92.9 Unspecified place or not applicable; Y93.9 Activity, unspecified; Y99.9 Unspecified external cause status; E11.40 Type 2 diabetes mellitus with diabetic neuropathy, unspecified; J30.2 Other seasonal allergic rhinitis; Z79.899 Other long term (current) drug therapy; Z91.030 Bee allergy status

== ENCOUNTER 2024-07-20 04:09 | Emergency (ER) | payer OTHER ==
[2024-07-20] MEDS: THIAMINE 100 MG TAB PO ONE (06:33)
[2024-07-20 06:45] VITALS: BP 126/78; TEMP 97.7; O2SAT 100
[2024-07-20 06:47] VITALS: O2SAT 93
== END 2024-07-20 07:40 | disposition home or self-care (01) ==
LOC: M ED 04:09
DX: S00.81XA Abrasion of other part of head, initial encounter (principal); S00.83XA Contusion of other part of head, initial encounter; S05.10XA Contusion of eyeball and orbital tissues, unspecified eye, initial encounter; W19.XXXA Unspecified fall, initial encounter; Y92.009 Unspecified place in unspecified non-institutional (private) residence as the place of occurrence of the external cause; Y93.9 Activity, unspecified; Y99.9 Unspecified external cause status; F10.10 Alcohol abuse, uncomplicated; M43.22 Fusion of spine, cervical region; M50.30 Other cervical disc degeneration, unspecified cervical region; M25.78 Osteophyte, vertebrae; E11.9 Type 2 diabetes mellitus without complications; I10 Essential (primary) hypertension; M26.9 Dentofacial anomaly, unspecified; M48.00 Spinal stenosis, site unspecified; J30.2 Other seasonal allergic rhinitis; Z85.6 Personal history of leukemia; Z79.84 Long term (current) use of oral hypoglycemic drugs; Z79.899 Other long term (current) drug therapy; Z91.030 Bee allergy status

== ENCOUNTER → 2024-08-22 | Outpatient (REF) | payer MEDICARE ==
[2024-08-22 18:44] LABS: ALBUMIN 3.7 G/DL (3.2-5.2); ALKALINE PHOSPHATASE 119 U/L (40-129); ALT/SGPT 27 U/L (7.0-40); AST/SGOT 47 U/L (<34); BLOOD UREA NITROGEN 15 MG/DL (9-23); CALCIUM LEVEL 9.6 MG/DL (8.3-10.6); CARBON DIOXIDE LEVEL 25 MMOL/L (20-31); CHLORIDE LEVEL 102 MMOL/L (98-107); CHOLESTEROL LEVEL 202 MG/DL (<200); CHOLESTEROL RISK RATIO 3.37 (<5); CREATININE FOR GFR 0.74 MG/DL (0.70-1.30); GLOMERULAR FILTRATION RATE > 60.0 (>49); GLUCOSE, FASTING 144 MG/DL (74-106); HDL CHOLESTEROL 59.8 MG/DL (>40); LDL CHOLESTEROL 123.6 MG/DL (<100); NON-HDL-C 142.2 MG/DL; POTASSIUM SERUM 3.6 MMOL/L (3.5-5.1); SODIUM LEVEL 137 MMOL/L (136-145); TOTAL PROTEIN 7.7 G/DL (5.7-8.2); TRIGLYCERIDES LEVEL 93 MG/DL (<150)
[2024-08-22 18:46] LABS: THYROID STIMULATING HORMONE 2.814 uIU/ML (0.55-4.78)
[2024-08-22 19:55] LABS: HEMOGLOBIN A1c 6.3 % (4.0-6.0)
== END ==
LOC: M LAB REF 16:35
PROVIDERS: ATTEND Family Medicine Addiction Medicine
DX: E11.42 Type 2 diabetes mellitus with diabetic polyneuropathy (principal)

== ENCOUNTER 2025-03-05 16:20 | Inpatient (IN) | payer MEDICARE ==
[~2025-03-05] VITALS: Ht 182.9 cm; Wt 77.2 kg
[~2025-03-05 16:20] MED LIST changes: -AMBI10TA PO; +CELE0.09 PO; +DICL100G11 TP; +DICL1PAT6 TOP; +LISI40TA10 PO; -LISI40TA4 PO; +METH4PACK PO; +METO1TAB87 PO; +VITA100T89 PO; +ZOLP-533 PO
[2025-03-05] MEDS: MORPHINE 2 MG/ML 1 ML VIAL IV ONE (22:30)
[2025-03-05] MEDS: NS 500 ML IV ONE (22:31)
[2025-03-05 22:39] LABS: BASO # 0.0 10^3/uL (0.0-0.2); BASO % 0.4 % (0.0-1.0); EOS # 0.0 10^3/uL (0.0-0.5); EOS % 0.2 % (0.0-3.0); LYMPH # 1.5 10^3/uL (1.5-5.0); LYMPH % 15.9 % (24.0-44.0); MONO # 0.5 10^3/uL (0.0-0.8); MONO % 5.5 % (2.0-8.0); NEUTROPHILS # 7.5 10^3/uL (1.5-8.5); NEUTROPHILS % 77.7 % (36.0-66.0); PLATELET COUNT, AUTOMATED 116 10^3/uL (150-450)
[2025-03-05 22:43] LABS: ERYTHROCYTE SEDIMENTATION RATE 41 mm/hr (0-20)
[2025-03-05 23:06] LABS: ETHYL ALCOHOL (ETHANOL) < 0.003 % (0.000-0.010)
[2025-03-05 23:08] LABS: ALT/SGPT 24 U/L (7.0-40); AST/SGOT 62 U/L (<34); C REACTIVE PROTEIN QUANTITATIV 2.25 MG/DL (<1.0); CALCIUM LEVEL 8.5 MG/DL (8.3-10.6); CARBON DIOXIDE LEVEL 25 MMOL/L (20-31); CHLORIDE LEVEL 103 MMOL/L (98-107); CREATININE FOR GFR 0.60 MG/DL (0.70-1.30); GLOMERULAR FILTRATION RATE > 90.0 (>49); MAGNESIUM LEVEL 1.5 MG/DL (1.8-2.4); POTASSIUM SERUM 4.2 MMOL/L (3.5-5.1); SODIUM LEVEL 142 MMOL/L (136-145)
[2025-03-06] MEDS: KETOROLAC 30 MG/ML 1 ML VIAL IV ONE (00:40)
[2025-03-06] MEDS: MAG SULF 1GM/100ML (MAG RUN) 1 GM in IV 1 EA IV ONE (00:41)
[2025-03-06] MEDS: PERCOCET 5MG/325MG TAB PO ONE ×2 (01:02→06:55)
[2025-03-06] MEDS ORDERED: DEXTROSE 50% 50 ML SYRINGE IV PRN (02:45)
[2025-03-06] MEDS ORDERED: ACETAMINOPHEN 325 MG TAB PO PRN (02:45)
[2025-03-06] MEDS ORDERED: GLUCOSE 4 GM CHEW PO PRN (02:45)
[2025-03-06] MEDS ORDERED: GLUCAGON INJ 1 MG VIAL SC PRN (02:45)
[2025-03-06] MEDS ORDERED: IBUPROFEN 600 MG TAB PO PRN (02:45)
[2025-03-06] MEDS ORDERED: ACETAMINOPHEN 500 MG TAB PO PRN (02:45)
[2025-03-06] MEDS: MAGNESIUM OXIDE 400 MG TAB PO ONE (04:37)
[2025-03-06] MEDS ORDERED: HOME MED LIST COMPLETE! XX SCH (07:45)
[2025-03-06] MEDS: INSULIN LISPRO (NovoLOG) PER UNIT SC SCH ×2 (08:11→21:00)
[2025-03-06] MEDS: MAGNESIUM OXIDE 400 MG TAB PO SCH (08:11)
[2025-03-06] MEDS: FOLIC ACID 1 MG TAB PO SCH (08:11)
[2025-03-06] MEDS: THIAMINE 100 MG TAB PO SCH (08:11)
[2025-03-06] MEDS: MULTIVITAMINS/MINERALS THERAP 1 TAB PO SCH (08:11)
[2025-03-06] MEDS ORDERED: MAGNESIUM OXIDE 400 MG TAB PO SCH (09:00)
[2025-03-06] MEDS: METOPROLOL TART 25 MG TABLET PO SCH (10:31)
[2025-03-06] MEDS ORDERED: MAALOX 30 ML SUSP *UDC PO PRN (14:55)
[2025-03-06] MEDS ORDERED: MOM 30 ML SUSPENSION UDC PO PRN (14:55)
[2025-03-06 16:27] LABS: CALCIUM LEVEL 9.0 MG/DL (8.3-10.6); CARBON DIOXIDE LEVEL 27 MMOL/L (20-31); CHLORIDE LEVEL 100 MMOL/L (98-107); CREATININE FOR GFR 0.70 MG/DL (0.70-1.30); GLOMERULAR FILTRATION RATE > 90.0 (>49); POTASSIUM SERUM 3.8 MMOL/L (3.5-5.1); SODIUM LEVEL 138 MMOL/L (136-145)
[2025-03-06 16:35] VITALS: BP 161/78; TEMP 97.9; O2SAT 100
[2025-03-06 17:00] VITALS: BP 161/78
[2025-03-06 20:42] VITALS: BP 157/73; TEMP 97.3; O2SAT 99
[2025-03-06] MEDS: ENOXAPARIN 40 MG/0.4 ML SYRINGE (J1650 PER 10MG) SC SCH (21:00)
[2025-03-06 21:28] VITALS: BP 157/74
[2025-03-06] MEDS: OXAZEPAM 15MG CAP PO ONE (22:16)
[2025-03-07] VITALS (7 sets, daily range): BP systolic 119–152; BP diastolic 63–87; TEMP 97.3–98.1; O2SAT 97–100
[2025-03-07] MEDS: OXAZEPAM 15MG CAP PO SCH (05:58)
[2025-03-07 07:02] LABS: CALCIUM LEVEL 8.8 MG/DL (8.3-10.6); CARBON DIOXIDE LEVEL 27 MMOL/L (20-31); CHLORIDE LEVEL 103 MMOL/L (98-107); CREATININE FOR GFR 0.65 MG/DL (0.70-1.30); GLOMERULAR FILTRATION RATE > 90.0 (>49); MAGNESIUM LEVEL 2.1 MG/DL (1.8-2.4); POTASSIUM SERUM 4.2 MMOL/L (3.5-5.1); SODIUM LEVEL 139 MMOL/L (136-145)
[2025-03-07] MEDS: RAMELTEON 8 MG TAB PO PRN (21:17)
[2025-03-08 04:00] VITALS: BP 154/79; TEMP 97.7; O2SAT 100
[2025-03-08 06:49] LABS: BASO # 0.0 10^3/uL (0.0-0.2); BASO % 0.7 % (0.0-1.0); EOS # 0.1 10^3/uL (0.0-0.5); EOS % 2.7 % (0.0-3.0); LYMPH # 1.3 10^3/uL (1.5-5.0); LYMPH % 31.5 % (24.0-44.0); MONO # 0.3 10^3/uL (0.0-0.8); MONO % 7.8 % (2.0-8.0); NEUTROPHILS # 2.3 10^3/uL (1.5-8.5); NEUTROPHILS % 57.1 % (36.0-66.0); PLATELET COUNT, AUTOMATED 103 10^3/uL (150-450)
[2025-03-08 07:04] LABS: ALT/SGPT 18 U/L (7.0-40); AST/SGOT 35 U/L (<34); CALCIUM LEVEL 8.9 MG/DL (8.3-10.6); CARBON DIOXIDE LEVEL 24 MMOL/L (20-31); CHLORIDE LEVEL 106 MMOL/L (98-107); CREATININE FOR GFR 0.67 MG/DL (0.70-1.30); GLOMERULAR FILTRATION RATE > 90.0 (>49); POTASSIUM SERUM 4.2 MMOL/L (3.5-5.1); SODIUM LEVEL 142 MMOL/L (136-145)
[2025-03-08 08:37] VITALS: BP 152/81
[2025-03-08] MEDS ORDERED: THERTAB19 PO (11:43)
[2025-03-08 12:00] VITALS: BP 155/73; TEMP 97.7; O2SAT 100
== END 2025-03-08 14:47 | disposition home or self-care (01) | DRG 552 ==
LOC: EDBD 16:20 → M ED 16:20 → M ED INP 03-06 14:53 → M MSPAV 03-06 16:24
PROVIDERS: ADMIT Student in an Organized Health Care Education/Training Program; ATTEND Family Medicine
DX: M47.817 Spondylosis without myelopathy or radiculopathy, lumbosacral region (principal); Z66 Do not resuscitate; E11.42 Type 2 diabetes mellitus with diabetic polyneuropathy; I10 Essential (primary) hypertension; M48.02 Spinal stenosis, cervical region; K21.9 Gastro-esophageal reflux disease without esophagitis; K70.30 Alcoholic cirrhosis of liver without ascites; E78.5 Hyperlipidemia, unspecified; G47.00 Insomnia, unspecified; K59.00 Constipation, unspecified; G89.29 Other chronic pain; R26.89 Other abnormalities of gait and mobility; R29.6 Repeated falls; E83.42 Hypomagnesemia; F10.20 Alcohol dependence, uncomplicated; Z79.84 Long term (current) use of oral hypoglycemic drugs; Z79.899 Other long term (current) drug therapy; Z91.030 Bee allergy status; Z90.49 Acquired absence of other specified parts of digestive tract

== ENCOUNTER 2025-03-14 05:08 | Emergency (ER) | payer MEDICARE ==
[~2025-03-14] VITALS: Ht 182.9 cm; Wt 79.0 kg
[~2025-03-14 05:08] MED LIST changes: +THERTAB19 PO
[2025-03-14 06:00] LABS: PLATELET COUNT, AUTOMATED 174 10^3/uL (150-450)
[2025-03-14 06:17] LABS: AMPHETAMINES LEVEL URINE NEGATIVE (NEGATIVE); BARBITURATES URINE NEGATIVE (NEGATIVE); BENZODIAZEPINES URINE NEGATIVE (NEGATIVE)
[2025-03-14 06:18] LABS: CANNABINOIDS URINE NEGATIVE (NEGATIVE); COCAINE METABOLITE URINE NEGATIVE (NEGATIVE); METHADONE URINE NEGATIVE (NEGATIVE); OPIATES URINE NEGATIVE (NEGATIVE); PHENCYCLIDINE URINE NEGATIVE (NEGATIVE)
[2025-03-14 06:21] LABS: SALICYLATE LEVEL < 3.0 MG/DL (<30)
[2025-03-14 06:22] LABS: ALT/SGPT 35 U/L (7.0-40); AST/SGOT 63 U/L (<34); CALCIUM LEVEL 9.3 MG/DL (8.3-10.6); CARBON DIOXIDE LEVEL 22 MMOL/L (20-31); CHLORIDE LEVEL 106 MMOL/L (98-107); CREATININE FOR GFR 0.62 MG/DL (0.70-1.30); GLOMERULAR FILTRATION RATE > 90.0 (>49); POTASSIUM SERUM 3.7 MMOL/L (3.5-5.1); SODIUM LEVEL 142 MMOL/L (136-145)
[2025-03-14 06:40] LABS: ETHYL ALCOHOL (ETHANOL) 0.361 % (0.000-0.010)
[2025-03-14] MEDS ORDERED: HOME MED LIST COMPLETE! XX SCH (08:00)
[2025-03-14] MEDS: FOLIC ACID 1 MG TAB PO SCH (08:23)
[2025-03-14] MEDS: MULTIVITAMINS/MINERALS THERAP 1 TAB PO SCH (08:23)
[2025-03-14] MEDS: THIAMINE 100 MG TAB PO SCH (08:23)
[2025-03-14] MEDS ORDERED: OXAZ30CA2 PO (10:52)
[2025-03-14 11:09] VITALS: BP 122/65; TEMP 97.3; O2SAT 99
== END 2025-03-14 11:17 | disposition home or self-care (01) ==
LOC: M ED 05:08
DX: F10.229 Alcohol dependence with intoxication, unspecified (principal); E11.9 Type 2 diabetes mellitus without complications; Z79.4 Long term (current) use of insulin; I10 Essential (primary) hypertension; K21.9 Gastro-esophageal reflux disease without esophagitis; F17.200 Nicotine dependence, unspecified, uncomplicated; Z79.899 Other long term (current) drug therapy

== ENCOUNTER 2025-03-20 08:40 | Emergency (ER) | payer MEDICARE ==
[~2025-03-20] VITALS: Ht 182.9 cm; Wt 80.9 kg
[~2025-03-20 08:40] MED LIST changes: +OXAZ30CA2 PO
[2025-03-20 09:12] LABS: BASO # 0.1 10^3/uL (0.0-0.2); BASO % 1.1 % (0.0-1.0); EOS # 0.2 10^3/uL (0.0-0.5); EOS % 3.1 % (0.0-3.0); LYMPH # 2.3 10^3/uL (1.5-5.0); LYMPH % 41.7 % (24.0-44.0); MONO # 0.4 10^3/uL (0.0-0.8); MONO % 7.3 % (2.0-8.0); NEUTROPHILS # 2.6 10^3/uL (1.5-8.5); NEUTROPHILS % 46.4 % (36.0-66.0); PLATELET COUNT, AUTOMATED 212 10^3/uL (150-450)
[2025-03-20 10:07] LABS: ALT/SGPT 45.0 U/L (7.0-40); AST/SGOT 104.0 U/L (<34); CALCIUM LEVEL 8.9 MG/DL (8.3-10.6); CARBON DIOXIDE LEVEL 23.0 MMOL/L (20-31); CHLORIDE LEVEL 108.0 MMOL/L (98-107); CREATININE FOR GFR 1.02 MG/DL (0.70-1.30); ETHYL ALCOHOL (ETHANOL) 0.386 % (0.000-0.010); GLOMERULAR FILTRATION RATE 82.1 (>49); MAGNESIUM LEVEL 1.9 MG/DL (1.8-2.4); POTASSIUM SERUM 5.5 MMOL/L (3.5-5.1); SODIUM LEVEL 145.0 MMOL/L (136-145)
[2025-03-20] MEDS ORDERED: THERTAB19 PO (10:18)
[2025-03-20] MEDS ORDERED: HOME MED LIST COMPLETE! XX SCH (10:20)
[2025-03-20] MEDS: THIAMINE 100 MG TAB PO SCH (11:12)
[2025-03-20] MEDS: MULTIVITAMINS/MINERALS THERAP 1 TAB PO SCH (11:12)
[2025-03-20] MEDS: FOLIC ACID 1 MG TAB PO SCH (11:13)
[2025-03-20] MEDS: NS (Normal Saline) 0.9% 1,000 ML IV ONE (11:13)
[2025-03-20 15:17] VITALS: TEMP 98.2
[2025-03-20 16:21] VITALS: O2SAT 100
[2025-03-20 16:22] VITALS: BP 128/68
[2025-03-20] MEDS ORDERED: THIAMINE 100 MG TAB PO SCH (21:00)
[2025-03-21] MEDS ORDERED: FOLIC ACID 1 MG TAB PO SCH (09:00)
[2025-03-21] MEDS ORDERED: MULTIVITAMINS/MINERALS THERAP 1 TAB PO SCH (09:00)
== END 2025-03-20 16:37 | disposition home or self-care (01) ==
LOC: M ED 08:40
DX: F10.129 Alcohol abuse with intoxication, unspecified (principal); E11.40 Type 2 diabetes mellitus with diabetic neuropathy, unspecified; I10 Essential (primary) hypertension; M43.22 Fusion of spine, cervical region; J30.2 Other seasonal allergic rhinitis; Z91.030 Bee allergy status; Z79.899 Other long term (current) drug therapy; Z79.84 Long term (current) use of oral hypoglycemic drugs

== ENCOUNTER 2025-03-29 05:39 | Emergency (ER) | payer MEDICARE ==
[~2025-03-29] VITALS: Ht 182.9 cm; Wt 80.9 kg
[2025-03-29 05:56] VITALS: BP 168/79; TEMP 97; O2SAT 99
== END 2025-03-29 07:36 | disposition left against medical advice (07) ==
LOC: M ED 05:39
DX: Z53.21 Procedure and treatment not carried out due to patient leaving prior to being seen by health care provider (principal)

== ENCOUNTER 2025-04-05 18:56 | Emergency (ER) | payer MEDICARE ==
[~2025-04-05] VITALS: Ht 182.9 cm; Wt 85.0 kg
[2025-04-05 19:04] VITALS: TEMP 97.4
[2025-04-05 19:51] LABS: BASO # 0.0 10^3/uL (0.0-0.2); BASO % 0.8 % (0.0-1.0); EOS # 0.1 10^3/uL (0.0-0.5); EOS % 2.8 % (0.0-3.0); LYMPH # 2.0 10^3/uL (1.5-5.0); LYMPH % 55.6 % (24.0-44.0); MONO # 0.5 10^3/uL (0.0-0.8); MONO % 13.8 % (2.0-8.0); NEUTROPHILS # 1.0 10^3/uL (1.5-8.5); PLATELET COUNT, AUTOMATED 128 10^3/uL (150-450)
[2025-04-05 20:04] LABS: NEUTROPHILS % 26.7 % (36.0-66.0)
[2025-04-05 20:43] LABS: CALCIUM LEVEL 8.8 MG/DL (8.3-10.6); CARBON DIOXIDE LEVEL 26 MMOL/L (20-31); CHLORIDE LEVEL 109 MMOL/L (98-107); CREATININE FOR GFR 0.62 MG/DL (0.70-1.30); ETHYL ALCOHOL (ETHANOL) 0.453 % (0.000-0.010); GLOMERULAR FILTRATION RATE > 90.0 (>49); POTASSIUM SERUM 3.1 MMOL/L (3.5-5.1); SODIUM LEVEL 147 MMOL/L (136-145)
[2025-04-05 21:37] LABS: MAGNESIUM LEVEL 1.2 MG/DL (1.8-2.4)
[2025-04-05] MEDS ORDERED: KCL 20MEQ IN D5/NS 1000ML 1,000 ML IV SCH (22:45)
[2025-04-05] MEDS ORDERED: POTASSIUM CHLORIDE 10MEQ/100ML SWI As Ordered ONE (22:59)
[2025-04-05] MEDS: POTASSIUM CHLORIDE 10MEQ SR TABLET PO ONE (23:05)
[2025-04-05] MEDS: KCL 10MEQ/100ML SWI (KRUN) IV SCH (23:06)
[2025-04-05] MEDS: MAG SULF 1GM/100ML (MAG RUN) 1 GM in IV 1 EA IV ONE (23:06)
[2025-04-06] MEDS: MAG SULF 1GM/100ML (MAG RUN) 1 GM in IV 1 EA IV ONE (00:40)
[2025-04-06 02:00] VITALS: BP 127/68; O2SAT 97
== END 2025-04-06 02:56 | disposition home or self-care (01) ==
LOC: EDBD 18:56 → M ED 18:56
DX: E87.6 Hypokalemia (principal); E83.42 Hypomagnesemia; F10.129 Alcohol abuse with intoxication, unspecified; E11.9 Type 2 diabetes mellitus without complications; I10 Essential (primary) hypertension; Z85.6 Personal history of leukemia; I95.1 Orthostatic hypotension; J30.2 Other seasonal allergic rhinitis; Z79.84 Long term (current) use of oral hypoglycemic drugs; Z79.899 Other long term (current) drug therapy; Z91.030 Bee allergy status
CPT/HCPCS: 70450; 72125; 80048; 82077; 83735; 85025; 93005; 96365; 96366; 96368; 99285; J3475

== ENCOUNTER 2025-04-07 02:27 | Emergency (ER) | payer MEDICARE ==
[~2025-04-07] VITALS: Ht 182.9 cm; Wt 80.9 kg
[2025-04-07 06:30] LABS: BASO # 0.1 10^3/uL (0.0-0.2); BASO % 0.8 % (0.0-1.0); EOS # 0.0 10^3/uL (0.0-0.5); EOS % 0.3 % (0.0-3.0); LYMPH # 1.0 10^3/uL (1.5-5.0); LYMPH % 15.4 % (24.0-44.0); MONO # 0.7 10^3/uL (0.0-0.8); MONO % 10.9 % (2.0-8.0); NEUTROPHILS # 4.5 10^3/uL (1.5-8.5); NEUTROPHILS % 72.1 % (36.0-66.0); PLATELET COUNT, AUTOMATED 163 10^3/uL (150-450)
[2025-04-07 06:55] LABS: ALT/SGPT 47 U/L (7.0-40); AST/SGOT 102 U/L (<34); CALCIUM LEVEL 8.8 MG/DL (8.3-10.6); CARBON DIOXIDE LEVEL 22 MMOL/L (20-31); CHLORIDE LEVEL 102 MMOL/L (98-107); CREATININE FOR GFR 0.58 MG/DL (0.70-1.30); GLOMERULAR FILTRATION RATE > 90.0 (>49); POTASSIUM SERUM 3.9 MMOL/L (3.5-5.1); SODIUM LEVEL 143 MMOL/L (136-145)
[2025-04-07] MEDS: NS (Normal Saline) 0.9% 1,000 ML IV ONE (07:14)
[2025-04-07] MEDS: KETOROLAC 30 MG/ML 1 ML VIAL IV ONE (07:15)
[2025-04-07] MEDS ORDERED: ISOVUE-370 76% 100 ML VIAL As Ordered ONE (07:26)
[2025-04-07 08:03] VITALS: BP 190/98
[2025-04-07] MEDS: METOPROLOL TART 25 MG TABLET PO ONE (08:03)
[2025-04-07] MEDS: MAGNESIUM CITRATE 300 ML BTL PO ONE (12:07)
[2025-04-07] MEDS: ONDANSETRON 4MG ORAL DISINTEGRATING TAB PO ONE (14:14)
[2025-04-07 14:31] VITALS: BP 160/88; TEMP 97.8; O2SAT 96
== END 2025-04-07 14:42 | disposition home or self-care (01) ==
LOC: M ED 02:27
DX: K59.00 Constipation, unspecified (principal); E11.9 Type 2 diabetes mellitus without complications; I10 Essential (primary) hypertension; Z85.6 Personal history of leukemia; K76.0 Fatty (change of) liver, not elsewhere classified
CPT/HCPCS: 74018; 74177; 80053; 83605; 83690; 85025; 93005; 96361; 96374; 99285; J1885; Q9967

== ENCOUNTER 2025-04-12 16:50 | Inpatient (IN) | payer MEDICARE ==
[~2025-04-12] VITALS: Ht 182.9 cm; Wt 88.0 kg
[2025-04-12] MEDS: ACETAMINOPHEN 325 MG TAB PO ONE (17:37)
[2025-04-12 18:04] LABS: PLATELET COUNT, AUTOMATED 83 10^3/uL (150-450)
[2025-04-12 18:11] LABS: LYMPHOCYTES 7 % (16-44); MONOCYTES 2 % (0-5); NEUTROPHILS 86 % (28-66); PLATELET ESTIMATE DECREASED (NORMAL)
[2025-04-12 18:12] LABS: ALT/SGPT 40 U/L (7.0-40); AST/SGOT 105 U/L (<34); CALCIUM LEVEL 8.4 MG/DL (8.3-10.6); CARBON DIOXIDE LEVEL 19 MMOL/L (20-31); CHLORIDE LEVEL 101 MMOL/L (98-107); CREATININE FOR GFR 0.60 MG/DL (0.70-1.30); GLOMERULAR FILTRATION RATE > 90.0 (>49); POTASSIUM SERUM 2.8 MMOL/L (3.5-5.1); SODIUM LEVEL 138 MMOL/L (136-145)
[2025-04-12] MEDS ORDERED: ACETAMINOPHEN 325 MG TAB PO ONE (18:35)
[2025-04-12 18:46] LABS: INR 1.09
[2025-04-12 18:53] LABS: MAGNESIUM LEVEL 1.1 MG/DL (1.8-2.4)
[2025-04-12] MEDS: NS 0.9% IV ONE (19:02)
[2025-04-12] MEDS: [UNRECOGNIZED DRUG - OTHER] IV ONE (19:02)
[2025-04-12] MEDS: KCL 10MEQ/100ML SWI (KRUN) 10 MEQ in IV 1 EA IV ONE (19:02)
[2025-04-12] MEDS: POTASSIUM CHLORIDE 10MEQ SR TABLET PO ONE (19:03)
[2025-04-12] MEDS: PIPERACILLIN/TAZOBACTAM SOD 4.5 GM in DEXTROSE 5% (D5W) ADV/MINI-BAG 50 ML IV ONE (19:03)
[2025-04-12] MEDS ORDERED: ISOVUE-370 76% 100 ML VIAL As Ordered ONE (19:19)
[2025-04-12 19:29] LABS: APPEARANCE, URINE CLOUDY (CLEAR); BACTERIA, URINE AUTO 2+ (NEGATIVE); BILIRUBIN, URINE AUTO 1+ (NEGATIVE); BLOOD, URINE BLOOD 3+ (NEGATIVE); GLUCOSE, URINE (UA) AUTO NEGATIVE (NEGATIVE); KETONE, URINE AUTO NEGATIVE (NEGATIVE); LEUKOCYTE ESTERASE, URINE AUTO 3+ (NEGATIVE); MUCUS, URINE SMALL (NEGATIVE); NITRITE, URINE AUTO POSITIVE (NEGATIVE); PROTEIN, URINE AUTO 2+ mg/dL (NEGATIVE); RBC, URINE AUTO TNTC /HPF (0-3); SPECIFIC GRAVITY URINE AUTO 1.020 (1.002-1.035); SQUAMOUS EPITHELIAL CELL UR AU 3 /HPF (0-6); TRANSITIONAL EPITHELIAL AUTO <1 /HPF; UROBILINOGEN, URINE AUTO 4.0 mg/dL (0.0-2.0); WBC, URINE AUTO TNTC /HPF (0-3)
[2025-04-12] MEDS ORDERED: HOME MED LIST COMPLETE! XX SCH (20:20)
[2025-04-12] MEDS: MAG SULF 1GM/100ML (MAG RUN) 1 GM in IV 1 EA IV ONE (21:01)
[2025-04-12] MEDS ORDERED: **SFRHE** EPINEPHrine (EPIPEN) 0.3MG/0.3ML SYRINGE INJ PRN (22:35)
[2025-04-12 23:01] LABS: ABG BASE EXCESS -1.0 (-2.0-2.0); ABG HCO3 19.7 MMOL/L (22.0-26.0); ABG O2 SATURATION 97.6 % (95.0-99.0); ABG PARTIAL PRESSURE CO2 23.2 mmHg (35.0-45.0); ABG PARTIAL PRESSURE O2 89.2 mmHg (75.0-100.0); ABG STANDARD HCO3 23.6 MMOL/L. (22.0-26.0); ABG TOTAL CO2 20.4 MMOL/L (23.0-31.0); ABG pH (ARTERIAL) 7.547 UNITS (7.350-7.450)
[2025-04-12] MEDS: NS (Normal Saline) 0.9% 1,000 ML IV SCH (23:01)
[2025-04-12] MEDS: ACETAMINOPHEN 325 MG TAB PO PRN (23:14)
[2025-04-12] MEDS: KCL 10MEQ/100ML SWI (KRUN) 10 MEQ in IV 1 EA IV SCH (23:15)
[2025-04-13] VITALS (8 sets, daily range): BP systolic 123–169; BP diastolic 66–81; TEMP 97.8–100.4; O2SAT 98–100
[2025-04-13] MEDS: PIPERACILLIN/TAZOBACTAM SOD 3.375 GM in DEXTROSE 5% (D5W) ADV/MINI-BAG 50 ML IV SCH (01:20)
[2025-04-13] MEDS ORDERED: traMADol 50 MG TAB As Ordered ONE (02:40)
[2025-04-13 04:01] LABS: BASO # 0.1 10^3/uL (0.0-0.2); BASO % 0.5 % (0.0-1.0); EOS # 0.0 10^3/uL (0.0-0.5); EOS % 0.1 % (0.0-3.0); LYMPH # 0.9 10^3/uL (1.5-5.0); LYMPH % 7.6 % (24.0-44.0); MONO # 0.8 10^3/uL (0.0-0.8); MONO % 6.9 % (2.0-8.0); NEUTROPHILS # 9.0 10^3/uL (1.5-8.5); NEUTROPHILS % 79.1 % (36.0-66.0)
[2025-04-13 04:02] LABS: PLATELET COUNT, AUTOMATED 72 10^3/uL (150-450)
[2025-04-13] MEDS: traMADol 50 MG TAB PO PRN (04:31)
[2025-04-13 04:36] LABS: PLATELET COUNT, AUTOMATED 71 10^3/uL (150-450)
[2025-04-13 05:32] LABS: ALT/SGPT 43 U/L (7.0-40); AST/SGOT 121 U/L (<34); CALCIUM LEVEL 7.6 MG/DL (8.3-10.6); CARBON DIOXIDE LEVEL 22 MMOL/L (20-31); CHLORIDE LEVEL 105 MMOL/L (98-107); CREATININE FOR GFR 0.55 MG/DL (0.70-1.30); GLOMERULAR FILTRATION RATE > 90.0 (>49); POTASSIUM SERUM 2.9 MMOL/L (3.5-5.1); SODIUM LEVEL 139 MMOL/L (136-145)
[2025-04-13] MEDS: KCL 10MEQ/100ML SWI (KRUN) 10 MEQ in IV 1 EA IV SCH ×2 (06:28→09:31)
[2025-04-13 06:38] LABS: MAGNESIUM LEVEL 1.2 MG/DL (1.8-2.4)
[2025-04-13] MEDS ORDERED: DEXTROSE 50% 50 ML SYRINGE IV PRN (08:00)
[2025-04-13] MEDS ORDERED: GLUCAGON INJ 1 MG VIAL SC PRN (08:00)
[2025-04-13] MEDS ORDERED: GLUCOSE 4 GM CHEW PO PRN (08:00)
[2025-04-13] MEDS: POTASSIUM CHLORIDE 10MEQ SR TABLET PO SCH (08:21)
[2025-04-13] MEDS: MULTIVITAMINS/MINERALS THERAP 1 TAB PO SCH (08:21)
[2025-04-13] MEDS: FOLIC ACID 1 MG TAB PO SCH (08:21)
[2025-04-13] MEDS: MAGNESIUM OXIDE 400 MG TAB PO SCH (08:21)
[2025-04-13] MEDS: METOPROLOL TART 25 MG TABLET PO SCH (08:21)
[2025-04-13] MEDS: THIAMINE 100 MG TAB PO SCH (08:22)
[2025-04-13] MEDS: MAG SULF 1GM/100ML (MAG RUN) 1 GM in IV 1 EA IV SCH (08:23)
[2025-04-13] MEDS: ENOXAPARIN 40 MG/0.4 ML SYRINGE (J1650 PER 10MG) SC SCH (08:39)
[2025-04-13] MEDS ORDERED: POTASSIUM CHLORIDE 10MEQ SR TABLET PO SCH (09:00)
[2025-04-13] MEDS ORDERED: MAGNESIUM OXIDE 400 MG TAB PO SCH (09:00)
[2025-04-13] MEDS: LACTULOSE 20 GM/30 ML SYRUP UDC PO SCH (12:15)
[2025-04-13] MEDS: INSULIN LISPRO (NovoLOG) PER UNIT SC SCH ×2 (12:16→21:00)
[2025-04-13 17:06] LABS: CALCIUM LEVEL 8.0 MG/DL (8.3-10.6); CARBON DIOXIDE LEVEL 22 MMOL/L (20-31); CHLORIDE LEVEL 104 MMOL/L (98-107); CREATININE FOR GFR 0.64 MG/DL (0.70-1.30); GLOMERULAR FILTRATION RATE > 90.0 (>49); MAGNESIUM LEVEL 2.0 MG/DL (1.8-2.4); POTASSIUM SERUM 3.7 MMOL/L (3.5-5.1); SODIUM LEVEL 139 MMOL/L (136-145); VITAMIN B12 LEVEL 488 PG/ML (211-911)
[2025-04-13] MEDS: RAMELTEON 8 MG TAB PO PRN (21:05)
[2025-04-14 03:11] VITALS: BP 147/74; TEMP 98.4; O2SAT 99
[2025-04-14 05:39] VITALS: BP 134/64; TEMP 97.9; O2SAT 98
[2025-04-14 05:40] VITALS: BP 134/64
[2025-04-14 05:52] LABS: BASO # 0.0 10^3/uL (0.0-0.2); BASO % 0.3 % (0.0-1.0); EOS # 0.1 10^3/uL (0.0-0.5); EOS % 0.8 % (0.0-3.0); LYMPH # 0.6 10^3/uL (1.5-5.0); LYMPH % 10.6 % (24.0-44.0); MONO # 0.3 10^3/uL (0.0-0.8); MONO % 4.2 % (2.0-8.0); NEUTROPHILS # 5.0 10^3/uL (1.5-8.5); NEUTROPHILS % 83.3 % (36.0-66.0)
[2025-04-14 05:56] LABS: PLATELET COUNT, AUTOMATED 85 10^3/uL (150-450)
[2025-04-14 06:00] VITALS: BP 134/64
[2025-04-14 06:15] LABS: ALT/SGPT 43 U/L (7.0-40); AST/SGOT 101 U/L (<34); CALCIUM LEVEL 8.0 MG/DL (8.3-10.6); CARBON DIOXIDE LEVEL 22 MMOL/L (20-31); CHLORIDE LEVEL 105 MMOL/L (98-107); CREATININE FOR GFR 0.63 MG/DL (0.70-1.30); GLOMERULAR FILTRATION RATE > 90.0 (>49); MAGNESIUM LEVEL 1.6 MG/DL (1.8-2.4); POTASSIUM SERUM 3.8 MMOL/L (3.5-5.1); SODIUM LEVEL 138 MMOL/L (136-145)
[2025-04-14] MEDS: MAG SULF 1GM/100ML (MAG RUN) 1 GM in IV 1 EA IV SCH (09:24)
[2025-04-14 12:00] VITALS: BP 121/69; TEMP 97.4; O2SAT 96
[2025-04-14 19:57] VITALS: BP 153/73; TEMP 98.2; O2SAT 98
[2025-04-15 02:37] VITALS: BP 168/80; TEMP 98.3; O2SAT 97
[2025-04-15 06:35] LABS: CALCIUM LEVEL 8.1 MG/DL (8.3-10.6); CARBON DIOXIDE LEVEL 23 MMOL/L (20-31); CHLORIDE LEVEL 104 MMOL/L (98-107); CREATININE FOR GFR 0.65 MG/DL (0.70-1.30); GLOMERULAR FILTRATION RATE > 90.0 (>49); MAGNESIUM LEVEL 1.7 MG/DL (1.8-2.4); POTASSIUM SERUM 3.6 MMOL/L (3.5-5.1); SODIUM LEVEL 136 MMOL/L (136-145)
[2025-04-15 08:02] VITALS: BP 134/69; TEMP 98.6; O2SAT 99
[2025-04-15 09:18] LABS: CALCIUM LEVEL 8.4 MG/DL (8.3-10.6); CARBON DIOXIDE LEVEL 22 MMOL/L (20-31); CHLORIDE LEVEL 105 MMOL/L (98-107); CREATININE FOR GFR 0.59 MG/DL (0.70-1.30); GLOMERULAR FILTRATION RATE > 90.0 (>49); MAGNESIUM LEVEL 1.6 MG/DL (1.8-2.4); POTASSIUM SERUM 3.7 MMOL/L (3.5-5.1); SODIUM LEVEL 137 MMOL/L (136-145)
[2025-04-15] MEDS: MAG SULF 1GM/100ML (MAG RUN) 1 GM in IV 1 EA IV SCH (11:17)
[2025-04-15 20:00] VITALS: BP 139/78
[2025-04-15] MEDS: MAGNESIUM OXIDE 400 MG TAB PO SCH (20:04)
[2025-04-15 22:00] VITALS: BP 139/78
[2025-04-16 08:00] VITALS: BP 146/65; TEMP 98; O2SAT 97
[2025-04-16 12:30] VITALS: BP 144/70
[2025-04-16 15:28] VITALS: BP 138/66; TEMP 97.3; O2SAT 99
[2025-04-16 19:13] VITALS: BP 180/88; TEMP 98.2; O2SAT 100
[2025-04-16 22:46] VITALS: BP 185/86
[2025-04-17 03:45] VITALS: BP 145/71; TEMP 97
[2025-04-17 03:49] VITALS: O2SAT 99
[2025-04-17 04:10] VITALS: BP 120/58
[2025-04-17 08:15] VITALS: BP 158/74; TEMP 97.5; O2SAT 100
[2025-04-17 19:25] VITALS: BP 158/72; TEMP 98.4; O2SAT 100
[2025-04-17 21:56] VITALS: BP 164/78; TEMP 97.3; O2SAT 98
[2025-04-18 04:59] VITALS: BP 164/79; TEMP 97.3; O2SAT 99
[2025-04-18] MEDS ORDERED: LEVO75TAB PO (08:38)
[2025-04-18] MEDS ORDERED: MAGN400T33 PO (08:38)
[2025-04-18 09:08] VITALS: BP 149/66
== END 2025-04-18 13:47 | disposition home health service (06) | DRG 872 ==
LOC: M ED 16:50 → EDBD 16:50 → M ED INP 22:20 → M PCU 04-13 00:15 → M MS5PR 04-17 21:36
PROVIDERS: ADMIT Student in an Organized Health Care Education/Training Program; ATTEND Student in an Organized Health Care Education/Training Program
DX: A41.9 Sepsis, unspecified organism (principal); N39.0 Urinary tract infection, site not specified; K76.6 Portal hypertension; M54.2 Cervicalgia; M54.50 Low back pain, unspecified; F10.20 Alcohol dependence, uncomplicated; R29.6 Repeated falls; G89.29 Other chronic pain; R65.20 Severe sepsis without septic shock; K21.9 Gastro-esophageal reflux disease without esophagitis; E11.22 Type 2 diabetes mellitus with diabetic chronic kidney disease; N18.9 Chronic kidney disease, unspecified; B96.20 Unspecified Escherichia coli [E. coli] as the cause of diseases classified elsewhere; K70.30 Alcoholic cirrhosis of liver without ascites; D69.6 Thrombocytopenia, unspecified; I12.9 Hypertensive chronic kidney disease with stage 1 through stage 4 chronic kidney disease, or unspecified chronic kidney disease; Z79.84 Long term (current) use of oral hypoglycemic drugs; Z79.899 Other long term (current) drug therapy; Z91.030 Bee allergy status; W19.XXXA Unspecified fall, initial encounter; Y92.009 Unspecified place in unspecified non-institutional (private) residence as the place of occurrence of the external cause; Z66 Do not resuscitate; Z90.49 Acquired absence of other specified parts of digestive tract

== ENCOUNTER 2025-06-10 00:29 | Emergency (ER) | payer MEDICARE ==
[~2025-06-10] VITALS: Ht 182.9 cm; Wt 80.9 kg
[~2025-06-10 00:29] MED LIST changes: +LEVO75TAB PO; +MAGN400T33 PO
[2025-06-10 00:41] VITALS: TEMP 96.8
[2025-06-10] MEDS: MIDAZOLAM INJ 2 MG/2 ML VIAL IV STA (01:42)
[2025-06-10] MEDS: HALOPERIDOL LACTATE 5 MG/ML VIAL IM STA (01:42)
[2025-06-10] MEDS: diphenhydrAMINE 50 MG/ML VIAL IM STA (01:42)
[2025-06-10 03:20] LABS: CALCIUM LEVEL 8.6 MG/DL (8.3-10.6); CARBON DIOXIDE LEVEL 22 MMOL/L (20-31); CHLORIDE LEVEL 114 MMOL/L (98-107); CREATININE FOR GFR 0.72 MG/DL (0.70-1.30); GLOMERULAR FILTRATION RATE > 90.0 (>49); POTASSIUM SERUM 3.4 MMOL/L (3.5-5.1); SODIUM LEVEL 149 MMOL/L (136-145)
[2025-06-10 03:37] LABS: ETHYL ALCOHOL (ETHANOL) 0.412 % (0.000-0.010)
[2025-06-10 05:31] VITALS: BP 165/73
[2025-06-10 06:15] VITALS: O2SAT 96
[2025-06-10] MEDS ORDERED: HOME MED LIST COMPLETE! XX SCH (07:50)
[2025-06-10] MEDS: MULTIVITAMIN -ADULT INJECTION 10 ML, THIAMINE INJection 100 MG, FOLIC ACID 1 MG in NS (... IV ONE (09:53)
== END 2025-06-10 10:41 | disposition home or self-care (01) ==
LOC: M ED 00:29
DX: S09.90XA Unspecified injury of head, initial encounter (principal); F10.129 Alcohol abuse with intoxication, unspecified; X58.XXXA Exposure to other specified factors, initial encounter; Y92.9 Unspecified place or not applicable; Y93.9 Activity, unspecified; Y99.9 Unspecified external cause status; E11.9 Type 2 diabetes mellitus without complications; I10 Essential (primary) hypertension; F32.A Depression, unspecified; J30.2 Other seasonal allergic rhinitis; F17.200 Nicotine dependence, unspecified, uncomplicated; Z79.84 Long term (current) use of oral hypoglycemic drugs; Z91.030 Bee allergy status
CPT/HCPCS: 70450; 80048; 82077; 96372; 96374; 99285; J1200; J1630; J2250

== ENCOUNTER → 2025-06-14 | Outpatient (REF) | payer MEDICARE ==
[2025-06-14 18:46] LABS: ALT/SGPT 25 U/L (7.0-40); AST/SGOT 59 U/L (<34); CALCIUM LEVEL 9.3 MG/DL (8.3-10.6); CARBON DIOXIDE LEVEL 27 MMOL/L (20-31); CHLORIDE LEVEL 100 MMOL/L (98-107); CHOLESTEROL LEVEL 215 MG/DL (<200); CHOLESTEROL RISK RATIO 3.04 (<5); CREATININE FOR GFR 0.71 MG/DL (0.70-1.30); ESTIMATED AVERAGE GLUCOSE 131.0 MG/DL (60-110); GLOMERULAR FILTRATION RATE > 90.0 (>49); LDL CHOLESTEROL 120.9 MG/DL (<100); MAGNESIUM LEVEL 1.2 MG/DL (1.8-2.4); NON-HDL-C 144.3 MG/DL; POTASSIUM SERUM 3.9 MMOL/L (3.5-5.1); SODIUM LEVEL 136 MMOL/L (136-145); TRIGLYCERIDES LEVEL 117 MG/DL (<150)
[2025-06-14 18:56] LABS: PLATELET COUNT, AUTOMATED 138 10^3/uL (150-450)
== END ==
LOC: M LAB REF 16:24
PROVIDERS: ATTEND Family Medicine Addiction Medicine
DX: E11.9 Type 2 diabetes mellitus without complications (principal)

== ENCOUNTER 2025-06-17 15:01 | Emergency (ER) | payer MEDICARE ==
[~2025-06-17] VITALS: Ht 182.9 cm; Wt 80.0 kg
[2025-06-17 15:38] LABS: VENOUS BASE EXCESS -2.8 (-2.0-2.0); VENOUS HCO3 22.9 MMOL/L (23.0-27.0); VENOUS O2 SATURATION 60.7 % (60.0-80.0); VENOUS PARTIAL PRESSURE CO2 43.2 mmHg (38.0-50.0); VENOUS PARTIAL PRESSURE O2 36.9 mmHg (30.0-50.0); VENOUS PH 7.342 UNITS (7.330-7.430); VENOUS STANDARD HCO3 21.3 MMOL/L; VENOUS TOTAL CO2 24.2 MMOL/L (24.0-28.0)
[2025-06-17 15:46] LABS: BASO # 0.1 10^3/uL (0.0-0.2); BASO % 1.5 % (0.0-1.0); EOS # 0.1 10^3/uL (0.0-0.5); EOS % 3.5 % (0.0-3.0); LYMPH # 1.7 10^3/uL (1.5-5.0); LYMPH % 43.5 % (24.0-44.0); MONO # 0.5 10^3/uL (0.0-0.8); MONO % 11.9 % (2.0-8.0); NEUTROPHILS # 1.6 10^3/uL (1.5-8.5); NEUTROPHILS % 39.3 % (36.0-66.0); PLATELET COUNT, AUTOMATED 138 10^3/uL (150-450)
[2025-06-17 16:10] LABS: ALT/SGPT 20 U/L (7.0-40); AST/SGOT 49 U/L (<34); CALCIUM LEVEL 9.1 MG/DL (8.3-10.6); CARBON DIOXIDE LEVEL 25 MMOL/L (20-31); CHLORIDE LEVEL 108 MMOL/L (98-107); CREATININE FOR GFR 0.65 MG/DL (0.70-1.30); GLOMERULAR FILTRATION RATE > 90.0 (>49); MAGNESIUM LEVEL 1.6 MG/DL (1.8-2.4); POTASSIUM SERUM 4.0 MMOL/L (3.5-5.1); SALICYLATE LEVEL < 3.0 MG/DL (<30); SODIUM LEVEL 146 MMOL/L (136-145)
[2025-06-17 16:22] LABS: ETHYL ALCOHOL (ETHANOL) 0.416 % (0.000-0.010)
[2025-06-17 16:27] LABS: OSMOLALITY SERUM 418 MOSM/KG (280-301)
[2025-06-17] MEDS: THIAMINE 200MG 2ML VIAL IM ONE (16:45)
[2025-06-17 17:31] LABS: AMPHETAMINES LEVEL URINE NEGATIVE (NEGATIVE); BARBITURATES URINE NEGATIVE (NEGATIVE); BENZODIAZEPINES URINE NEGATIVE (NEGATIVE); COCAINE METABOLITE URINE NEGATIVE (NEGATIVE)
[2025-06-17 17:32] LABS: CANNABINOIDS URINE NEGATIVE (NEGATIVE); METHADONE URINE NEGATIVE (NEGATIVE); OPIATES URINE NEGATIVE (NEGATIVE); PHENCYCLIDINE URINE NEGATIVE (NEGATIVE)
[2025-06-17 17:37] VITALS: BP 139/77; TEMP 97; O2SAT 100
== END 2025-06-17 17:40 | disposition home or self-care (01) ==
LOC: EDBD 15:01 → M ED 15:01
DX: F10.130 Alcohol abuse with withdrawal, uncomplicated (principal); Z53.9 Procedure and treatment not carried out, unspecified reason; Z91.81 History of falling; E11.9 Type 2 diabetes mellitus without complications; I12.9 Hypertensive chronic kidney disease with stage 1 through stage 4 chronic kidney disease, or unspecified chronic kidney disease; G89.29 Other chronic pain; M47.812 Spondylosis without myelopathy or radiculopathy, cervical region; Z79.84 Long term (current) use of oral hypoglycemic drugs; Z79.899 Other long term (current) drug therapy; J30.2 Other seasonal allergic rhinitis; Z91.030 Bee allergy status
CPT/HCPCS: 70450; 72125; 80048; 80076; 80143; 80307; 82077; 82140; 82803; 83735; 83930; 84443; 85025; 93005; 93041; 94760; 96372; 99285; J3411